=== PATIENT | male | born 1945 | race Caucasian/White ===

== ENCOUNTER → 2024-02-02 12:42 | Outpatient (REF) | payer MEDICARE, OTHER, SELFPAY | LOC: HWRCS 12:42 | PROVIDERS: ATTENDING PHYSICIAN Nurse Practitioner; FAMILY PHYSICIAN Family Medicine | DX: I35.1 Nonrheumatic aortic (valve) insufficiency (principal); I70.0 Atherosclerosis of aorta | CPT/HCPCS: 93306 ==

== ENCOUNTER → 2024-07-16 14:54 | Outpatient (REF) | payer MEDICARE, OTHER, SELFPAY | LOC: RAD 14:54 | PROVIDERS: ATTENDING PHYSICIAN Physician Assistant Medical | DX: R60.0 Localized edema (principal) | CPT/HCPCS: 93971 ==

== ENCOUNTER → 2024-09-28 09:08 | Outpatient (REF) | payer MEDICARE, OTHER, SELFPAY | LOC: RAD 09:08 | PROVIDERS: ATTENDING PHYSICIAN Internal Medicine; FAMILY PHYSICIAN Family Medicine | DX: R13.12 Dysphagia, oropharyngeal phase (principal) | CPT/HCPCS: 74246 ==

== ENCOUNTER → 2024-10-05 09:45 | Outpatient (REF) | payer MEDICARE, OTHER, SELFPAY | LOC: RST 09:45 | PROVIDERS: ATTENDING PHYSICIAN Internal Medicine; FAMILY PHYSICIAN Family Medicine | DX: R13.12 Dysphagia, oropharyngeal phase (principal) | CPT/HCPCS: 74230; 92611 ==

== ENCOUNTER → 2024-10-26 08:45 | Outpatient (REF) | payer MEDICARE, OTHER, SELFPAY | LOC: HWRAD 08:45 | PROVIDERS: ATTENDING PHYSICIAN Student in an Organized Health Care Education/Training Program; FAMILY PHYSICIAN Family Medicine | DX: M25.511 Pain in right shoulder (principal); M25.60 Stiffness of unspecified joint, not elsewhere classified; M79.89 Other specified soft tissue disorders; M10.9 Gout, unspecified; G89.29 Other chronic pain; M25.431 Effusion, right wrist | CPT/HCPCS: 36415; 72072; 72110; 73130 ==

== ENCOUNTER 2024-12-13 06:24 | Day surgery (SDC) | payer MEDICARE, OTHER, SELFPAY | END 2024-12-13 10:10 | disposition home or self-care (01) | LOC: GI 06:24 | PROVIDERS: ATTENDING PHYSICIAN Internal Medicine | DX: R13.10 Dysphagia, unspecified (principal); K44.9 Diaphragmatic hernia without obstruction or gangrene; K22.89 Other specified disease of esophagus; K31.89 Other diseases of stomach and duodenum; K20.90 Esophagitis, unspecified without bleeding | CPT/HCPCS: 43248; 43239; 88305; 88342 ==

== ENCOUNTER 2025-01-09 19:06 | Inpatient (IN) | payer MEDICARE, OTHER, SELFPAY ==
[2025-01-09] VITALS (10 sets, daily range): BP systolic 90–153; BP diastolic 54–68; BMI 24.6; BMI 25.6
--- NOTE | 2025-01-09 16:45 | ED.GENMED ---
History of Present Illness
General
Chief Complaint: Breathing Problem
Time Seen by Provider: 01/09/25 16:38
History of Present Illness
History of Present Illness:
79-year-old male with history of hypertension, hyperlipidemia, kwj-uwfzuiw-bosxavzip diabetes, and former tobacco use presents the emergency department for evaluation of fever as well as shortness of breath and weakness for the past 4 days. History
cannot be obtained from the patient as he is encephalopathic at this time. Per EMS he had room air saturations in the 70s and despite gradual up titration of nasal cannula oxygen, required nonrebreather for adequate oxygenation
Past History
Past History
ED Past Medical History: HTN, Hypercholesterolemia and Other (adrenal insufficiency)
ED Past Surgical History: None
Patient has exhibited threatening behavior?: No
PSI?: No
Social History
Tobacco: Non-smoker
Alcohol: None
Drug: None
Personal:
Living: correction
Employment: Employed
Review of Systems
Review of Systems
Allergies reviewed?: Yes
All Other Systems: ROS reviewed and negative except as documented in HPI and ROS
Phy Exam
Physical Exam
Physical Exam:
GEN: ill-appearing, tachypneic, acute respiratory distress
HEENT: Oral mucosa moist, no scleral icterus
Cardiac: Tachycardic, regular
Lung: Acute respiratory distress with tachypnea, no accessory muscle use, right mid and lower field crackles, diminished bibasilar breath sounds
MSK: No gross deformity or injuries
Skin: Good color, no pallor or jaundice, no rashes
Neuro: Alert, follows commands, profoundly confused
Psych: Calm, cooperative
Scores
Heart Failure Risk
Heart Failure Risk Score: Not Applicable
Sepsis
Sepsis Screening
Sepsis Assessment: Sepsis
Sepsis Screen
Sepsis Screen: Sepsis
Date: 01/09/25
Time: 22:37
Course
Orders/Labs/Results
Orders:
Orders
01/09/25 16:32
Electrocardiogram (*1) Urgent
Reason for Study: Other
Other Reason for Exam: Possible Sepsis
Cardiac Monitoring- Treatment ONCE
EKG- Treatment ONCE
IV Insert/Care/Rem.- Treatment PRN
CR Chest Portable - 1 View Urgent
Comment:
Reason For Exam: sob, fever, hypoxia
Reason Study Needs to be Portable: Patient Unstable
O2 Therapy [RESP] Urgent
Titrate/Wean O2 to maintain O2 sat greater than (%): 93
Special Instructions: TO MAINTAIN CONTINUOUS O2 SATS > OR = 93%
Pulse Ox/cont/shift [RESP] Urgent
Quantity: 1
Special Instructions: CONTINUOUS
01/09/25 16:35
Complete Blood Count/With Diff Urgent
Comprehensive Metabolic Panel Urgent
Lactic Acid Q4H
Comment: ON ICE, CANCEL 2ND ORDER IF FIRST LACTIC ACID LEVEL <2
Blood Culture Q20M
ELISA Source: Blood/Venous
Specimen Description:
Comment: Urgent from separate sites. If patient screens positive for possible sepsis
01/09/25 16:43
Acetaminophen [Tylenol/Feverall] 650 mg .ROUTE .STK-MED ONE
01/09/25 16:44
0.9% Sodium Chloride 1000 ml [Nss] 1,000 ml IV BOLUS
Acetaminophen [Tylenol/Feverall] 650 mg RECTAL NOW STA
01/09/25 16:54
COVID-19 Antigen Urgent
Source: Nasal Swab
Blood Culture Q20M
ELISA Source: Blood/Venous
Specimen Description:
Comment: Urgent from separate sites. If patient screens positive for possible sepsis
Influenza A+B Rapid Molecular Urgent
ELISA Source: Nasal Swab
Specimen Description:
01/09/25 17:04
ABG [Arterial Blood Gas] Urgent
%Oxygen/Room Air: 78
01/09/25 17:20
Azithromycin 500 mg/250 ml [Zithromax Infusion] 500 mg in 250 ml IV NOW
Cefepime HCl [Maxipime] 2,000 mg IV NOW STA
01/09/25 17:51
Sterile Water [Sterile Water For Injection] 10 ml .ROUTE .STK-MED ONE
01/09/25 18:26
Admit/Transfer Patient As Directed
Co-Sign Provider:
Level of Care: Inpatient admission
Assign to:: IMU- Intermediate Care
Physician / Group: mayra
Diagnosis: hypoxemic respiratory failure pneumonia
Reason for Hospitalization: hypoxemic respiratory failure pneumonia
Expected length of stay greater than two midnights?: Yes
ELOS- Estimated Length of Stay in days: 2
I certify the patient meets the requirements for IP care: Yes
PRN Pain Medication Management As Directed
May give lesser potent ordered pain med per pt: Yes
preference::
Protocol:: Medication orders for pain may be administered in a
manner that supports deferring to patient preference
when the pt is:
- Requesting an ordered lesser potent pain medication.
Least to most potent pain medications are defined
as: acetaminophen < NSAID < tramadol < opioids
(morphine, oxycodone, hydromorphone).
- Requesting a lesser dose of the same medication IF
ORDERED.
- Requesting a less intrusive route of administration
if both routes are prescribed by the provider (PO <
IV).
01/09/25 18:27
Code Status As Directed
Resuscitation Status: Full Code
01/09/25 18:29
Legionella Urinary Antigen Urgent
ELISA Source: Urine
Specimen Description:
MRSA Screen Routine
ELISA Source: Nose
Specimen Description:
Respiratory Culture/Gram Stain Urgent
ELISA Source: Sputum
Specimen Description:
Strep pneumoniae Antigen Urgent
ELISA Source: Urine
Specimen Description:
Abnormal Lab Results
01/09/25 01/09/25
16:35 17:04
MCV 79.8 L fL
(80.0-94.0)
MCH 26.0 L pg
(27.0-31.0)
MCHC 32.5 L g/dL
(33.0-37.0)
RDW 21.2 H %
(11.5-14.5)
Plt Count 105 L 10^3/uL
(130-400)
MPV 10.6 H fL
(7.4-10.4)
Abs Immat Gran (auto) 0.1 H 10^3/uL
(0-0.05)
Absolute Neuts (auto) 7.8 H 10^3/uL
(1.4-6.5)
Absolute Monos (auto) 1.0 H 10^3/uL
(0.1-0.6)
Immature Gran % 0.7 H %
(0-0.5)
Neutrophils % 75.4 H %
(42.2-75.2)
Lymphocytes % 11.2 L %
(20.5-51.1)
pCO2 25 L mmHg
(35-48)
pO2 73 L mmHg
(83-108)
HCO3 17.0 L mmol/L
(21-28)
Sodium 132 L mmol/L
(135-145)
Carbon Dioxide 17 L mmol/L
(22-30)
BUN 30 H mg/dl
(9-20)
Creatinine 1.4 H mg/dL
(0.7-1.3)
Glucose 67 L mg/dl
(70-99)
Calcium 8.3 L mg/dl
(8.4-10.2)
Total Bilirubin 1.7 H mg/dl
(0.2-1.3)
Total Protein 5.9 L g/dl
(6.3-8.2)
01/09/25 16:35
01/09/25 16:35
Vital Signs
Initial and Last Documented VS:
Initial Vital Signs
Temp Pulse Resp BP Pulse Ox
103 F H 103 30 153/66 78
01/09/25 16:20 01/09/25 16:20 01/09/25 16:20 01/09/25 16:20 01/09/25 16:20
Last Documented Vital Signs
Temp Pulse Resp BP Pulse Ox
98.4 F 77 27 111/55 98
01/09/25 19:12 01/09/25 22:15 01/09/25 20:00 01/09/25 22:00 01/09/25 22:15
MDM/Problems Addressed
MDM/Problems Addressed:
Significant seen on chest x-ray, patient requiring midflow O2 to maintain saturations, will be admitted for broad-spectrum IV antibiotics
*Critical Care Note
Total Time (30-74mins, 75-104mins- exclusive of procedures): Not Applicable
ED Attending Note
-
Portions of this chart may have been created with voice recognition software.� Occasional wrong word or��sound alike� substitutions may have occurred due to the inherent limitations of voice recognition software.
Discharge Plan
Departure
Patient Disposition: Admit
Date of Disposition: 01/09/25
Time of Disposition: 18:08
Admit to: IMU
Presentation/result/management discussed w/ accepting MD/DO: Hospitalist
Discharge Problem:
Multifocal pneumonia, Acute hypoxic respiratory failure
Interventions
Interventions:
*Risk Screen - Suicide Last Done: 01/09/25 16:20
*General Assessment Last Done: 01/09/25 16:20
*Neglect/Abuse Screening Last Done: 01/09/25 16:20
*ED- Fall Risk Assessment Last Done: 01/09/25 16:20
*ED COVID-19 Vaccine History Last Done: 01/09/25 16:20
ED- Cardiac Assessment Last Done: 01/09/25 16:50
ED- Pulmonary Assessment Last Done: 01/09/25 16:50
[2025-01-09 16:48] LABS: % Basophils 0.5 % (0-2); % Immature Granulocytes 0.7 % (0-0.5); % Lymphocytes 11.2 % (20.5-51.1); % Monocytes 9.2 % (1.7-9.3); % Neutrophils 75.4 % (42.2-75.2); Absolute Basophils 0.1 10^3/uL (0-0.2); Absolute Eosinophils 0.3 10^3/uL (0-0.7); Absolute Immature Granulocytes 0.1 10^3/uL (0-0.05); Absolute Lymphocytes 1.2 10^3/uL (1.2-3.4); Absolute Neutrophils 7.8 10^3/uL (1.4-6.5); Hematocrit 41.8 % (39.0-52.0); Hemoglobin 13.6 g/dL (13.0-18.0); Mean Corp Hgb Conc. 32.5 g/dL (33.0-37.0); Mean Corpuscular Volume 79.8 fL (80.0-94.0); Mean Platelet Volume 10.6 fL (7.4-10.4); Nucleated Red Blood Cells % 0 % (-); Platelet Count 105 10^3/uL (130-400); Red Blood Cell Count 5.24 10^6/uL (4.70-6.10); Red Cell Dist. Width 21.2 % (11.5-14.5); White Blood Cell Count 10.3 10^3/uL (4.8-10.8)
[2025-01-09] MEDS: NSS 1000 IV (16:49)
[2025-01-09] MEDS: TYLENOL/FEVERALL 650 MG RECTAL (16:49)
[2025-01-09 16:58] LABS: Lactic Acid 1.4 mmol/L (0.7-2.0)
[2025-01-09 16:59] LABS: ALT (SGPT) 19 U/L (0-50); AST (SGOT) 43 U/L (17-59); Albumin 3.5 g/dl (3.5-5.0); Alkaline Phosphatase 92 U/L (38-126); Blood Urea Nitrogen 30 mg/dl (9-20); Calcium 8.3 mg/dl (8.4-10.2); Carbon Dioxide 17 mmol/L (22-30); Chloride 102 mmol/L (98-107); Glucose 67 mg/dl (70-99); Potassium 4.3 mmol/L (3.5-5.1); Sodium 132 mmol/L (135-145); Total Bilirubin 1.7 mg/dl (0.2-1.3); Total Protein 5.9 g/dl (6.3-8.2); eGFR 51.45
[2025-01-09 17:15] LABS: B.E. -5.5 mmol/L; O2 Saturation % 96.6 % (94-98); PCO2 25 mmHg (35-48); PO2 73 mmHg (83-108); pH 7.44 (7.35-7.45)
[2025-01-09 17:33] LABS: COVID-19 Antigen Negative (Negative)
[2025-01-09] MEDS: MAXIPIME 2000 MG IV (17:52)
[2025-01-09] MEDS: ZITHROMAX INFUSION 250 IV (17:52)
--- NOTE | 2025-01-09 18:29 | HPS.HSE ---
Addendum entered and electronically signed by Ashely Russell MD 01/09/25 20:28:
Hypotensive so started stress dose steroids.
Addendum entered and electronically signed by Ashely Russell MD 01/09/25 20:24:
Held Antihypertensive medications. Continued IV fluids.
Original Note:
Family Physician
-
Family Physician: Hannah Deras MD
Chief Complaint
-
cough
History of Present Illness
79-year-old male past medical history of gout, chronic anemia, hypertension, adrenal insufficiency, hypothyroidism, melanoma, bipolar depression, diabetes, former tobacco use presenting with fever and shortness of breath and productive cough and
weakness for the past 4 days. He had O2 sat of 70% despite increase in nasal cannula requiring nonrebreather. He denies any sore throat. Denies sick contacts. Denies abdominal pain or nausea vomiting or diarrhea.
Medical History
Past Medical History
Past Medical History: Reports Other (gout, chronic anemia, hypertension, adrenal insufficiency, hypothyroidism, melanoma, bipolar depression, diabetes, former tobacco use )
Past Surgical History: Reports None
Social History
Tobacco: Non-smoker
Alcohol: None
Drug: None
Family History
Family History: Not pertinent
Allergies / Home Medications
Allergies reflects when Allergies were last updated in [employer].
Home Medications with original date entered in [employer]
Allergy/Medication List:
Allergies
Allergy/AdvReac Type Severity Reaction Status Date / Time
pembrolizumab (From Scholrly) Allergy Intermediate Shortness Verified 04/19/23 11:57
of Breath
Home Medications
aspirin 81 mg tablet,delayed release 81 mg PO DAILY Blood Clot Prevention/Tx 01/13/14
atorvastatin 10 mg tablet 10 mg PO QPM High Cholesterol 01/13/14
divalproex 250 mg tablet,delayed release (Depakote) 250 mg PO TID Bipolar Depression 01/13/14
ascorbic acid (vitamin C) 500 mg tablet (Vitamin C) 1 tab PO DAILY Supplement 01/13/18
glucosamine HCl 1,500 mg tablet 1 tab PO DAILY Supplement 01/13/18
melatonin 5 mg tablet 10 mg PO HS PRN SLEEP 01/13/18
carvedilol 12.5 mg tablet 12.5 mg PO Q12H Heart Disease/Condition 01/08/23
cyclosporine 0.05 % eye drops 2 drp ophthalmic (eye) Q12H Eye Condition 01/08/23
levothyroxine 75 mcg tablet 75 mcg PO DAILY AT 0700 Hormonal Agent 01/08/23
multivitamin 1 tab PO DAILY Supplement 01/08/23
tamsulosin 0.4 mg capsule 0.4 mg PO HS Urinary Issue 01/08/23
bupropion HCl 150 mg tablet,12 hr sustained-release 150 mg PO BID Bipolar Depression 03/21/23
hydrocortisone 5 mg tablet 5 mg PO QPM Anti-Inflammatory 03/21/23
Held on 05/06/23. Instructions: Resume on 05/16/23. Resume after completing prednisone taper
hydrocortisone 5 mg tablet 15 mg PO DAILY Anti-Inflammatory 03/21/23
Held on 05/06/23. Instructions: Resume on 05/16/23. Resume after completing prednisone taper
Saccharomyces boulardii 250 mg capsule (Florastor) 250 mg PO BID #14 caps 03/27/23
allopurinol 100 mg tablet 100 mg PO DAILY #30 tabs 04/24/23
ferrous sulfate 325 mg (65 mg iron) tablet (FeroSul) 325 mg PO DAILY #0 tabs 04/24/23
acetaminophen 500 mg tablet (Tylenol Extra Strength) 500 mg PO TID #0 tabs 05/06/23
colchicine (cardiac) 0.5 mg tablet 0.5 mg PO DAILY #30 tabs 05/06/23
prednisone 10 mg tablet See Rx Instructions .Route .COMPLEX #30 tabs 05/06/23
Review of Systems
-
History Source: Patient
A 12 point ROS was completed and negative except as noted: Yes
Constitutional: Reports No Symptoms
EENT: Reports No Symptoms
Respiratory: Reports See HPI
Cardiac: Reports See HPI
Abdomen/GI: Reports No Symptoms
: Reports No Symptoms
Musculoskeletal: Reports No Symptoms
Skin: Reports No Symptoms
Neurological: Reports No Symptoms
Endocrine: Reports No Symptoms
Hematologic/Lymphatic: Reports No Symptoms
Psych: Reports No Symptoms
Physical Exam
Vital Signs
Vital Signs
Temp Pulse Resp BP Pulse Ox
103 F H 97 19 146/68 96
01/09/25 16:20 01/09/25 17:30 01/09/25 17:30 01/09/25 17:00 01/09/25 17:30
Physical Exam
General: Well Developed, Well Nourished and No Apparent Distress
HEENT: NormoCephalic, Moist mucous membranes and Atraumatic
Respiratory: Clear
Cardiac: S1/S2 and Regular Rhythm; No Murmur or Rub
GI: Soft, Non Tender, Non Distended and Normal Bowel Sounds; No Organomegaly
Rectal: Deferred by Provider
Musculoskeletal: No Clubbing, No Cyanosis and No Edema
Skin: No Rash
Neuro: Nonfocal/grossly intact
Laboratory Results
-
01/09/25 16:35
01/09/25 16:35
Laboratory Results
pH 7.44 (7.35-7.45) 01/09/25 17:04
pCO2 25 mmHg (35-48) L 01/09/25 17:04
pO2 73 mmHg (83-108) L 01/09/25 17:04
HCO3 17.0 mmol/L (21-28) L 01/09/25 17:04
Lactic Acid 1.4 mmol/L (0.7-2.0) 01/09/25 16:35
Total Bilirubin 1.7 mg/dl (0.2-1.3) H 01/09/25 16:35
AST 43 U/L (17-59) 01/09/25 16:35
ALT 19 U/L (0-50) 01/09/25 16:35
Alkaline Phosphatase 92 U/L (38-126) 01/09/25 16:35
Data Reviewed
-
Lab Data: Labs Reviewed by me
Old Records: Reviewed
Impression/Plan
-
IMPRESSION:
PLAN:
# Hypoxemic respiratory failure/sepsis (fever, tachycardia) secondary to multifocal pneumonia
# History of MRSA in sputum
-Requiring nonrebreather
-Chest x-ray appears to show severe multifocal pneumonia, report pending
- COVID and influenza negative
- Check sputum culture, blood cultures
- Check strep antigen, Legionella, MRSA
- Vancomycin/Zosyn
# Mild thrombocytopenia secondary to infect
- Continue to monitor
Gout
- Continue allopurinol, colchicine
Chronic anemia
Essential hypertension
- Continue Coreg
History of adrenal insufficiency
- Increase dose of hydrocortisone when medication list available, not hypotensive may not need stress dose steroids
Hypothyroidism
- Continue levothyroxine
Melanoma
Bipolar disorder
- Continue bupropion, Depakote
Type 2 diabetes
Chronic kidney disease
- Renal function at baseline
Former tobacco use
BPH
- Continue tamsulosin
Full code
DVT prophylaxis�heparin
Regular diet
--- NOTE | 2025-01-09 23:35 | PTCARENOTE ---
Patient arrived into room 3342 with ER nurse. Pt is SOB. reports labored breathing. Sp02 88-90% on 15L MF. RT Don at bedside, added humidification and placed NRB. Sp02 increased to 98%. TRAV Santillan made aware. NSR on tele.
[2025-01-10] VITALS (71 sets, daily range): BP systolic 75–139; BP diastolic 41–78; PULSE 2–97
[2025-01-10] MEDS: FLOMAX 0.4 MG PO ×2 (00:04→20:38)
[2025-01-10] MEDS: DEPAKOTE (12 HR RELEASE) PO ×2 (00:04→00:35)
[2025-01-10] MEDS: ZOSYN 50 IV ×5 (00:12→23:14)
[2025-01-10] MEDS: SOLU-CORTEF 50 MG IV ×5 (00:14→23:14)
[2025-01-10] MEDS: HEPARIN 5000 UNITS SC ×3 (00:20→20:37)
[2025-01-10] MEDS: VANCOCIN 540 MG IV (01:03)
[2025-01-10 01:10] LABS: NT-proBNP 9710 pg/ml
--- NOTE | 2025-01-10 01:47 | W.PN.UPDATE ---
Addendum entered and electronically signed by TRAV Duffy 01/10/25 06:12:
bnp 9710 -no baseline for comparison
Pt was comfortable on bipap
Will check ECHO
Consider cardiology consult
Original Note:
Update Note
Progress Note Update
2345 RN reports pt arrived to unit with hypoxia and labored breathing. Placed on 15L o2 (88%) and added NRB which increased ox level to 98%.
PT admitted earlier for dx of multifocal PNA (fevers and sob x 4 days [employer]). Received ivf in ED. Pt with hx of HF. Last Ef 45% january 2024. CXR read as moderate pulmonary edema.
PLan:
-add on BNP to labs drawn earlier (no baseline)
-trial bipap
-hold any further ivf for now.
-may need dose of lasix iv - but will hold off right now as pt was hypotensive in ED and cr 1.5 (even though this may be his baseline)
--- NOTE | 2025-01-10 02:15 | PTCARENOTE ---
Pt tolerated bipap for a little less than two hours. placed back on 15L MF Sp02 95%. ProBNP resulted; reviewed with TRAV Santillan. Pt appears comfortable at this time. call roldan within reach.
[2025-01-10] MEDS: SYNTHROID 75 MCG PO (05:48)
[2025-01-10 06:00] LABS: % Basophils 0.3 % (0-2); % Eosinophils 0.9 % (0-6); % Immature Granulocytes 0.8 % (0-0.5); % Lymphocytes 4.2 % (20.5-51.1); % Monocytes 9.8 % (1.7-9.3); Absolute Eosinophils 0.1 10^3/uL (0-0.7); Absolute Immature Granulocytes 0.1 10^3/uL (0-0.05); Absolute Lymphocytes 0.3 10^3/uL (1.2-3.4); Absolute Monocytes 0.8 10^3/uL (0.1-0.6); Absolute Neutrophils 6.7 10^3/uL (1.4-6.5); Hematocrit 37.4 % (39.0-52.0); Hemoglobin 11.9 g/dL (13.0-18.0); Mean Corp Hgb Conc. 31.8 g/dL (33.0-37.0); Mean Corpuscular Hgb 25.5 pg (27.0-31.0); Mean Corpuscular Volume 80.3 fL (80.0-94.0); Mean Platelet Volume 10.6 fL (7.4-10.4); Nucleated Red Blood Cells % 0 % (-); Platelet Count 101 10^3/uL (130-400); Red Blood Cell Count 4.66 10^6/uL (4.70-6.10); Red Cell Dist. Width 21.1 % (11.5-14.5)
[2025-01-10 06:19] LABS: ALT (SGPT) 18 U/L (0-50); AST (SGOT) 44 U/L (17-59); Albumin 2.9 g/dl (3.5-5.0); Alkaline Phosphatase 74 U/L (38-126); Blood Urea Nitrogen 39 mg/dl (9-20); Calcium 7.9 mg/dl (8.4-10.2); Carbon Dioxide 13 mmol/L (22-30); Chloride 108 mmol/L (98-107); Estimated Creatinine Clearance 38 ml/min; Glucose 77 mg/dl (70-99); Potassium 4.5 mmol/L (3.5-5.1); Sodium 136 mmol/L (135-145); Total Bilirubin 1.1 mg/dl (0.2-1.3); Total Protein 5.1 g/dl (6.3-8.2); eGFR 40.75
--- NOTE | 2025-01-10 06:34 | PTCARENOTE ---
Critical C02 13 reported to Jacque RAVI.
[2025-01-10] MEDS: SODIUM BICARBONATE 50 MEQ IV (08:07)
[2025-01-10] MEDS: VITAMIN B-12 1000 MCG PO (08:11)
[2025-01-10] MEDS: FEOSOL 325 MG PO (08:11)
[2025-01-10] MEDS: COLCHICINE 0.3 MG PO (08:11)
[2025-01-10] MEDS: DEPAKOTE (12 HR RELEASE) 250 MG PO ×3 (08:11→20:38)
[2025-01-10] MEDS: ASPIR LOW (ENTERIC COATED) 81 MG PO (08:11)
[2025-01-10] MEDS: THERAGRAN 1 TABLET PO (08:11)
[2025-01-10] MEDS: ZYLOPRIM 100 MG PO (08:11)
[2025-01-10] MEDS: WELLBUTRIN SR (12 hour sustained release) 150 MG PO ×2 (08:11→20:38)
[2025-01-10] MEDS: RESTASIS 0.05% OPHTHALMIC EMULSION 1 DROPS BOTH EYES ×2 (08:12→20:37)
--- NOTE | 2025-01-10 09:29 | PHA.VAN.IN ---
Assessment
- Assessment
Renal Function: Appears elevated from baseline
Concomitant Antimicrobials: Zosyn 3.375 gram IV q6h
Historical Micro: History of MRSA infection ((+) MRSA Nasal Swab - 05/06/2023)
Plan
- Plan
Initial / Loading Dose: Vancomycin 2000 mg IV x 1 dose
Maintenance Regimen: Dose by level - Hold further dosing for today
Monitoring: Vancomycin random level 6/3 AM labs
MRSA Screen: Ordered per protocol
Pharmacokinetics Vancomycin I
- -
Patient Age: 79
Patient Sex: Male
Vancomycin Day #: 1
Indication: Pulmonary/Respiratory
Requesting Provider: Dr. Russell
Pertinent Antimicrobial Allergies:
NKDA
Height / Weight:
Height 5 ft 11 in
Actual Weight 83.3 kg
Pertinent Past Medical History: T2DM, CKD
- Vital Signs / Lab Results
Temp Pulse Resp BP Pulse Ox
97.6 F 71 23 117/57 96
01/10/25 07:00 01/10/25 08:00 01/10/25 08:00 01/10/25 08:00 01/10/25 08:00
Lab Results - Hematology
01/09/25 01/10/25
16:35 05:36
WBC 10.3 8.0
Lab Results - Chemistry
01/09/25 01/10/25
16:35 05:36
BUN 30 H 39 H
Creatinine 1.4 H 1.7 H
Estimated Creat Clear 38
Albumin 3.5 2.9 L
01/09/25 01/09/25
16:35 20:45
Lactic Acid 1.4 Cancelled
Microbiology Results
01/09/25 23:57 Legionella Urinary Antigen - Final
Urine Negative for Legionella pneumophila Serogroup 1 antigen.
A negative result does not rule out the possiblity of
Legionella infection due to other serogroups or species of
Legionella. Clinical correlation is recommended.
Streptococcus pneumoniae Antigen (M - Final
Negative for Streptococcus pneumoniae antigen.
A negative result does not exclude infection with
Streptococcus pneumoniae. Clinical correlation is
recommended.
01/09/25 16:54 Influenza Types A & B (ANGELITA) - Final
Nasal Swab Negative for Influenza A & B, NAAT
Negative results must be combined with clinical observations
and patient history.
Nucleic Acid Amplification test (NAAT)performed on the
[employer] platform.
[2025-01-10 09:56] LABS: Glucose - Point of Care 130 mg/dl (70-99)
[2025-01-10] MEDS: DILAUDID 0.25 MG IV (10:01)
[2025-01-10 10:05] LABS: % Basophils 0.4 % (0-2); % Eosinophils 0.4 % (0-6); % Immature Granulocytes 0.7 % (0-0.5); % Lymphocytes 4.5 % (20.5-51.1); % Monocytes 8.2 % (1.7-9.3); % Neutrophils 85.8 % (42.2-75.2); Absolute Immature Granulocytes 0.1 10^3/uL (0-0.05); Absolute Lymphocytes 0.3 10^3/uL (1.2-3.4); Absolute Monocytes 0.6 10^3/uL (0.1-0.6); Absolute Neutrophils 6.5 10^3/uL (1.4-6.5); Hematocrit 37.1 % (39.0-52.0); Hemoglobin 12.2 g/dL (13.0-18.0); Mean Corp Hgb Conc. 32.9 g/dL (33.0-37.0); Mean Corpuscular Hgb 26.2 pg (27.0-31.0); Mean Corpuscular Volume 79.8 fL (80.0-94.0); Mean Platelet Volume 10.7 fL (7.4-10.4); Nucleated Red Blood Cells % 0 % (-); Platelet Count 99 10^3/uL (130-400); Red Blood Cell Count 4.65 10^6/uL (4.70-6.10); White Blood Cell Count 7.6 10^3/uL (4.8-10.8)
[2025-01-10 10:12] LABS: INR 1.36
[2025-01-10 10:13] LABS: APTT 44.7 Sec (23.4-35.0)
[2025-01-10 10:15] LABS: Lactic Acid 0.8 mmol/L (0.7-2.0)
[2025-01-10] MEDS: MORPHINE SULFATE 2 MG IV (10:19)
[2025-01-10 10:20] LABS: B.E. -9.7 mmol/L; O2 Saturation % 98.9 % (94-98); PCO2 23 mmHg (35-48); PO2 97 mmHg (83-108); pH 7.38 (7.35-7.45)
[2025-01-10] MEDS: LOW STRENGTH ASPIRIN 324 MG PO (10:20)
[2025-01-10 10:25] LABS: HCO3 13.6 mmol/L (21-28)
[2025-01-10 10:30] LABS: Troponin I 0.043 ng/ml
[2025-01-10 10:36] LABS: ALT (SGPT) 21 U/L (0-50); AST (SGOT) 44 U/L (17-59); Alkaline Phosphatase 81 U/L (38-126); Blood Urea Nitrogen 41 mg/dl (9-20); Calcium 7.8 mg/dl (8.4-10.2); Carbon Dioxide 13 mmol/L (22-30); Chloride 106 mmol/L (98-107); Estimated Creatinine Clearance 36 ml/min; Glucose 143 mg/dl (70-99); Potassium 4.3 mmol/L (3.5-5.1); Sodium 135 mmol/L (135-145); Total Bilirubin 1.1 mg/dl (0.2-1.3); Total Protein 5.3 g/dl (6.3-8.2); eGFR 38.05
--- NOTE | 2025-01-10 10:40 | RR ---
A Rapid Response was called on this patient, please see Rapid Response form.
0940 Called into room by staff, pt c/o 05/20 chest pain / pressure heaviness- EKG obtained BP 123/65 tele NSR 70 95% on 15L midflow- Rapid response called- Dr. Rosario notified- see Rapid response form
summary 3SL NTG / IV Dilaudid/ then required IV Levofed for maps 50s- started at 10am titrated up to 6mcg per parameters within 15 min. IV MSO4 given as pain still 03/20. BY 1030 pain 6. PCXR/ ECHO done at bedside. Currently US Legs at bedside.
Pain is currently at 5. BLadder scanned 325ml as prior to pain he only voided few drops in urinal. at bedside.
--- NOTE | 2025-01-10 12:22 | PTCARENOTE ---
Currently chest pain free, color improved not pale or diaphoretic. BP 120s/80s on 6mcg Levophed IV. Remains on 15L MF O2 -sao2 93%.
--- NOTE | 2025-01-10 14:05 | W.PN.HOSP.TC ---
Today's Communication/Plan
-
Stress dose steroids as has adrenal insufficiency
wean pressors, MAP goal >65
broad spectrum abx
Tx to ICU for closer monitoring
Wean o2
Pulmonary Toilet
Assessment / Plan
Assessment / Plan
# Hypoxemic respiratory failure/sepsis (fever, tachycardia) secondary to multifocal pneumonia
-possible viral pneumonia
# History of MRSA in sputum
-CT imaging - diffuse ground glass opacities
-Requiring nonrebreather
-Chest x-ray appears to show severe multifocal pneumonia, report pending
- COVID and influenza negative
- Check sputum culture, blood cultures
- Negative strep antigen, Legionella, MRSA
- Vancomycin/Zosyn
- Start doxycycline
- NO DVT on US
-IVF PRN
-Incentive rizwana, acapella
-At this point, will continue hydrocortisone - for indirect pulmonary support
#Septic Shock
-IVF PRn
-cont abx
-MAP goal >65
- Lactate neg
- Wean pressors as needed
-Continue Hydrocortisone for stress dose steroids
#Chest pain
-i suspect pleuritic with pneumonia
-was given 325 asa and nitro with no relief
-Trend Trops until peak
-ECHO with no WMA
#metabolic Acidosis
#ROHITH
-LR bolus now
-monitor HCO3
# Mild thrombocytopenia secondary to sepsis
- Continue to monitor
Gout
- Continue allopurinol, colchicine
Chronic anemia
Essential hypertension
- Hold Coreg
History of adrenal insufficiency
- Stress dose steroids
Hypothyroidism
- Continue levothyroxine
-F/u TSH
Melanoma
Bipolar disorder
- Continue bupropion, Depakote
Type 2 diabetes
ROHITH on Chronic kidney disease
- monitor with resuscitation
Former tobacco use
BPH
- Continue tamsulosin
Full code
DVT prophylaxis�heparin
Regular diet
Total time spent on today's encounter was 50 minutes which included time spent in counseling the patient/family regarding diagnosis and treatment plan as listed above, goals of care, and symptom management. Case was discussed with nursing staff,
specialists, and care coordinators/case management. All labs and imaging personally reviewed by me. Remainder the time spent in detailed review of previous records, lab data, imaging, and other medical provider documentation.
Anticipated Discharge: > 48 hours
Subjective/Interval History
-
Date of Service: January 10, 2025
Had chest pain this morning, large improvement with nitroglycerin. Morphine assisted in improvement of pain
Objective Data
-
Labs:
Laboratory Results
01/10/25 01/10/25 01/10/25
05:36 09:50 10:02
WBC 8.0 7.6
Hgb 11.9 L 12.2 L
Hct 37.4 L 37.1 L
Plt Count 101 L 99 L
PT 17.0 H
INR 1.36
APTT 44.7 H
HCO3 13.6 L*
Sodium 136 135
Potassium 4.5 4.3
Chloride 108 H 106
Carbon Dioxide 13 L* 13 L*
BUN 39 H 41 H
Creatinine 1.7 H 1.8 H
Glucose 77 143 H
Calcium 7.9 L 7.8 L
Total Bilirubin 1.1 1.1
AST 44 44
ALT 18 21
Alkaline Phosphatase 74 81
Vital Signs:
Vital Signs
Temp Pulse Resp BP Pulse Ox
97.9 F 69 22 126/63 93
01/10/25 11:00 01/10/25 12:00 01/10/25 12:00 01/10/25 12:00 01/10/25 12:00
I&O
01/09/25 01/10/25 01/11/25
06:59 06:59 06:59
Intake Total 600 / 600
Output Total 200 / 200
Balance 400 / 400
Review of Systems
-
History Source: Patient
All other systems: Not reviewed unless documented
Physical Exam
-
General: Well Developed, Well Nourished and No Apparent Distress
HEENT: Normocephalic and Atraumatic
Respiratory: Rhonchi (Bilaterally); Negative Wheezes
Cardiac: Regular Rhythm and S1/S2; Negative Murmur
GI: Soft, Nontender, Nondistended and Normal Bowel Sounds
Musculoskeletal: No Clubbing, No Cyanosis, No Edema and Other (joints improved)
Neuro: Awake
Data Reviewed
-
Diagnostic Radiology: Report Reviewed by me
CT Scan: Report Reviewed by me
Labs: Labs Reviewed by me
[2025-01-10] MEDS: LR 1000 IV (14:40)
--- NOTE | 2025-01-10 14:51 | CON.INTV ---
Consultation
Consultation Request
Date/Time Consultation Requested: 01/10/2025
Date/Time Consultation Performed: 01/10/2025
Requesting Provider: Jimbo Rosario
Performing Provider: Jackie Rodriguez
Reason for Consultation: Shock
Medical History
-
Chief Complaint: Shortness of breath
History of Present Illness:
Patient is a very pleasant 79-year-old gentleman with history of gout, adrenal insufficiency on chronic hydrocortisone who presented to the hospital with shortness of breath which started around Friday. Patient does not report much cough, sore
throat, runny nose or any expectoration. But he reports that his shortness of breath rather came quickly and has been progressive. He was noted to be hypoxic with O2 saturation in 70s and was on nasal cannula and then later on nonrebreather.
Patient's imaging was suggestive of bilateral infiltrates concerning for cardiogenic versus noncardiogenic edema. He was admitted to the hospital with suspected multifocal pneumonia and was started on broad-spectrum antibiotics. This morning an
AIRPLANE PILOT CROP DUSTING was called for hypotension and patient has since been on low-dose Levophed infusion. He had a follow-up CT earlier this morning which is suggestive of bilateral interstitial infiltrates concerning for pulmonary edema versus atypical pneumonia
versus ARDS. In view of increased oxygen requirement, hypotension and pressor requirement, patient is being transferred to ICU and wire coiler machine operator consult is requested for further input.
Patient denies any expectoration, hemoptysis or pleuritic discomfort. No reported sick contacts. No similar episodes in the past. Patient has chronically been on hydrocortisone due to adrenal insufficiency due to Keytruda use about 2 years ago
from melanoma. He has been off this medication since. Recently he was treated with higher dose of prednisone for suspected gout flare and right arm inflammation. He reports in the past also he has required intermittent prednisone bursts for
suspected gout flare versus other rheumatological diagnosis. He follows up with the rheumatology clinic as outpatient. He finished prednisone taper on 01/04 and has currently been on his baseline hydrocortisone.
Past Medical History: Reports Other (gout, chronic anemia, hypertension, adrenal insufficiency, hypothyroidism, melanoma, bipolar depression, diabetes, former tobacco use )
Past Surgical History: Reports None
Social History
Tobacco: Non-smoker
Alcohol: None
Drug: None
Family History
Family History: Not pertinent
Allergies / Home Medications
Allergies / Home Medications
Allergies
Allergy/AdvReac Type Severity Reaction Status Date / Time
pembrolizumab (From [employer]) Allergy Intermediate Shortness Verified 04/19/23 11:57
of Breath
Home Medications
�Medication �Instructions �Recorded �Confirmed �Last Taken �Type
aspirin 81 mg tablet,delayed 81 mg PO DAILY Blood Clot 01/13/14 01/09/25 01/07/23 20:00 History
release Prevention/Tx
atorvastatin 10 mg tablet 10 mg PO QPM High Cholesterol 01/13/14 01/09/25 01/07/23 18:00 History
divalproex 250 mg tablet,delayed 250 mg PO TID Bipolar Depression 01/13/14 01/09/25 01/08/23 07:00 History
release (Depakote)
carvedilol 12.5 mg tablet 12.5 mg PO Q12H Heart 01/08/23 01/09/25 01/08/23 07:00 History
Disease/Condition
cyclosporine 0.05 % eye drops 1 drp BOTH EYES Q12H Eye Condition 01/08/23 01/09/25 01/08/23 07:00 History
multivitamin 1 tab PO DAILY Supplement 01/08/23 01/09/25 01/07/23 18:00 History
tamsulosin 0.4 mg capsule 0.4 mg PO HS Urinary Issue 01/08/23 01/09/25 01/07/23 20:00 History
bupropion HCl 150 mg tablet,12 hr 150 mg PO BID Bipolar Depression 03/21/23 01/09/25 Unknown History
sustained-release
allopurinol 100 mg tablet 100 mg PO DAILY #30 tabs 04/24/23 01/09/25 Unknown Rx
ferrous sulfate 325 mg (65 mg 325 mg PO DAILY #0 tabs 04/24/23 01/09/25 Unknown Rx
iron) tablet (FeroSul)
acetaminophen 500 mg tablet 500 mg PO DAILYPRN PRN mild pain 01/09/25 01/09/25 Unknown History
(Tylenol Extra Strength)
amlodipine 5 mg tablet 5 mg PO DAILY Blood Pressure 01/09/25 01/09/25 Unknown History
carboxymethylcellulose 0.5 1 drp ophthalmic (eye) DAILYPRN 01/09/25 01/09/25 Unknown History
%-glycerin 0.9 % eye drops PRN dry eyes
(Refresh Optive)
colchicine 0.6 mg tablet 0.3 mg PO DAILY Gout 01/09/25 01/09/25 Unknown History
cyanocobalamin (vitamin B-12) 1,000 mcg PO DAILY Supplement 01/09/25 01/09/25 Unknown History
1,000 mcg tablet
famotidine 20 mg tablet 20 mg PO HSPRN PRN gerd 01/09/25 01/09/25 Unknown History
furosemide 20 mg tablet 20 mg PO DAILY Fluid 01/09/25 01/09/25 Unknown History
Retention/Swelling
hydrocortisone 5 mg tablet 5 mg PO QPM ADRENAL INSUFFICIENCY 01/09/25 01/09/25 Unknown History
hydrocortisone 5 mg tablet 15 mg PO DAILY@0800 ADRENAL 01/09/25 01/09/25 Unknown History
INSUFFICIENCY
levothyroxine 75 mcg tablet 75 mcg PO DAILY@0700 Thyroid 01/09/25 01/09/25 Unknown History
sacubitril 49 mg-valsartan 51 mg 0.5 tab PO BID Heart 01/09/25 01/09/25 Unknown History
tablet (Entresto) Disease/Condition
testosterone 1 pump topical DAILY Hormonal Agent 01/09/25 01/09/25 Unknown History
Review of Systems
-
Hematologic/Lymphatic: Other (All 14 systems reviewed and negative except as stated above in the history of present illness.)
Vitals / Labs / Diagnostic Testing
Vital Signs
Temp Pulse Resp BP Pulse Ox
97.9 F 66 20 120/59 89
01/10/25 11:00 01/10/25 14:30 01/10/25 14:30 01/10/25 14:30 01/10/25 14:30
Lab Data
01/10/25 09:50
01/10/25 09:50
Laboratory Results
01/09/25 01/10/25 01/10/25
17:04 09:50 10:02
PT 17.0 H
INR 1.36
APTT 44.7 H
pH 7.44 7.38
pCO2 25 L 23 L
pO2 73 L 97
HCO3 17.0 L 13.6 L*
O2 Delivery Level
Microbiology
01/09/25 00:01 Nose Nasal Screen MRSA (PCR) - Final
MRSA not detected - performed by PCR methodology.
01/09/25 23:57 Urine Legionella Urinary Antigen - Final
Negative for Legionella pneumophila Serogroup 1 antigen.
A negative result does not rule out the possiblity of
Legionella infection due to other serogroups or species of
Legionella. Clinical correlation is recommended.
01/09/25 23:57 Urine Streptococcus pneumoniae Antigen (M - Final
Negative for Streptococcus pneumoniae antigen.
A negative result does not exclude infection with
Streptococcus pneumoniae. Clinical correlation is
recommended.
01/09/25 16:54 Nasal Swab Influenza Types A & B (ANGELITA) - Final
Negative for Influenza A & B, NAAT
Negative results must be combined with clinical observations
and patient history.
Nucleic Acid Amplification test (NAAT)performed on the
SGB platform.
Diagnostic Testing:
Physical Exam
-
HEENT: Normocephalic
Cardiovascular: S1/S2 and Peripheral Edema (Trace pedal edema )
Respiratory: Other (Borderline tachypnea, patient developing mild shortness of breath while talking.) and Other (Inspiratory rales, bilaterally lower lobes )
GI: Soft and Non Distended
Neurology: Awake, Alert and Oriented
Skin: Warm and Dry
Assessment
-
#1. Acute hypoxic respiratory failure
- Bilateral infiltrates noted on imaging with broad differential diagnosis of cardiogenic versus noncardiogenic edema, both infectious and inflammatory diseases are in differential diagnosis
- Currently on 10 to 12 L supplemental oxygen, PO2 of 97 consistent with wide A-a gap
- Transferred to ICU, low threshold to proceed with high flow nasal cannula if needed
- Patient full code, discussed with him regarding intubation and mechanical ventilation in the event that his respiratory status deteriorates
#2. ?Bilateral interstitial infiltrates
- ?Atypical pneumonia vs Pulmonary edema vs ILD
- Patient on exam has only trace pedal edema however BNP is elevated. With his chronic hydrocortisone use and recent prednisone use, atypical infection including PJP are in differential diagnosis
- Continue broad-spectrum antibiotic Vanco, Zosyn, doxycycline. Patient unable to produce any sputum for culture
- Legionella and streptococcal pneumonia antigen negative, influenza A, B screen negative. Blood cultures negative so far. COVID-19 screen negative. Nasal MRSA screen on 01/09 negative
- Check extended respiratory viral panel, will also send for Fungitell. A-a gradient is increased.
- Check connective tissue panel including rheumatoid factor, REGINA, ANCA, and CRP
- f/u ABG and CXR in AM
- Might need right heart cath for further characterization
- Respiratory status tenuous, patient will not tolerate conscious sedation for bronchoscopy at present.
- Hemoglobin has been stable, diffuse alveolar hemorrhage less likely
#3. Hypotension with shock
- Currently on Levophed at 2, continue to titrate down as tolerated
- Lactate is reassuring at 0.8 this morning
- Multifocal pneumonia with septic shock versus cardiogenic shock both in differential diagnosis
- Await cardiology input also considering BNP is 9710.
- Continue stress dose steroids and broad-spectrum antibiotics
#4. History of adrenal insufficiency
- Chronically has been on hydrocortisone, continue stress dose for now
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
#5. History of gout,? Rheumatism
- Patient has chronically been on colchicine
- For right arm swelling, has been treated with prednisone taper twice in the last 6 months, he recently finished prednisone on January 04
- Check connective tissue disease panel
- Patient follows up with template reproduction technician as outpatient
#6. Minimal troponin leak
- Cardiology consult, await further recommendations
- Suspect it is type II related to hypoxic respiratory failure and hypotension
- Chest pain-free during my evaluation. Cardiac catheterization in 12/2022 showed only minor luminal irregularities in LAD
- Also history of aortic regurgitation and diastolic dysfunction in the past.
- In view of hypotension and need for Levophed, hold additional diuresis
#7. Chronic kidney disease, stage III/IV
- Chronic metabolic acidosis noted
- Creatinine 1.8 this morning
- Check UA for any hematuria or proteinuria
Other chronic medical diagnoses:
-HTN
-DM
-h/o Bipolar disease
-Hypothyroidism
-h/o melanoma
-BPH
-Anemia, chronic
DVT prophylaxis, subcu heparin
Critical Care time 68 mins -- The patient is admitted for acute critical illness for the treatment of vital organ failure and/or prevention of further life-threatening conditions. Total care includes time spent in review of history, physical exam,
medications, hemodynamic/ventilator parameters, laboratory data, imaging and discussion with house staff, pharmacy, respiratory therapy, wholesaler, and nursing.
Data:
CXR 01/2025: New findings suggesting moderate pulmonary edema. Pneumonia not completely excluded. Clinical and laboratory correlation recommended
CT Chest 01/2025: 1. Diffusely bilateral groundglass opacities with scattered areas of interlobular septal thickening and more confluent airspace disease in the posterior aspects of both upper and lower lobes. Trace bilateral pleural effusions and
moderate cardiomegaly. Findings suggestive of pulmonary edema. Additional considerations include ARDS and diffuse alveolar hemorrhage.
ECHO 01/2025: -Left ventricular ejection fraction is 60-65%. Normal regional wall motion.
-Enlarged right ventricular size. Normal right ventricular systolic function.
-Aortic sclerosis without stenosis. Mild to moderate, eccentric aortic
regurgitation.
-Mild tricuspid regurgitation. Estimated pulmonary artery pressure of 40-45
mmHg.
-Mildly dilated aortic root (4.2 cm)
- PASP 40-45 mm with mild TR
ECHO 01/2024: Normal left ventricular chamber size with moderate concentric left ventricular
hypertrophy.
Left ventricular ejection fraction is 40-45% by Leo's method of disc.
Mild, eccentric aortic regurgitation.
Moderate pulmonary hypertension.
Dilated Sinus of Valsalva and ascending aorta.
Compared to the prior on 01/04/2022, there is now stage 2 diastolic dysfunction
and moderate pulmonary hypertension.
[facility] 12/2022: 1. Right dominant circulation with cloacal left main and minor luminal irregularities in the LAD.
2. Top normal to mildly elevated filling pressures (LVEDP = 15 mmHg at 81.5 kg).
3. Mild to moderate aortic valve insufficiency.
4. Top normal to mildly dilated aortic root.
--- NOTE | 2025-01-10 15:10 | CON.CAR ---
Addendum entered and electronically signed by Natanael Lopez MD 01/10/25 17:14:
I saw and examined the patient.
The METAL SHEET ROLLER OPERATOR's note was reviewed and I agree with the note.
Comment: 79-year-old male (known to Dr. Lopez, his primary optical element coater), with NICM, HFmrEF, mild to moderate aortic insufficiency, hypertension, adrenal insufficiency on steroids, and former smoker who presented to the emergency room with
complaints of cough. He endorsed associated shortness of breath and weakness for 4 days prior to arrival. He presented hypoxic with an SpO2 in the 70s. Cardiology was consulted for the possibility of acute on chronic heart failure.
His exam is not very impressive for CHF. He has no significant edema and no bloating. His main complaint is SOB and he has been febrile. Troponins are flat/improved and his echo shows improved overall LVEF.
- Cont supportive care
Echo January 10 2025: CONCLUSIONS
-Left ventricular ejection fraction is 60-65%. Normal regional wall motion.
-Enlarged right ventricular size. Normal right ventricular systolic function.
-Aortic sclerosis without stenosis. Mild to moderate, eccentric aortic
regurgitation.
-Mild tricuspid regurgitation. Estimated pulmonary artery pressure of 40-45
mmHg.
-Mildly dilated aortic root (4.2 cm).
Compared to previous echo on 01/29/2024, LVEF has normalized (previously 40-
45%).
Original Note:
Consultation
Consultation Request
Date/Time Consultation Requested: 01/10/2025 15:00
Date/Time Consultation Performed: 01/10/2025 15:10
Requesting Provider: Dr. Rosario
Performing Provider: TRAV Thompson for Dr. Lopez
Reason for Consultation: Abnormal proBNP
Medical History
-
Chief Complaint: Cough
History of Present Illness:
Ananda Gutierrez is a 79-year-old male (known to Dr. Lopez, his primary optical element coater), with NICM, HFmrEF, mild to moderate aortic insufficiency, hypertension, adrenal insufficiency on steroids, and former smoker who presented to the emergency room
with complaints of cough. He endorsed associated shortness of breath and weakness for 4 days prior to arrival. He presented hypoxic with an SpO2 in the 70s. Cardiology was consulted for the possibility of acute on chronic heart failure. He also
had chest pain today. It was greater than 3 hours in length. He describes it as severe and 8/10 severity. He had associated shortness of breath and diaphoresis. Troponin at the time of the event 0.043, now 0.033. He is currently chest
pain-free. He had 3 sublingual nitroglycerin and 0.25 mg of intravenous Dilaudid that did not help his chest pain. He then had 2 mg of morphine and achieved relief.
Past Medical History
Past Medical History: Cancer (skin), CHF (HFmrEF, NICM), HTN, Hypercholesterolemia, Valvular Disease (AI) and Other (Adrenal insufficiency)
Past Surgical History: Orthopedic
Social History
Tobacco: Former Smoker
Personal:
Living: With Family
Employment: Retired
Family History
Family History: Reviewed & Not Pertinent
Allergies / Home Medications
Allergy/AdvReac Type Severity Reaction Status Date / Time
pembrolizumab (From [employer]) Allergy Intermediate Shortness Verified 04/19/23 11:57
of Breath
�Medication �Instructions �Recorded �Confirmed �Type
aspirin 81 mg tablet,delayed 81 mg PO DAILY Blood Clot 01/13/14 01/09/25 History
release Prevention/Tx
atorvastatin 10 mg tablet 10 mg PO QPM High Cholesterol 01/13/14 01/09/25 History
divalproex 250 mg tablet,delayed 250 mg PO TID Bipolar Depression 01/13/14 01/09/25 History
release (Depakote)
carvedilol 12.5 mg tablet 12.5 mg PO Q12H Heart 01/08/23 01/09/25 History
Disease/Condition
cyclosporine 0.05 % eye drops 1 drp BOTH EYES Q12H Eye Condition 01/08/23 01/09/25 History
multivitamin 1 tab PO DAILY Supplement 01/08/23 01/09/25 History
tamsulosin 0.4 mg capsule 0.4 mg PO HS Urinary Issue 01/08/23 01/09/25 History
bupropion HCl 150 mg tablet,12 hr 150 mg PO BID Bipolar Depression 03/21/23 01/09/25 History
sustained-release
allopurinol 100 mg tablet 100 mg PO DAILY #30 tabs 04/24/23 01/09/25 Rx
ferrous sulfate 325 mg (65 mg 325 mg PO DAILY #0 tabs 04/24/23 01/09/25 Rx
iron) tablet (FeroSul)
acetaminophen 500 mg tablet 500 mg PO DAILYPRN PRN mild pain 01/09/25 01/09/25 History
(Tylenol Extra Strength)
amlodipine 5 mg tablet 5 mg PO DAILY Blood Pressure 01/09/25 01/09/25 History
carboxymethylcellulose 0.5 1 drp ophthalmic (eye) DAILYPRN 01/09/25 01/09/25 History
%-glycerin 0.9 % eye drops PRN dry eyes
(Refresh Optive)
colchicine 0.6 mg tablet 0.3 mg PO DAILY Gout 01/09/25 01/09/25 History
cyanocobalamin (vitamin B-12) 1,000 mcg PO DAILY Supplement 01/09/25 01/09/25 History
1,000 mcg tablet
famotidine 20 mg tablet 20 mg PO HSPRN PRN gerd 01/09/25 01/09/25 History
furosemide 20 mg tablet 20 mg PO DAILY Fluid 01/09/25 01/09/25 History
Retention/Swelling
hydrocortisone 5 mg tablet 5 mg PO QPM ADRENAL INSUFFICIENCY 01/09/25 01/09/25 History
hydrocortisone 5 mg tablet 15 mg PO DAILY@0800 ADRENAL 01/09/25 01/09/25 History
INSUFFICIENCY
levothyroxine 75 mcg tablet 75 mcg PO DAILY@0700 Thyroid 01/09/25 01/09/25 History
sacubitril 49 mg-valsartan 51 mg 0.5 tab PO BID Heart 01/09/25 01/09/25 History
tablet (Entresto) Disease/Condition
testosterone 1 pump topical DAILY Hormonal Agent 01/09/25 01/09/25 History
Physical Exam
Vital Signs
Temp Pulse Resp BP Pulse Ox
97.9 F 66 20 120/59 89
01/10/25 11:00 01/10/25 14:30 01/10/25 14:30 01/10/25 14:30 01/10/25 14:30
Lab Results
01/10/25 09:50
01/10/25 09:50
Troponin I 0.043 ng/ml H* 01/10/25 09:50
Fzl-U-Xrztsesfxyp Pept 9710 pg/ml 01/09/25 16:35
Impression / Plan
-
I/P: 79M with NICM, HFmrEF, mild to moderate aortic insufficiency, hypertension, adrenal insufficiency on steroids, and former smoker who presented to the emergency room with complaints of cough
Primary Secretary Book Keeper: Dr. Lopez
Septic shock - a threat to life
- Tachycardia, hypotension, and fever
- Negative influenza A/B, Legionella, and SARS-CoV-2
- Stress dose steroids started
- Requiring vasopressor support with Levophed at 2 mcg/min
- Lactate < 2
Acute hypoxic respiratory failure
- Requiring nonrebreather
- Chest CT with GGO and trace bilateral pleural effusions
- Cath 12/2022: Top normal to mildly elevated filling pressures (LVEDP = 15 mmHg at 81.5 kg)
HFmrEF, recovered
- LVEF now 60 to 65%, previous 40-45%.
- GDMT on hold in the setting of hypotension
- proBNP 9000, no comparison, currently with ROHITH
Chest pain
- Does not sound consistent with ACS, troponin trending down despite hours of severe chest pain
- Hours of CP with associated SOB and diaphoresis
Abnormal troponin, type unknown
- Could be type II IL versus nonischemic myocardial injury, trend
- EKG with LVH
ROHITH on CKD with acidosis
- Creatinine 1.06 on outpatient labs (02/2024)
- Follow renal function
Adrenal insufficiency, acute on chronic
- Started on stress dose steroids today, 01/10/2025
Aortic insufficiency, mild to moderate, unchanged
Mildly dilated aortic root (4.2 cm)
Hypertension, medical therapy on hold in the setting of hypotension
Melanoma status post resection and treatment with Keytruda
Prediabetes
Bipolar disorder, on bupropion and Depakote
Former tobacco use, continue cessation recommended
Data Reviewed
-
EKG: Report Reviewed by me (Sinus rhythm, LVH, rate 99)
Medical Tests (Nuc Med, Echo etc): Report Reviewed by me (Echocardiogram as above)
Labs: Labs Reviewed by me
Old Records: Reviewed
--- NOTE | 2025-01-10 15:21 | PTCARENOTE ---
CT Chest completed. IVF bolus infusing. MAPs now 80s weaned Levophed to 2mcg/. Just voided 150ml elkin urine.
[2025-01-10 15:40] LABS: TSH Reflex To Free T4 1.56 uIU/ml (0.47-4.68)
--- NOTE | 2025-01-10 16:12 | PTCARENOTE ---
Pt. transferred from IMU. Increased work of breathing and increasing vasopressor demands.
Remains on 12L midflo dyspnea upon speaking, labored breathing at baseline. Sp02 94%.
-Per underground utility locator if sp02 drops below 90 increase modality to HHF.
Norepi titrated off via NIBP, remains normotensive at this time.
All labs sent, awaiting urine specimen.
--- NOTE | 2025-01-10 16:15 | PTCARENOTE ---
Report given to Edgard transferred to 3370 ICU by RN.
--- NOTE | 2025-01-10 16:30 | CM ---
Patient with Dx Hypoxemic respiratory failure/sepsis secondary to pneumonia. O2 15L. Receiving Levophed gtt, IV Lasix, Solucortef, IV Abx. Patient transferred from IMU to ICU today.
Spoke with patient's Yola;
the patient resides with his in a 2 story house with 1 outside step and chair lift to 2nd floor bedroom.
The patient was independent in ADLs and ambulation using his RW.
DME - RW
Prior VN
Prior [facility]
PCP - Hannah Deras
Pharmacy - [facility]
made aware patient was transferred to ICU a short time ago - gave the phone to nurse Ennis who provided with an update on his status.
Plan follow patient's respiratory status and mobility.
Plan TBD.
[2025-01-10 16:32] LABS: Troponin I 0.033 ng/ml
[2025-01-10 16:42] LABS: C-Reactive Protein > 270.00 mg/L (0.0-10.00)
[2025-01-10] MEDS: VIBRAMYCIN 100 MG PO (16:53)
[2025-01-10] MEDS: LASIX 20 MG IV (16:54)
[2025-01-10 17:22] LABS: Rheumatoid Agglutinin Less Than 10 IU (<10 IU)
--- NOTE | 2025-01-10 17:37 | PTCARENOTE ---
02 increased to 15L midflo.
[2025-01-10] MEDS: LIPITOR 10 MG PO (18:03)
--- NOTE | 2025-01-10 20:30 | PTCARENOTE ---
manager project management, pt aaox3, denies pain or SOB. SR HR 60s. Sat 96% on 15L MFNC. LA IV x 2, WNL. POC discussed, call roldan with pt.
[2025-01-10 22:10] LABS: Urine Squamous Cell 0-2 /LPF (Few)
[2025-01-10 22:12] LABS: Urine Bacteria Many (Negative)
[2025-01-11] VITALS (22 sets, daily range): BP systolic 113–142; BP diastolic 61–74; PULSE 2–88; BMI 25.7
--- NOTE | 2025-01-11 | PTCARENOTE ---
no changes in assessment, CHG cloths, era care. pt restful on Bipap. call roldan in reach.
--- NOTE | 2025-01-11 00:25 | PTCARENOTE ---
pt on Bipap with 15L- Sat 88-91%, pt appears comfortable, RR 16. BDoughertyNP aware - no changes at this time, will monitor.
--- NOTE | 2025-01-11 04:00 | PTCARENOTE ---
no changes in assessment.
[2025-01-11 04:38] LABS: Hematocrit 34.3 % (39.0-52.0); Hemoglobin 11.4 g/dL (13.0-18.0); Mean Corp Hgb Conc. 33.2 g/dL (33.0-37.0); Mean Corpuscular Hgb 25.9 pg (27.0-31.0); Mean Corpuscular Volume 77.8 fL (80.0-94.0); Mean Platelet Volume 10.1 fL (7.4-10.4); Platelet Count 129 10^3/uL (130-400); Red Blood Cell Count 4.41 10^6/uL (4.70-6.10); Red Cell Dist. Width 20.4 % (11.5-14.5); White Blood Cell Count 10.1 10^3/uL (4.8-10.8)
[2025-01-11 04:47] LABS: Vancomycin Random 11.4 ug/ml
[2025-01-11 04:54] LABS: Troponin I 0.024 ng/ml
[2025-01-11] MEDS: LASIX 20 MG IV (05:19)
[2025-01-11] MEDS: SOLU-CORTEF 50 MG IV ×4 (05:20→23:21)
[2025-01-11] MEDS: ZOSYN 50 IV ×4 (05:21→23:21)
[2025-01-11] MEDS: SYNTHROID 75 MCG PO (05:21)
[2025-01-11 05:23] LABS: ALT (SGPT) 22 U/L (0-50); AST (SGOT) 43 U/L (17-59); Albumin 2.9 g/dl (3.5-5.0); Alkaline Phosphatase 86 U/L (38-126); Blood Urea Nitrogen 62 mg/dl (9-20); Calcium 7.7 mg/dl (8.4-10.2); Carbon Dioxide 20 mmol/L (22-30); Chloride 108 mmol/L (98-107); Estimated Creatinine Clearance 34 ml/min; Glucose 283 mg/dl (70-99); Potassium 3.7 mmol/L (3.5-5.1); Sodium 137 mmol/L (135-145); Total Bilirubin 0.7 mg/dl (0.2-1.3); Total Protein 5.4 g/dl (6.3-8.2); eGFR 35.66
[2025-01-11 07:31] LABS: Glucose - Point of Care 278 mg/dl (70-99)
[2025-01-11] MEDS: THERAGRAN 1 TABLET PO (08:14)
[2025-01-11] MEDS: FEOSOL 325 MG PO (08:15)
[2025-01-11] MEDS: ASPIR LOW (ENTERIC COATED) 81 MG PO (08:15)
[2025-01-11] MEDS: WELLBUTRIN SR (12 hour sustained release) 150 MG PO ×2 (08:15→19:36)
[2025-01-11] MEDS: COLCHICINE 0.3 MG PO (08:15)
[2025-01-11] MEDS: VIBRAMYCIN 100 MG PO ×2 (08:15→19:36)
[2025-01-11] MEDS: RESTASIS 0.05% OPHTHALMIC EMULSION 1 DROPS BOTH EYES ×2 (08:15→19:36)
[2025-01-11] MEDS: DEPAKOTE (12 HR RELEASE) 250 MG PO ×3 (08:15→21:38)
[2025-01-11] MEDS: ZYLOPRIM 100 MG PO (08:15)
[2025-01-11] MEDS: KCL 20 MEQ PO (08:16)
[2025-01-11] MEDS: HEPARIN 5000 UNITS SC ×2 (08:16→19:36)
--- NOTE | 2025-01-11 08:58 | PTCARENOTE ---
Addendum entered by Cecelia Jasso RN 01/11/25 10:39:
placed on high flow per tool engine lathe set up operator order
Original Note:
report received, assessments per work list. patient states he awoke with chest pain this am but did not report this to staff. patient mildly anxious. denies pain at this time, c/o dyspnea. no cough. monitor nsr. midflow@15 liters. lungs with
diminished coarse breath sounds. dyspnea with minimal exertion. blood sugar elevated this am, finding reported to tool engine lathe set up operator by tiger text. message read. orders pending. ate 100% regular diet. hyperactive bowel sounds. manager transportation planning in. patient
assisted oob to chair, abg drawn by RT, call roldan in reach
--- NOTE | 2025-01-11 09:05 | W.PN.CD ---
Today's Communication / Plan
-
Hold lasix
Cr 1.9 today
Impression / Plan
-
I/P: 79M with NICM, HFmrEF, mild to moderate aortic insufficiency, hypertension, adrenal insufficiency on steroids, and former smoker who presented to the emergency room with complaints of cough
Primary Automobile Carpets Molder: Dr. Lopez
Septic shock - a threat to life
- improved/resolved
Acute hypoxic respiratory failure
- 15L --> Degree of hypoxia seems to be out of proportion to exam he has no LE edema, abdominal bloating and lungs sound mostly clear
- likely other pulmonary process other than CHF
- Chest CT with GGO and trace bilateral pleural effusions
- Cath 12/2022: Top normal to mildly elevated filling pressures (LVEDP = 15 mmHg at 81.5 kg)
HFmrEF, recovered
- LVEF now 60 to 65%, previous 40-45%.
- GDMT on hold in the setting of hypotension
- proBNP 9000, no comparison, currently with ROHITH
- received lasix Cr now 1.9 worsened would recommend holding for now
Chest pain
- trop downtrending despite ongoing CP
- EF now normal
- likely noncardiac CP
Abnormal troponin, type unknown
- nonischemic myocardial injury 2/2 ongoing hypoxic RF and ROHITH
ROHITH on CKD with acidosis
- Creatinine 1.06 on outpatient labs (02/2024); January 11 1.9
- Follow renal function
Adrenal insufficiency, acute on chronic
- Started on stress dose steroids today, 01/10/2025
Aortic insufficiency, mild to moderate, unchanged
Mildly dilated aortic root (4.2 cm)
Hypertension, medical therapy on hold in the setting of hypotension
Melanoma status post resection and treatment with Keytruda
Prediabetes
Bipolar disorder, on bupropion and Depakote
Former tobacco use, continue cessation recommended
Physical Exam
Vital Signs/Labs
Vital Signs
Temp Pulse Resp BP Pulse Ox
97.6 F 70 21 128/62 96
01/11/25 08:00 01/11/25 09:00 01/11/25 09:00 01/11/25 09:00 01/11/25 09:00
01/10/25 01/11/25 01/12/25
06:59 06:59 06:59
Actual Weight 183 lb 10.321 oz 184 lb 8.43 oz
01/11/25 04:20
01/11/25 04:20
PT 17.0 Sec (11.4-14.6) H 01/10/25 09:50
INR 1.36 01/10/25 09:50
APTT 44.7 Sec (23.4-35.0) H 01/10/25 09:50
01/09/25
16:35
Erd-I-Iucasxipvar Pept 9710
LAB Results
01/10/25 01/10/25 01/10/25
09:50 10:00 15:53
Troponin I 0.043 H* Cancelled 0.033
01/10/25 01/11/25
22:00 04:20
Troponin I Cancelled 0.024
Physical Exam
Constitutional: Other (SOB and tachypneic )
EENT: Anicteric
Cardiovascular: Rhythm & rate is regular and Pedal edema is absent
Respiratory: Respiratory effort normal and Lungs clear to auscul.
GI: Soft
Neuro/Psych: AO x 3
Data Reviewed
-
Date of Service: January 11, 2025
Medical Decision Making: Reviewed Test Results
EKG: Tracing Personally Visualized and interpreted (sr)
Echo: Tracing Personally Visualized and interpreted and Report Reviewed by me
Labs: Labs Reviewed by me
[2025-01-11 09:08] LABS: B.E. -3.3 mmol/L; HCO3 19.9 mmol/L (21-28); O2 Saturation % 98.1 % (94-98); PCO2 30 mmHg (35-48); PO2 89 mmHg (83-108); pH 7.43 (7.35-7.45)
[2025-01-11] MEDS: VITAMIN B-12 1000 MCG PO (09:45)
[2025-01-11 11:35] LABS: Glucose - Point of Care 417 mg/dl (70-99)
--- NOTE | 2025-01-11 11:39 | PTCARENOTE ---
patient reassessed. accucheck ''Hi'. stat glucose sent. results pending. buyer broker, pharmacy, and hospitalist pending. patient states he feels less dyspneic with high flow, respiratory rate 18-20. remains oob to chair. spouse updated by this
rfp writer,buyer broker and hospitalist. spouse upset the 'his hearing aides were lost'. found hearing aides in belongings bag and placed in sheep clipper
--- NOTE | 2025-01-11 12:09 | W.PN.INTV ---
Today's Communication / Plan
Recommendations
- Discontinue vancomycin
- Follow-up chest x-ray in a.m.
- Start Lantus 12 units nightly, aspart 4 units with each meal, sliding scale insulin in addition, HbA1c in a.m.
- Switch to high flow nasal cannula, titrate FiO2 to keep saturations above 92%
Assessment
-
Patient is a very pleasant 79-year-old gentleman with history of gout, adrenal insufficiency on chronic hydrocortisone who presented to the hospital with shortness of breath which started around Friday. Patient does not report much cough, sore
throat, runny nose or any expectoration. But he reports that his shortness of breath rather came quickly and has been progressive. He was noted to be hypoxic with O2 saturation in 70s and was on nasal cannula and then later on nonrebreather.
Patient's imaging was suggestive of bilateral infiltrates concerning for cardiogenic versus noncardiogenic edema. He was admitted to the hospital with suspected multifocal pneumonia and was started on broad-spectrum antibiotics. This morning an
MEAL ROOM HAND was called for hypotension and patient has since been on low-dose Levophed infusion. He had a follow-up CT earlier this morning which is suggestive of bilateral interstitial infiltrates concerning for pulmonary edema versus atypical pneumonia
versus ARDS. In view of increased oxygen requirement, hypotension and pressor requirement, patient is being transferred to ICU and sizing machine and drier operator consult is requested for further input.
Patient denies any expectoration, hemoptysis or pleuritic discomfort. No reported sick contacts. No similar episodes in the past. Patient has chronically been on hydrocortisone due to adrenal insufficiency due to Keytruda use about 2 years ago
from melanoma. He has been off this medication since. Recently he was treated with higher dose of prednisone for suspected gout flare and right arm inflammation. He reports in the past also he has required intermittent prednisone bursts for
suspected gout flare versus other rheumatological diagnosis. He follows up with the rheumatology clinic as outpatient. He finished prednisone taper on 01/04 and has currently been on his baseline hydrocortisone.
#1. Acute hypoxic respiratory failure
- Bilateral infiltrates noted on imaging with broad differential diagnosis of cardiogenic versus noncardiogenic edema, both infectious and inflammatory diseases are in differential diagnosis
- Currently on 15 L supplemental oxygen, PO2 of 89 consistent with wide A-a gap
- Switch to high flow nasal cannula
- Patient full code, discussed with him regarding intubation and mechanical ventilation in the event that his respiratory status deteriorates
#2. ?Bilateral interstitial infiltrates
- ?Atypical pneumonia vs Pulmonary edema vs ILD
- Based on exam, pulmonary edema appears to be less likely, hold Lasix
-MRSA screen negative, discontinue vancomycin. Continue Zosyn and doxycycline for now
- Legionella and streptococcal pneumonia antigen negative, influenza A, B screen negative. Blood cultures negative so far. COVID-19 screen negative. Nasal MRSA screen on 01/09 negative
- Negative extended respiratory viral panel, await Fungitell. A-a gradient is increased.
- Await connective tissue panel including rheumatoid factor, REGINA, ANCA, and CRP
- f/u ABG and CXR in AM
- Respiratory status tenuous, patient will not tolerate conscious sedation for bronchoscopy at present.
- Hemoglobin has been stable, diffuse alveolar hemorrhage less likely
- Follow-up chest x-ray appears marginally better
#3. Hypotension with shock
- Currently off Levophed, MAP greater than 65.
- Lactate is reassuring at 0.8
- Continue stress dose steroids and broad-spectrum antibiotics
#4. History of adrenal insufficiency
- Chronically has been on hydrocortisone, continue stress dose for now
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
#5. History of gout,? Rheumatism
- Patient has chronically been on colchicine
- For right arm swelling, has been treated with prednisone taper twice in the last 6 months, he recently finished prednisone on January 04
- Check connective tissue disease panel
- Patient follows up with pressurised container filler as outpatient
#6. Minimal troponin leak
- Suspect it is type II related to hypoxic respiratory failure and hypotension
- Chest pain-free during my evaluation. Cardiac catheterization in 12/2022 showed only minor luminal irregularities in LAD
- Also history of aortic regurgitation and diastolic dysfunction in the past.
- DC Lasix
#7. Chronic kidney disease, stage III/IV
- Chronic metabolic acidosis noted
- Creatinine 1.9 this morning
- Check UA for any hematuria or proteinuria
#8. Hyperglycemia. ?steroid related
- Start Lantus 12 units nightly, aspart 4 units with each meal, continue sliding scale insulin, NPH 12 units x 1 dose now
- Check A1c
Other chronic medical diagnoses:
-HTN
-DM
-h/o Bipolar disease
-Hypothyroidism
-h/o melanoma
-BPH
-Anemia, chronic
DVT prophylaxis, subcu heparin
Critical Care time 48 mins -- The patient is admitted for acute critical illness for the treatment of vital organ failure and/or prevention of further life-threatening conditions. Total care includes time spent in review of history, physical exam,
medications, hemodynamic/ventilator parameters, laboratory data, imaging and discussion with house staff, pharmacy, respiratory therapy, certified caregiver, and nursing.
Data:
CXR 01/2025: New findings suggesting moderate pulmonary edema. Pneumonia not completely excluded. Clinical and laboratory correlation recommended
CT Chest 01/2025: 1. Diffusely bilateral groundglass opacities with scattered areas of interlobular septal thickening and more confluent airspace disease in the posterior aspects of both upper and lower lobes. Trace bilateral pleural effusions and
moderate cardiomegaly. Findings suggestive of pulmonary edema. Additional considerations include ARDS and diffuse alveolar hemorrhage.
ECHO 01/2025: -Left ventricular ejection fraction is 60-65%. Normal regional wall motion.
-Enlarged right ventricular size. Normal right ventricular systolic function.
-Aortic sclerosis without stenosis. Mild to moderate, eccentric aortic
regurgitation.
-Mild tricuspid regurgitation. Estimated pulmonary artery pressure of 40-45
mmHg.
-Mildly dilated aortic root (4.2 cm)
- PASP 40-45 mm with mild TR
ECHO 01/2024: Normal left ventricular chamber size with moderate concentric left ventricular
hypertrophy.
Left ventricular ejection fraction is 40-45% by Leo's method of disc.
Mild, eccentric aortic regurgitation.
Moderate pulmonary hypertension.
Dilated Sinus of Valsalva and ascending aorta.
Compared to the prior on 01/04/2022, there is now stage 2 diastolic dysfunction
and moderate pulmonary hypertension.
[facility] 12/2022: 1. Right dominant circulation with cloacal left main and minor luminal irregularities in the LAD.
2. Top normal to mildly elevated filling pressures (LVEDP = 15 mmHg at 81.5 kg).
3. Mild to moderate aortic valve insufficiency.
4. Top normal to mildly dilated aortic root.
Subjective Dataa
Subjective Data
Date of Service:
Date of Service: January 11, 2025
Subjective:
Patient sitting in bed, on mid flow at 12 to 15 L/min, feels about the same as yesterday
Review of Systems
Genitourinary: Other (No new symptoms reported.)
Objective Data
Data Reviewed
Vital Signs / I&O / Oxygen:
Vital Signs
Temp Pulse Resp BP Pulse Ox
97.6 F 69 18 134/71 98
01/11/25 08:00 01/11/25 11:00 01/11/25 11:00 01/11/25 11:00 01/11/25 11:39
Intake and Output
01/10/25 01/11/25 01/12/25
06:59 06:59 06:59
Intake Total 600 / 600 840 / 840 770 / 770
Output Total 200 / 200 1050 / 1050 250 / 250
Balance 400 / 400 -210 / -210 520 / 520
SaO2 98
Nasal Cannula flow liters per 55
minute
Physical Exam
General: Comfortable
HEENT: Normocephalic
Cardiovascular: S1-S2
Respiratory: Crackles (Bilateral inspiratory rales, from predominantly on lower lobes)
GI: Soft
Neurology: Awake and Alert
Skin: Warm
Labs/Micro/Reports
Lab Data
01/11/25 04:20
Laboratory Results
01/11/25
09:01
pH 7.43
pCO2 30 L
pO2 89
HCO3 19.9 L
O2 Delivery Level
Microbiology
01/10/25 17:35 Nasalpharynx Influenza Type A (PCR) - Final
Not Detected
01/10/25 17:35 Nasalpharynx Influenza Type A (H1) (PCR) - Final
Not Detected
01/10/25 17:35 Nasalpharynx Influenza Type A (H3) (PCR) - Final
Not Detected
01/10/25 17:35 Nasalpharynx Influenza Type B (PCR) - Final
Not Detected
01/10/25 17:35 Nasalpharynx Resp Syncytial Virus Type A (PCR) - Final
Not Detected
01/10/25 17:35 Nasalpharynx Resp Syncytial Virus Type B (PCR) - Final
Not Detected
01/10/25 17:35 Nasalpharynx Adenovirus DNA (PCR) - Final
Not Detected
01/10/25 17:35 Nasalpharynx Human Metapneumovirus (PCR) - Final
Not Detected
01/10/25 17:35 Nasalpharynx Parainfluenza Virus Type 1 (PCR) - Final
Not Detected
01/10/25 17:35 Nasalpharynx Parainfluenza Virus Type 2 (PCR) - Final
Not Detected
01/10/25 17:35 Nasalpharynx Parainfluenza Virus Type 3 (PCR) - Final
Not Detected
01/10/25 17:35 Nasalpharynx Parainfluenza Virus Type 4 - Final
Not Detected
01/10/25 17:35 Nasalpharynx Rhinovirus (PCR) - Final
Not Detected
01/09/25 16:54 Blood/Venous Blood Culture - Preliminary
No Growth in 24 hours- Final report to follow
01/09/25 16:35 Blood/Venous Blood Culture - Preliminary
No Growth in 24 hours- Final report to follow
01/09/25 00:01 Nose Nasal Screen MRSA (PCR) - Final
MRSA not detected - performed by PCR methodology.
01/09/25 23:57 Urine Legionella Urinary Antigen - Final
Negative for Legionella pneumophila Serogroup 1 antigen.
A negative result does not rule out the possiblity of
Legionella infection due to other serogroups or species of
Legionella. Clinical correlation is recommended.
01/09/25 23:57 Urine Streptococcus pneumoniae Antigen (M - Final
Negative for Streptococcus pneumoniae antigen.
A negative result does not exclude infection with
Streptococcus pneumoniae. Clinical correlation is
recommended.
01/09/25 16:54 Nasal Swab Influenza Types A & B (ANGELITA) - Final
Negative for Influenza A & B, NAAT
Negative results must be combined with clinical observations
and patient history.
Nucleic Acid Amplification test (NAAT)performed on the
[employer] platform.
[2025-01-11 12:11] LABS: Glucose 357 mg/dl (70-99)
[2025-01-11] MEDS: TYLENOL 500 MG PO (12:14)
[2025-01-11] MEDS: NOVOLOG FLEXPEN-MODERATE RESISTANCE 9 UNITS SC (12:15)
[2025-01-11] MEDS: NOVOLIN N vial 0.12 UNITS SC (12:58)
--- NOTE | 2025-01-11 14:34 | W.PN.HOSP.TC ---
Today's Communication/Plan
-
dc vanc, cont zosyn and doxy
cont steroids
monitor bmp, may need additional fluid depending on voluem status
cont HFNC for today
CT head unremarkable for CVA , low suspicion
Assessment / Plan
Assessment / Plan
# Hypoxemic respiratory failure/sepsis (fever, tachycardia) secondary to multifocal pneumonia
-possible viral pneumonia
# History of MRSA in sputum
-CT imaging - diffuse ground glass opacities
-Requiring nonrebreather
-Chest x-ray appears to show severe multifocal pneumonia, report pending
- COVID and influenza negative
- Check sputum culture, blood cultures
- Negative strep antigen, Legionella, MRSA
- MRSA neg, DC Vanc
- Zosyn
- doxycycline
- NO DVT on US
-IVF PRN
-Incentive rizwana, acapella
-At this point, will continue hydrocortisone - for indirect pulmonary support
#Septic Shock
-IVF PRn
-cont abx
-MAP goal >65
- Lactate neg
- Wean pressors as needed
-Continue Hydrocortisone for stress dose steroids
#Chest pain
-i suspect pleuritic with pneumonia
-was given 325 asa and nitro with no relief
-Trend Trops until peak
-ECHO with no WMA
#metabolic Acidosis
#ROHITH
-LR bolus 6/2 - improving
-monitor HCO3
# Mild thrombocytopenia secondary to sepsis
- Continue to monitor
Gout
- Continue allopurinol, colchicine
Chronic anemia
Essential hypertension
- Hold Coreg
History of adrenal insufficiency
- Stress dose steroids
Hypothyroidism
- Continue levothyroxine
Melanoma
Bipolar disorder
- Continue bupropion, Depakote
Type 2 diabetes
-start lantus
ROHITH on Chronic kidney disease
-likely pre-renal with shock
- monitor with resuscitation
-IVF PRN
-avoid diuretics at this time, does not appear volume overloaded
Former tobacco use
BPH
- Continue tamsulosin
Full code
DVT prophylaxis�heparin
Regular diet
Total time spent on today's encounter was 51 minutes which included time spent in counseling the patient/family regarding diagnosis and treatment plan as listed above, goals of care, and symptom management. Case was discussed with nursing staff,
specialists, and care coordinators/case management. All labs and imaging personally reviewed by me. Remainder the time spent in detailed review of previous records, lab data, imaging, and other medical provider documentation.
Anticipated Discharge: > 48 hours
Subjective/Interval History
-
Date of Service: January 11, 2025
on HFNC
Objective Data
-
Labs:
Laboratory Results
01/11/25 01/11/25 01/11/25
04:20 09:01 11:33
WBC 10.1
Hgb 11.4 L
Hct 34.3 L
Plt Count 129 L D
HCO3 19.9 L
Sodium 137
Potassium 3.7
Chloride 108 H
Carbon Dioxide 20 L
BUN 62 H
Creatinine 1.9 H
Glucose 283 H 357 H
Calcium 7.7 L
Total Bilirubin 0.7
AST 43
ALT 22
Alkaline Phosphatase 86
Vital Signs:
Vital Signs
Temp Pulse Resp BP Pulse Ox
97.7 F 69 18 134/71 98
01/11/25 12:00 01/11/25 11:00 01/11/25 11:00 01/11/25 11:00 01/11/25 11:39
I&O
01/10/25 01/11/25 01/12/25
06:59 06:59 06:59
Intake Total 600 / 600 840 / 840 770 / 770
Output Total 200 / 200 1050 / 1050 250 / 250
Balance 400 / 400 -210 / -210 520 / 520
Review of Systems
-
History Source: Patient
All other systems: Not reviewed unless documented
Physical Exam
-
General: Well Developed, Well Nourished and No Apparent Distress
HEENT: Normocephalic and Atraumatic
Respiratory: Rhonchi (Bilaterally); Negative Wheezes
Cardiac: Regular Rhythm and S1/S2; Negative Murmur
GI: Soft, Nontender, Nondistended and Normal Bowel Sounds
Musculoskeletal: No Clubbing, No Cyanosis, No Edema and Other (joints improved)
Neuro: Awake
Data Reviewed
-
Diagnostic Radiology: Report Reviewed by me
CT Scan: Report Reviewed by me
Labs: Labs Reviewed by me
[2025-01-11] MEDS: ROXICODONE 5 MG PO (15:17)
--- NOTE | 2025-01-11 15:20 | PTCARENOTE ---
patient taken and returned from CT scan. c/o right sided chest discomfort unrelieved with Tylenol. reassessed. information management manager updated. orders received. medicated with oxycodone. call roldan in reach
--- NOTE | 2025-01-11 15:49 | CM ---
IV/Levophed, IV/AB, IV/Steroids. Discharge POC: TBD with medical progression.
[2025-01-11 17:14] LABS: Glucose - Point of Care 267 mg/dl (70-99)
[2025-01-11] MEDS: LIPITOR 10 MG PO (17:28)
[2025-01-11] MEDS: NOVOLOG FLEXPEN 4 UNITS SC (17:33)
[2025-01-11] MEDS: NOVOLOG FLEXPEN-MODERATE RESISTANCE 5 UNITS SC (17:33)
--- NOTE | 2025-01-11 20:00 | PTCARENOTE ---
Received patient AAOx3, in chair, following commands, denying pain. [place] b/l, hearing aids in. Hand tremor present, OOB to chair, resting comfortably. NS 60s, BP stable 120s/60s, normothermic. Palpable radial and pedal pulses b/l, trace LE edema. 99%
on HFNC 45 L, 70%. Lung sounds diminished and coarse in the bases. Abdomen soft, round, hyperactive BS, last BM today. Urinal to void, elkin urine. Protective foam on sacrum and duoderm on forehead. PIVs patent, WNL. Call roldan within reach.
[2025-01-11 21:29] LABS: Glucose - Point of Care 320 mg/dl (70-99)
[2025-01-11] MEDS: FLOMAX 0.4 MG PO (21:38)
[2025-01-11] MEDS: LANTUS 0.12 UNITS SC (21:38)
[2025-01-11] MEDS: NOVOLOG FLEXPEN 7 UNITS SC (21:38)
[2025-01-12] VITALS (18 sets, daily range): BP systolic 139–173; BP diastolic 67–86; PULSE 2–52; BMI 25.9
--- NOTE | 2025-01-12 | PTCARENOTE ---
Patient brushed teeth, assisted back to bed. On bipap, blankets given. Otherwise patient assessment unchanged from previous, call roldan within reach.
--- NOTE | 2025-01-12 04:00 | PTCARENOTE ---
Patient assessment unchanged from previous, call roldan within reach.
[2025-01-12] MEDS: SYNTHROID 75 MCG PO (05:51)
[2025-01-12] MEDS: ZOSYN 50 IV (05:51)
[2025-01-12] MEDS: SOLU-CORTEF 50 MG IV ×3 (05:51→17:46)
[2025-01-12 06:16] LABS: Hematocrit 35.7 % (39.0-52.0); Hemoglobin 11.8 g/dL (13.0-18.0); Mean Corp Hgb Conc. 33.1 g/dL (33.0-37.0); Mean Corpuscular Hgb 25.8 pg (27.0-31.0); Mean Corpuscular Volume 78.1 fL (80.0-94.0); Mean Platelet Volume 10.2 fL (7.4-10.4); Platelet Count 155 10^3/uL (130-400); Red Blood Cell Count 4.57 10^6/uL (4.70-6.10); Red Cell Dist. Width 20.7 % (11.5-14.5); White Blood Cell Count 13.3 10^3/uL (4.8-10.8)
[2025-01-12 06:47] LABS: ALT (SGPT) 21 U/L (0-50); AST (SGOT) 29 U/L (17-59); Albumin 3.1 g/dl (3.5-5.0); Alkaline Phosphatase 90 U/L (38-126); Blood Urea Nitrogen 75 mg/dl (9-20); Calcium 8.4 mg/dl (8.4-10.2); Carbon Dioxide 19 mmol/L (22-30); Chloride 109 mmol/L (98-107); Estimated Creatinine Clearance 34 ml/min; Glucose 194 mg/dl (70-99); Potassium 3.8 mmol/L (3.5-5.1); Sodium 138 mmol/L (135-145); Total Bilirubin 0.5 mg/dl (0.2-1.3); Total Protein 5.5 g/dl (6.3-8.2); eGFR 35.66
[2025-01-12 07:24] LABS: Glucose - Point of Care 175 mg/dl (70-99)
[2025-01-12] MEDS: NOVOLOG FLEXPEN-MODERATE RESISTANCE 1 UNITS SC (08:00)
[2025-01-12] MEDS: NOVOLOG FLEXPEN 4 UNITS SC (08:03)
[2025-01-12] MEDS: RESTASIS 0.05% OPHTHALMIC EMULSION 1 DROPS BOTH EYES ×2 (08:03→20:02)
[2025-01-12] MEDS: VITAMIN B-12 1000 MCG PO (08:03)
[2025-01-12] MEDS: ASPIR LOW (ENTERIC COATED) 81 MG PO (08:04)
[2025-01-12] MEDS: DEPAKOTE (12 HR RELEASE) 250 MG PO ×3 (08:04→21:57)
[2025-01-12] MEDS: VIBRAMYCIN 100 MG PO ×2 (08:04→20:02)
[2025-01-12] MEDS: COLCHICINE 0.3 MG PO (08:04)
[2025-01-12] MEDS: THERAGRAN 1 TABLET PO (08:04)
[2025-01-12] MEDS: FEOSOL 325 MG PO (08:05)
[2025-01-12] MEDS: WELLBUTRIN SR (12 hour sustained release) 150 MG PO ×2 (08:05→20:02)
[2025-01-12] MEDS: ZYLOPRIM 100 MG PO (08:05)
[2025-01-12] MEDS: HEPARIN 5000 UNITS SC ×2 (08:05→20:01)
--- NOTE | 2025-01-12 08:36 | W.PN.CD ---
Today's Communication / Plan
-
Resume 1/2 dose home Carvedilol
Continue to hold Lasix
Wean FiO2 as tolerated
Impression / Plan
-
I/P: 79M with NICM, HFmrEF, mild to moderate aortic insufficiency, hypertension, adrenal insufficiency on steroids, and former smoker who presented to the emergency room with complaints of cough, found to have hypoxic respiratory failure and septic
shock.
Primary Glue Line Operator: Dr. Lopez
Acute hypoxic respiratory failure
- Diagnosis is a threat to life. He continues to require HFNC.
- CT chest with bilateral infiltrates. Concern for atypical pneumonia vs ILD vs less likely pulmonary edema
- Cath 12/2022: Top normal to mildly elevated filling pressures (LVEDP = 15 mmHg at 81.5 kg)
- Pulmonary following. Continue abx and wean FiO2 as tolerated
- Hold Lasix. Pulm edema is likely not a large contributing factor. He developed ROHITH and increased BUN with diuresis.
HFmrEF, recovered
- LVEF now 60 to 65%, previous 40-45%.
- Resume home Carvedilol at 1/2 dose now that BPs have recovered
- Resume additional GDMT over next few days
- received lasix Cr now 1.9 worsened would recommend holding for now
NSVT
- 8 beat run NSVT 6/3 PM
- Resume Carvedilol as above
- Monitor electrolytes
ROHITH on CKD
- Creatinine 1.06 on outpatient labs (02/2024)
- Follow renal function with holding diuretics
Septic shock - a threat to life
- improved/resolved
Chest pain
- trop downtrending despite ongoing CP
- EF now normal
- likely noncardiac CP
Abnormal troponin
- nonischemic myocardial injury 2/2 ongoing hypoxic RF and ROHITH
Adrenal insufficiency, acute on chronic
- Started on stress dose steroids today, 01/10/2025
Aortic insufficiency, mild to moderate, unchanged
Mildly dilated aortic root (4.2 cm)
Hypertension, medical therapy on hold in the setting of hypotension
Melanoma status post resection and treatment with Keytruda
Prediabetes
Bipolar disorder, on bupropion and Depakote
Former tobacco use, continue cessation recommended
Subjective: Breathing feels improved. He is able to sit up in chair.
Telemetry: NSR, 8 beats NSVT
Physical Exam
Vital Signs/Labs
Vital Signs
Temp Pulse Resp BP Pulse Ox
97.4 F 80 16 155/81 99
01/12/25 08:00 01/12/25 08:00 01/12/25 08:00 01/12/25 08:00 01/12/25 08:21
01/11/25 01/12/25 01/13/25
06:59 06:59 06:59
Actual Weight 184 lb 8.43 oz 185 lb 10.067 oz
01/12/25 06:00
01/12/25 06:00
PT 17.0 Sec (11.4-14.6) H 01/10/25 09:50
INR 1.36 01/10/25 09:50
APTT 44.7 Sec (23.4-35.0) H 01/10/25 09:50
01/09/25
16:35
[id number] Pept 9710
LAB Results
01/10/25 01/10/25 01/10/25
09:50 10:00 15:53
Troponin I 0.043 H* Cancelled 0.033
01/10/25 01/11/25
22:00 04:20
Troponin I Cancelled 0.024
Physical Exam
Constitutional: No acute distress and Comfortable
Cardiovascular: Rhythm & rate is regular, Pedal edema is absent, S1S2 is normal and Murmur/rub/gallop absent
Respiratory: Respiratory effort normal and Crackles Present (R base)
Neuro/Psych: AO x 3
Data Reviewed
-
Date of Service: January 12, 2025
Medical Decision Making: Reviewed Test Results, Independent Historian Assessment, Test Interpretation and Review of Case with other Provider
EKG: Tracing Personally Visualized and interpreted
Echo: Report Reviewed by me
X-Ray/CT/US/MRI/NUC/PET: Image Personally Visualized and interpreted
Labs: Labs Reviewed by me
[2025-01-12 08:45] LABS: Glycohemoglobin (HgbA1c) 6.4 % (4.0-5.6)
--- NOTE | 2025-01-12 09:00 | PTCARENOTE ---
Rec'd pt at 0730 awake alert and oriented resting in bed- overall states he feels better. Denies pain or discomfort. Speech is clear. Denies dizziness or headache. Does have hand/arm tremors at rest and with activity. ARMANDO. Skin is pale pink wm and
dry. Does have a duoderm on his forehead and sacral foam. Respirs are shallow does get PIMENTEL but at rest in non-labored. BS are sl decreased throughout with few R base crackles. Rec'd pt on High FLow 45L/70% with sats of 100%. Changed over at 0820 to
40L/50% High flow with sats of 96%. Tolerated getting oob without feeling overly short of breath and sats after sitting down for a minute were 97%. Coughs an occasional non-prod cough.Monitor SR with sl long QT 051. + pulses. No edema. VS as
documented. Denies chest pain. ABd is soft with + BS. Denies nausea. Excellent appetite for breakfast. Assisted on to the BSC for small amt of formed brown stool. Voiding elkin/yellow urine in the urinal. Capped ints intact L FA and LAC sites wnl.
Pt able to held with repositioning. Assisted oob to the Chair with the use of a rolling walker. Gait is weak but able to bear wt. Complete CHG bath given. Pt did own oral care. Currently resting in the chair. Call roldan in reach. Plan of care
reviewed.
--- NOTE | 2025-01-12 11:20 | PTCARENOTE ---
Remains sitting oob in the chair. No complaints offered. Placed at 1110 on 15 L midflow with sats of 96%. Denies shortness of breath. No other changes.
[2025-01-12 11:51] LABS: Glucose - Point of Care 246 mg/dl (70-99)
[2025-01-12] MEDS: ROXICODONE 5 MG PO ×2 (11:52→20:10)
[2025-01-12] MEDS: COREG 6.25 MG PO ×2 (11:53→20:02)
[2025-01-12] MEDS: FLUSH (NSS) 1 FLUSH IV ×3 (11:54→17:48)
[2025-01-12] MEDS: NOVOLOG FLEXPEN-MODERATE RESISTANCE 3 UNITS SC (12:12)
[2025-01-12] MEDS: NOVOLOG FLEXPEN 5 UNITS SC ×2 (12:13→17:49)
--- NOTE | 2025-01-12 12:15 | PTCARENOTE ---
Remains sitting oob in the chair. States he feels better sitting up. C/O 7-8 R lower chest discomfort that he describes as intermittent and much like yesterdays discomfort. Medicated with Roxicodone 5 mg po at 1155. No other changes. Voiding yellow
urine in the urinal. Tolerating midlfow
--- NOTE | 2025-01-12 13:00 | PTCARENOTE ---
Currently on 12L midlflow with sats of 96%. Good appetite for lunch.
--- NOTE | 2025-01-12 13:18 | W.PN.INTV ---
Today's Communication / Plan
Recommendations
- Discontinue Zosyn, start Rocephin
- Continue doxycycline, follow-up on cultures and lab work including Fungitell
- Increase Lantus to 15 units nightly, increase aspart to 5 units 3 times daily AC
- Patient transition to mid flow O2 cannula
- Transfer to IMU
- Pulmonary service will continue to follow the patient
- BNP in a.m., anticipate gentle diuresis to be initiated on 01/13 if renal function stable
Assessment
-
Patient is a very pleasant 79-year-old gentleman with history of gout, adrenal insufficiency on chronic hydrocortisone who presented to the hospital with shortness of breath which started around Friday. Patient does not report much cough, sore
throat, runny nose or any expectoration. But he reports that his shortness of breath rather came quickly and has been progressive. He was noted to be hypoxic with O2 saturation in 70s and was on nasal cannula and then later on nonrebreather.
Patient's imaging was suggestive of bilateral infiltrates concerning for cardiogenic versus noncardiogenic edema. He was admitted to the hospital with suspected multifocal pneumonia and was started on broad-spectrum antibiotics. This morning an
UNDERPRESSER HAND was called for hypotension and patient has since been on low-dose Levophed infusion. He had a follow-up CT earlier this morning which is suggestive of bilateral interstitial infiltrates concerning for pulmonary edema versus atypical pneumonia
versus ARDS. In view of increased oxygen requirement, hypotension and pressor requirement, patient is being transferred to ICU and product strategy director consult is requested for further input.
Patient denies any expectoration, hemoptysis or pleuritic discomfort. No reported sick contacts. No similar episodes in the past. Patient has chronically been on hydrocortisone due to adrenal insufficiency due to Keytruda use about 2 years ago
from melanoma. He has been off this medication since. Recently he was treated with higher dose of prednisone for suspected gout flare and right arm inflammation. He reports in the past also he has required intermittent prednisone bursts for
suspected gout flare versus other rheumatological diagnosis. He follows up with the rheumatology clinic as outpatient. He finished prednisone taper on 01/04 and has currently been on his baseline hydrocortisone.
01/12: Patient continues to be afebrile, no cough, dyspnea improving. Not on any drips. Currently down to mid flow, saturating 95%. No expectoration or fever.
#1. Acute hypoxic respiratory failure
- Bilateral infiltrates noted on imaging with broad differential diagnosis of cardiogenic versus noncardiogenic edema, both infectious and inflammatory diseases are in differential diagnosis
- Clinically improving, discontinue high flow nasal cannula, transition to mid flow
- In view of continued clinical improvement, transfer to IMU
#2. ?Bilateral interstitial infiltrates
- ?Atypical pneumonia vs Pulmonary edema vs ILD
- MRSA screen negative, discontinued vancomycin. Since cultures have been staying negative, discontinue Zosyn and start Rocephin. Continue doxycycline for now
- Legionella and streptococcal pneumonia antigen negative, influenza A, B screen negative. Blood cultures negative so far. COVID-19 screen negative. Nasal MRSA screen on 01/09 negative
- Negative extended respiratory viral panel, await Fungitell.
- Await connective tissue panel including rheumatoid factor, REGINA, ANCA, and CRP. So far workup negative
- Chest x-ray overall shows mild improvement compared to 48 hours ago
- Hemoglobin has been stable, diffuse alveolar hemorrhage less likely
#3. Hypotension with shock
- Resolved, currently off Levophed, MAP greater than 65.
- Lactate is reassuring at 0.8
- Continue stress dose steroids and antibiotics
#4. History of adrenal insufficiency
- Chronically has been on hydrocortisone, continue stress dose for now
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
#5. History of gout,? Rheumatism
- Patient has chronically been on colchicine
- For right arm swelling, has been treated with prednisone taper twice in the last 6 months, he recently finished prednisone on January 04
- Checking connective tissue disease panel
- Patient follows up with deputy program manager as outpatient
#6. Minimal troponin leak
- Suspect it is type II related to hypoxic respiratory failure and hypotension
- Chest pain-free during my evaluation. Cardiac catheterization in 12/2022 showed only minor luminal irregularities in LAD
- Also history of aortic regurgitation and diastolic dysfunction in the past
- Lasix continues to be on hold
#7. Chronic kidney disease, stage III/IV
- Chronic metabolic acidosis noted
- Creatinine 1.9 this morning
- Check UA for any hematuria or proteinuria
#8. Hyperglycemia. ?steroid related
- Increase Lantus 15 units nightly, aspart 5 units with each meal, continue sliding scale insulin, NPH 12 units x 1 dose now
- Check A1c
Other chronic medical diagnoses:
-HTN
-DM
-h/o Bipolar disease
-Hypothyroidism
-h/o melanoma
-BPH
-Anemia, chronic
DVT prophylaxis, subcu heparin
Critical Care time 45 mins -- The patient is admitted for acute critical illness for the treatment of vital organ failure and/or prevention of further life-threatening conditions. Total care includes time spent in review of history, physical exam,
medications, hemodynamic/ventilator parameters, laboratory data, imaging and discussion with house staff, pharmacy, respiratory therapy, actuarial technician, and nursing.
Data:
CXR 01/2025: New findings suggesting moderate pulmonary edema. Pneumonia not completely excluded. Clinical and laboratory correlation recommended
CT Chest 01/2025: 1. Diffusely bilateral groundglass opacities with scattered areas of interlobular septal thickening and more confluent airspace disease in the posterior aspects of both upper and lower lobes. Trace bilateral pleural effusions and
moderate cardiomegaly. Findings suggestive of pulmonary edema. Additional considerations include ARDS and diffuse alveolar hemorrhage.
ECHO 01/2025: -Left ventricular ejection fraction is 60-65%. Normal regional wall motion.
-Enlarged right ventricular size. Normal right ventricular systolic function.
-Aortic sclerosis without stenosis. Mild to moderate, eccentric aortic
regurgitation.
-Mild tricuspid regurgitation. Estimated pulmonary artery pressure of 40-45
mmHg.
-Mildly dilated aortic root (4.2 cm)
- PASP 40-45 mm with mild TR
ECHO 01/2024: Normal left ventricular chamber size with moderate concentric left ventricular
hypertrophy.
Left ventricular ejection fraction is 40-45% by Leo's method of disc.
Mild, eccentric aortic regurgitation.
Moderate pulmonary hypertension.
Dilated Sinus of Valsalva and ascending aorta.
Compared to the prior on 01/04/2022, there is now stage 2 diastolic dysfunction
and moderate pulmonary hypertension.
[facility] 12/2022: 1. Right dominant circulation with cloacal left main and minor luminal irregularities in the LAD.
2. Top normal to mildly elevated filling pressures (LVEDP = 15 mmHg at 81.5 kg).
3. Mild to moderate aortic valve insufficiency.
4. Top normal to mildly dilated aortic root.
Subjective Dataa
Subjective Data
Date of Service:
Date of Service: January 12, 2025
Subjective:
Patient comfortably sitting in bed, no acute distress, now transition to mid flow
Review of Systems
Genitourinary: Other (All 14 systems reviewed and negative except as stated above in the history of present illness.)
Objective Data
Data Reviewed
Vital Signs / I&O / Oxygen:
Vital Signs
Temp Pulse Resp BP Pulse Ox
97.4 F 58 22 155/75 99
01/12/25 12:25 01/12/25 11:53 01/12/25 08:00 01/12/25 11:53 01/12/25 08:21
Intake and Output
01/11/25 01/12/25 01/13/25
06:59 06:59 06:59
Intake Total 840 / 840 1160 / 1160 500 / 500
Output Total 1050 / 1050 1175 / 1175 100 / 100
Balance -210 / -210 -15 / -15 400 / 400
SaO2 99
Nasal Cannula flow liters per 40
minute
Physical Exam
General: Comfortable
HEENT: Normocephalic
Cardiovascular: S1-S2
Respiratory: Crackles (Bilateral inspiratory rales, from predominantly on lower lobes)
GI: Soft
Neurology: Awake and Alert
Skin: Warm
Labs/Micro/Reports
Lab Data
01/12/25 06:00
01/12/25 06:00
Microbiology
01/09/25 16:54 Blood/Venous Blood Culture - Preliminary
No Growth in 48 hours- Final report to follow
01/09/25 16:35 Blood/Venous Blood Culture - Preliminary
No Growth in 48 hours- Final report to follow
01/10/25 17:35 Nasalpharynx Influenza Type A (PCR) - Final
Not Detected
01/10/25 17:35 Nasalpharynx Influenza Type A (H1) (PCR) - Final
Not Detected
01/10/25 17:35 Nasalpharynx Influenza Type A (H3) (PCR) - Final
Not Detected
01/10/25 17:35 Nasalpharynx Influenza Type B (PCR) - Final
Not Detected
01/10/25 17:35 Nasalpharynx Resp Syncytial Virus Type A (PCR) - Final
Not Detected
01/10/25 17:35 Nasalpharynx Resp Syncytial Virus Type B (PCR) - Final
Not Detected
01/10/25 17:35 Nasalpharynx Adenovirus DNA (PCR) - Final
Not Detected
01/10/25 17:35 Nasalpharynx Human Metapneumovirus (PCR) - Final
Not Detected
01/10/25 17:35 Nasalpharynx Parainfluenza Virus Type 1 (PCR) - Final
Not Detected
01/10/25 17:35 Nasalpharynx Parainfluenza Virus Type 2 (PCR) - Final
Not Detected
01/10/25 17:35 Nasalpharynx Parainfluenza Virus Type 3 (PCR) - Final
Not Detected
01/10/25 17:35 Nasalpharynx Parainfluenza Virus Type 4 - Final
Not Detected
01/10/25 17:35 Nasalpharynx Rhinovirus (PCR) - Final
Not Detected
01/09/25 00:01 Nose Nasal Screen MRSA (PCR) - Final
MRSA not detected - performed by PCR methodology.
01/09/25 23:57 Urine Legionella Urinary Antigen - Final
Negative for Legionella pneumophila Serogroup 1 antigen.
A negative result does not rule out the possiblity of
Legionella infection due to other serogroups or species of
Legionella. Clinical correlation is recommended.
01/09/25 23:57 Urine Streptococcus pneumoniae Antigen (M - Final
Negative for Streptococcus pneumoniae antigen.
A negative result does not exclude infection with
Streptococcus pneumoniae. Clinical correlation is
recommended.
01/09/25 16:54 Nasal Swab Influenza Types A & B (ANGELITA) - Final
Negative for Influenza A & B, NAAT
Negative results must be combined with clinical observations
and patient history.
Nucleic Acid Amplification test (NAAT)performed on the
[employer] platform.
[2025-01-12] MEDS: ROCEPHIN 1000 MG IV (13:33)
[2025-01-12] MEDS: STERILE WATER FOR INJECTION 10 ML IV (13:33)
--- NOTE | 2025-01-12 14:30 | PTCARENOTE ---
Decreased to 10L midlfow with sats of 96%. Does still admit to some intermittent R lower chest discomfort but does say it is not constant and that the earlier Roxicodone helped a little. Assisted on to the BSC for yellow urine and small amt of
formed brown stool. Currently resting back in the recliner chair. Call roldan in reach.
--- NOTE | 2025-01-12 14:30 | W.PN.HOSP.TC ---
Today's Communication/Plan
-
Wean off High Flow as tolerated
Switch to ceftriaxone
doxycycline
Incentive irzwana, acapella
At this point, will continue hydrocortisone
anticipate diuretics in the next 24- 48 hours
Resume low dose BB
Assessment / Plan
Assessment / Plan
# Hypoxemic respiratory failure/sepsis (fever, tachycardia) secondary to atypical multifocal pneumonia
-possible viral pneumonia
# History of MRSA in sputum
-CT imaging - diffuse ground glass opacities
-Requiring nonrebreather
-Chest x-ray appears to show severe multifocal pneumonia, report pending
- COVID and influenza negative
- Check sputum culture, blood cultures
- Negative strep antigen, Legionella, MRSA
-Attempt to wean HFNC today; Goal o2>92%
- MRSA neg, DC Vanc
- Switch to ceftriaxone
- doxycycline
- NO DVT on US
-IVF PRN
-Incentive rizwana, acapella
-At this point, will continue hydrocortisone
-anticipate diuretics in the next 24- 48 hours
#Septic Shock, resolved
-IVF PRn
-cont abx
-MAP goal >65
- Lactate neg
- Weaned pressors
-Continue Hydrocortisone for stress dose steroids,
#Chest pain
-i suspect pleuritic with pneumonia
-was given 325 asa and nitro with no relief
-Trend Trops until peak
-ECHO with no WMA
#metabolic Acidosis
#ROHITH
-monitor with resuscitation
-monitor HCO3
-Cont to hold diuretics
# Mild thrombocytopenia secondary to sepsis
- Continue to monitor
Gout
- Continue allopurinol, colchicine
Chronic anemia
Essential hypertension
NSVT
- resume low dose Coreg
History of adrenal insufficiency
- Stress dose steroids
Hypothyroidism
- Continue levothyroxine
Melanoma
Bipolar disorder
- Continue bupropion, Depakote
Type 2 diabetes
-start lantus
-a1c 6.4
ROHITH on Chronic kidney disease
-likely pre-renal with shock
- monitor with resuscitation
-IVF PRN
-avoid diuretics at this time, does not appear volume overloaded
Former tobacco use
BPH
- Continue tamsulosin
Full code
DVT prophylaxis�heparin
Regular diet
Total time spent on today's encounter was 53 minutes which included time spent in counseling the patient/family regarding diagnosis and treatment plan as listed above, goals of care, and symptom management. Case was discussed with nursing staff,
specialists, and care coordinators/case management. All labs and imaging personally reviewed by me. Remainder the time spent in detailed review of previous records, lab data, imaging, and other medical provider documentation.
Anticipated Discharge: > 48 hours
Subjective/Interval History
-
Date of Service: January 12, 2025
appears to have clinically improved
Objective Data
-
Labs:
Laboratory Results
01/12/25
06:00
WBC 13.3 H
Hgb 11.8 L
Hct 35.7 L
Plt Count 155 D
Sodium 138
Potassium 3.8
Chloride 109 H
Carbon Dioxide 19 L
BUN 75 H
Creatinine 1.9 H
Glucose 194 H
Calcium 8.4
Total Bilirubin 0.5
AST 29
ALT 21
Alkaline Phosphatase 90
Vital Signs:
Vital Signs
Temp Pulse Resp BP Pulse Ox
97.4 F 58 22 155/75 99
01/12/25 12:25 01/12/25 11:53 01/12/25 08:00 01/12/25 11:53 01/12/25 08:21
I&O
01/11/25 01/12/2501/13/25
06:59 06:59 06:59
Intake Total 840 / 840 1160 / 1160 500 / 500
Output Total 1050 / 1050 1175 / 1175 100 / 100
Balance -210 / -210 -15 / -15 400 / 400
Review of Systems
-
History Source: Patient
All other systems: Not reviewed unless documented
Data Reviewed
-
Diagnostic Radiology: Report Reviewed by me
CT Scan: Report Reviewed by me
Labs: Labs Reviewed by me
--- NOTE | 2025-01-12 16:04 | CM ---
IV/AB, IV/Steroids, Wean Hi Flow. Discharge POC: TBD with medical progression. Await PT evaluation when able.
[2025-01-12] MEDS: TYLENOL 500 MG PO (16:52)
[2025-01-12 16:57] LABS: Glucose - Point of Care 256 mg/dl (70-99)
--- NOTE | 2025-01-12 17:00 | PTCARENOTE ---
Remains sitting oob in the chair. Wants to eat dinner oob. Does still c/o the intermittent R chest discomfort- describes it as a 8/10 when it is present. Not due for Roxicodone yet- Medicated with Tylenol 500 mg PO[address] No other changes. Dr. Cummings
updated earlier on pts BP as it has been running in the 150-170's syst. O2 sats on 10L midlfow were 97%- decreased currently to 8L midflow with sats of 94%
--- NOTE | 2025-01-12 17:00 | PTCARENOTE ---
Remains sitting oob in the chair. Wants to eat dinner oob.Pt reassessed. Does still c/o the intermittent R chest discomfort- describes it as a 8/10 when it is present and at time describes it as somewhat positional. Not due for Roxicodone yet-
Medicated with Tylenol 500 mg PO. No other changes. Dr. Cummings updated earlier on pts BP as it has been running in the 150-170's syst. O2 sats on 10L midlfow were 97%- decreased currently to 8L midflow with sats of 94%. Call roldan in reach.
[2025-01-12] MEDS: NOVOLOG FLEXPEN-MODERATE RESISTANCE 5 UNITS SC (17:49)
[2025-01-12] MEDS: LIPITOR 10 MG PO (17:50)
--- NOTE | 2025-01-12 18:14 | PTCARENOTE ---
Good appetite for dinner. States currently post Tylenol R chest soreness is gone. Pt for transfer to [facility]- Report called and will transfer pt once he is finished eating.
--- NOTE | 2025-01-12 18:43 | PTCARENOTE ---
Good appetite for dinner. Pt assisted back to bed then transferred to U 3341. No changes in assessment. Sats on 8L midflow are 94-96%. Winded with extertion but settles once resting.
--- NOTE | 2025-01-12 18:55 | PTCARENOTE ---
Patient arrived to IMU from ICU. Verbal report received from Vinita LANDMEN. AOx3. [place] with a hearing aid in the R ear. 8L midflow with SpO2 94-95%. VSS. Call roldan within reach, bed in lowest position, and bed of wheels locked.
--- NOTE | 2025-01-12 20:43 | PTCARENOTE ---
Caring for pt overnight. Aaox3, pleasant. Still c/o R sided CP, prn pain meds given. NSR/SB on monitor. Remains on 8LMF. No assessment changes. No other complaints. Will monitor.
[2025-01-12 21:38] LABS: Glucose - Point of Care 304 mg/dl (70-99)
[2025-01-12] MEDS: LANTUS 0.15 UNITS SC (21:57)
[2025-01-12] MEDS: FLOMAX 0.4 MG PO (21:57)
[2025-01-13] VITALS (11 sets, daily range): BP systolic 148–168; BP diastolic 70–83
[2025-01-13] MEDS: SOLU-CORTEF 50 MG IV ×4 (00:59→17:04)
[2025-01-13] MEDS: ROXICODONE 5 MG PO (02:52)
[2025-01-13] MEDS: SYNTHROID 75 MCG PO (05:43)
[2025-01-13 06:26] LABS: Hematocrit 37.8 % (39.0-52.0); Hemoglobin 12.1 g/dL (13.0-18.0); Mean Corpuscular Hgb 25.7 pg (27.0-31.0); Mean Corpuscular Volume 80.4 fL (80.0-94.0); Mean Platelet Volume 9.9 fL (7.4-10.4); Platelet Count 195 10^3/uL (130-400); Red Cell Dist. Width 21.2 % (11.5-14.5); White Blood Cell Count 11.6 10^3/uL (4.8-10.8)
[2025-01-13] MEDS: TYLENOL 650 MG PO ×2 (06:26→18:06)
[2025-01-13] MEDS: LIDOCAINE 4% PATCH 1 PATCH TOPICAL ×2 (06:26→07:57)
[2025-01-13 06:40] LABS: ALT (SGPT) 21 U/L (0-50); AST (SGOT) 26 U/L (17-59); Albumin 3.2 g/dl (3.5-5.0); Alkaline Phosphatase 89 U/L (38-126); Blood Urea Nitrogen 67 mg/dl (9-20); Calcium 8.9 mg/dl (8.4-10.2); Carbon Dioxide 26 mmol/L (22-30); Chloride 109 mmol/L (98-107); Estimated Creatinine Clearance 43 ml/min; Glucose 201 mg/dl (70-99); Sodium 141 mmol/L (135-145); Total Bilirubin 0.4 mg/dl (0.2-1.3); Total Protein 5.7 g/dl (6.3-8.2); eGFR 47.36
[2025-01-13 06:48] LABS: NT-proBNP 8320 pg/ml
[2025-01-13 07:33] LABS: Glucose - Point of Care 187 mg/dl (70-99)
[2025-01-13 07:37] LABS: CCP Antibody IgG/IgA 2 Units (0-19)
[2025-01-13] MEDS: NOVOLOG FLEXPEN-MODERATE RESISTANCE 1 UNITS SC (07:54)
[2025-01-13] MEDS: ASPIR LOW (ENTERIC COATED) 81 MG PO (07:55)
[2025-01-13] MEDS: COLCHICINE 0.3 MG PO (07:55)
[2025-01-13] MEDS: FEOSOL 325 MG PO (07:55)
[2025-01-13] MEDS: VIBRAMYCIN 100 MG PO ×2 (07:55→20:28)
[2025-01-13] MEDS: DEPAKOTE (12 HR RELEASE) 250 MG PO ×3 (07:55→22:25)
[2025-01-13] MEDS: COREG 6.25 MG PO ×2 (07:55→20:25)
[2025-01-13] MEDS: NOVOLOG FLEXPEN 5 UNITS SC ×3 (07:55→17:05)
[2025-01-13] MEDS: VITAMIN B-12 1000 MCG PO (07:56)
[2025-01-13] MEDS: HEPARIN 5000 UNITS SC ×2 (07:56→20:29)
[2025-01-13] MEDS: WELLBUTRIN SR (12 hour sustained release) 150 MG PO ×2 (07:56→20:25)
[2025-01-13] MEDS: THERAGRAN 1 TABLET PO (07:56)
[2025-01-13] MEDS: RESTASIS 0.05% OPHTHALMIC EMULSION 1 DROPS BOTH EYES ×2 (07:56→20:28)
[2025-01-13] MEDS: ZYLOPRIM 100 MG PO (07:56)
--- NOTE | 2025-01-13 08:06 | W.PN.CD ---
Today's Communication / Plan
-
Overall condition is improving.
-Wean O2 as tolerated
ROHITH improving with creatinine 1.9 down to 1.5. Continue to monitor renal function and daily assessment for timing of restarting outpatient dosing of diuretic (appears he is on Lasix 20 mg daily)
Carvedilol has been restarted at half the outpatient dose. Currently tolerating continue to monitor. If blood pressures remain stable we will then titrate back to previous dose of 12.5 twice daily
Impression / Plan
-
I/P: 79M with NICM, HFmrEF, mild to moderate aortic insufficiency, hypertension, adrenal insufficiency on steroids, and former smoker who presented to the emergency room with complaints of cough, found to have hypoxic respiratory failure and septic
shock.
Primary Psych Specialist: Dr. Lopez
Acute hypoxic respiratory failure
- Diagnosis is a threat to life. He continues to require HFNC.
- CT chest with bilateral infiltrates. Concern for atypical pneumonia vs ILD vs less likely pulmonary edema
- Cath 12/2022: Top normal to mildly elevated filling pressures (LVEDP = 15 mmHg at 81.5 kg)
- Pulmonary following. Continue abx and wean FiO2 as tolerated
- Hold Lasix. Pulm edema is likely not a large contributing factor. He developed ROHITH and increased BUN with diuresis.
-CXR 01/12/25 - Increased reticular and groundglass opacities throughout both lungs, which appears similar to radiograph of January 11, 2025. Bilateral pneumonia is a possibility, with main differential consideration of bilateral pulmonary edema.
- Weight 84.2 which is similar to admit
HFmrEF, recovered
- LVEF now 60 to 65%, previous 40-45%.
- Resume home Carvedilol at 1/2 dose now that BPs have recovered
- Resume additional GDMT over next few days
- received lasix Cr increased to 1.9 as a diuretic held. Creatinine now improving to 1.5.
NSVT
- 8 beat run NSVT 6/3 PM
- Resume Carvedilol as above
- Monitor electrolytes
ROHITH on CKD
- Creatinine 1.06 on outpatient labs (02/2024). Increased to 1.9 and now trending down to 1.5
- Follow renal function with holding diuretics
Septic shock - a threat to life
- improved/resolved
Chest pain
- trop downtrending despite symptoms.
- EF 60 to 65%. Aortic sclerosis without stenosis mild to moderate aortic regurgitation mildly dilated aortic root 4.2 cm
- Suspected noncardiac CP still with some intermittent right lower chest discomfort near right costal margin seem to be worse when he tried to get out of bed may be more positional
Continue supportive treatment
Abnormal troponin
- nonischemic myocardial injury / ongoing hypoxic RF and ROHITH
Adrenal insufficiency, acute on chronic
- Started on stress dose steroids , 01/10/2025
Aortic insufficiency, mild to moderate, unchanged
Mildly dilated aortic root (4.2 cm)
Hypertension, medical therapy on hold in the setting of hypotension
Melanoma status post resection and treatment with Keytruda
Prediabetes
Bipolar disorder, on bupropion and Depakote
Former tobacco use, continue cessation recommended
Physical Exam
Vital Signs/Labs
Vital Signs
Temp Pulse Resp BP Pulse Ox
97.4 F 65 21 155/70 90
01/13/25 03:30 01/13/25 07:55 01/13/25 06:00 01/13/25 07:55 01/13/25 06:00
01/12/25 01/13/25 01/14/25
06:59 06:59 06:59
Actual Weight 84.2 kg
01/13/25 05:53
01/13/25 05:53
PT 17.0 Sec (11.4-14.6) H 01/10/25 09:50
INR 1.36 01/10/25 09:50
APTT 44.7 Sec (23.4-35.0) H 01/10/25 09:50
01/09/25 01/13/25
16:35 05:53
[id number] Pept 9710 8320
LAB Results
01/10/25 01/10/25 01/10/25
09:50 10:00 15:53
Troponin I 0.043 H* Cancelled 0.033
01/10/25 01/11/25
22:00 04:20
Troponin I Cancelled 0.024
Physical Exam
Constitutional: No acute distress
Cardiovascular: Rhythm & rate is regular
Respiratory: Wheeze Absent and Rhonchi Absent
GI: Soft and Non tender
Neuro/Psych: Alert
Data Reviewed
-
Date of Service: January 13, 2025
Medical Decision Making: Reviewed Test Results
Echo: Report Reviewed by me
X-Ray/CT/US/MRI/NUC/PET: Report Reviewed by me
Medical Tests (PFT, Pathology etc): Report Reviewed by me
Labs: Labs Reviewed by me
--- NOTE | 2025-01-13 11:57 | W.PN.PUL3 ---
Today's Communication / Plan
-
Continue oxygen supplementation decreased to 5 L nasal cannula
Continue antibiotics
Follow cultures
Hydrocortisone IV for stress doses-May be helping also possible inflammatory pneumonitis
Follow rheumatologic workup
Follow renal function
Eventually restart diuretics
Will follow
Assessment
-
Patient is a very pleasant 79-year-old gentleman with history of gout, adrenal insufficiency on chronic hydrocortisone who presented to the hospital with shortness of breath which started around Friday. Patient does not report much cough, sore
throat, runny nose or any expectoration. But he reports that his shortness of breath rather came quickly and has been progressive. He was noted to be hypoxic with O2 saturation in 70s and was on nasal cannula and then later on nonrebreather.
Patient's imaging was suggestive of bilateral infiltrates concerning for cardiogenic versus noncardiogenic edema. He was admitted to the hospital with suspected multifocal pneumonia and was started on broad-spectrum antibiotics. This morning an
FIBERGLASS LAMINATOR was called for hypotension and patient has since been on low-dose Levophed infusion. He had a follow-up CT earlier this morning which is suggestive of bilateral interstitial infiltrates concerning for pulmonary edema versus atypical pneumonia
versus ARDS. In view of increased oxygen requirement, hypotension and pressor requirement, patient is being transferred to ICU and javascript programmer consult is requested for further input.
Patient denies any expectoration, hemoptysis or pleuritic discomfort. No reported sick contacts. No similar episodes in the past. Patient has chronically been on hydrocortisone due to adrenal insufficiency due to Keytruda use about 2 years ago
from melanoma. He has been off this medication since. Recently he was treated with higher dose of prednisone for suspected gout flare and right arm inflammation. He reports in the past also he has required intermittent prednisone bursts for
suspected gout flare versus other rheumatological diagnosis. He follows up with the rheumatology clinic as outpatient. He finished prednisone taper on 01/04 and has currently been on his baseline hydrocortisone.
Other chronic medical diagnoses:
-HTN
-DM
-h/o Bipolar disease
-Hypothyroidism
-h/o melanoma
-BPH
-Anemia, chronic
01/12: Patient continues to be afebrile, no cough, dyspnea improving. Not on any drips. Currently down to mid flow, saturating 95%. No expectoration or fever.
Transfer out of the critical care unit.
Pulmonary following 01/13/2025.
#1. Acute hypoxic respiratory failure-improved currently 5 L nasal cannula pulse ox 97% 01/13/2025.
- Bilateral infiltrates noted on imaging with broad differential diagnosis of cardiogenic versus noncardiogenic edema, both infectious and inflammatory diseases are in differential diagnosis
- Initially on high flow-now on 5 L nasal cannula.
#2. ?Bilateral interstitial infiltrates-Per history acute development as the patient stated that he underwent a PET/CT last week and it was clear. In 2022 CAT scan there was no evidence for interstitial lung disease.
- ?Atypical pneumonia vs Pulmonary edema vs ILD
- MRSA screen negative, discontinued vancomycin. Since c all cultures negative.,
discontinued Zosyn
Continue Rocephin. Continue doxycycline for now-complete 7 days of antibiotics.
- Legionella and streptococcal pneumonia antigen negative, influenza A, B screen negative. Blood cultures negative so far. COVID-19 screen negative. Nasal MRSA screen on 01/09 negative
- Negative extended respiratory viral panel, await Fungitell.
- Await connective tissue panel including rheumatoid factor, REGINA, ANCA, and CRP. So far workup negative-currently on high-dose hydrocortisone for stress doses as the patient has history of adrenal insufficiency.
- Chest x-ray overall shows mild improvement compared to 48 hours ago
- Hemoglobin has been stable, diffuse alveolar hemorrhage less likely
#3. Hypotension with shock-resolved.
- Resolved, currently off Levophed, MAP greater than 65.
- Lactate is reassuring at 0.8
- Continue stress dose steroids and antibiotics
#4. History of adrenal insufficiency
- Chronically has been on hydrocortisone, continue stress dose for now
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
#5. History of gout,? Rheumatoid arthritis
- Patient has chronically been on colchicine
- For right arm swelling, has been treated with prednisone taper twice in the last 6 months, he recently finished prednisone on January 04
- Checking connective tissue disease panel
- Patient follows up with tools and parts attendant as outpatient
#6. Minimal troponin leak-chest pain-free.
History of heart failure with reduced ejection fraction. Pulmonary edema in the differential diagnosis. Does not appear volume overloaded on exam.
- Suspect it is type II related to hypoxic respiratory failure and hypotension
Cardiac catheterization in 12/2022 showed only minor luminal irregularities in LAD
- Also history of aortic regurgitation and diastolic dysfunction in the past
- Lasix continues to be on hold until creatinine improved
-Cardiology following
#7. Chronic kidney disease, stage III/IV-monitor renal function, eventually restart diuresis.
- Chronic metabolic acidosis noted
- Creatinine 1.9 -improving down to 1.5.
- Urinalysis: 7-10 RBCs/11-15 white blood cells/many bacteria/granular casts 3-5. Moderate active sediment. Follow renal function closely. May need to consider nephrology evaluation if there is no improvement on renal insufficiency.
DVT prophylaxis, subcu heparin.
High risk situation.
Dr. Chavez updated patient and in detail 01/13/2025 at the bedside.

Data:
CXR 01/2025: New findings suggesting moderate pulmonary edema. Pneumonia not completely excluded. Clinical and laboratory correlation recommended
CT Chest 01/2025: 1. Diffusely bilateral groundglass opacities with scattered areas of interlobular septal thickening and more confluent airspace disease in the posterior aspects of both upper and lower lobes. Trace bilateral pleural effusions and
moderate cardiomegaly. Findings suggestive of pulmonary edema. Additional considerations include ARDS and diffuse alveolar hemorrhage.
ECHO 01/2025: -Left ventricular ejection fraction is 60-65%. Normal regional wall motion.
-Enlarged right ventricular size. Normal right ventricular systolic function.
-Aortic sclerosis without stenosis. Mild to moderate, eccentric aortic
regurgitation.
-Mild tricuspid regurgitation. Estimated pulmonary artery pressure of 40-45
mmHg.
-Mildly dilated aortic root (4.2 cm)
- PASP 40-45 mm with mild TR
ECHO 01/2024: Normal left ventricular chamber size with moderate concentric left ventricular
hypertrophy.
Left ventricular ejection fraction is 40-45% by Leo's method of disc.
Mild, eccentric aortic regurgitation.
Moderate pulmonary hypertension.
Dilated Sinus of Valsalva and ascending aorta.
Compared to the prior on 01/04/2022, there is now stage 2 diastolic dysfunction
and moderate pulmonary hypertension.
[facility] 12/2022: 1. Right dominant circulation with cloacal left main and minor luminal irregularities in the LAD.
2. Top normal to mildly elevated filling pressures (LVEDP = 15 mmHg at 81.5 kg).
3. Mild to moderate aortic valve insufficiency.
4. Top normal to mildly dilated aortic root.
Subjective Data
-
Date of Service:
Date of Service: January 13, 2025
Chief Complaint: Pulmonary Follow Up (Acute hypoxemic respiratory failure)
Subjective:
Patient feels better
Currently on 5 L nasal cannula pulse ox 97% at rest
Denies cough, phlegm production or wheezing.
Sitting out of bed comfortably
Review of Systems
Cardiopulmonary: Dyspnea (Improved) and Cough (Improved)
GI: Abdominal Pain (n) and Nausea (n)
Neuro: Headache (n)
Objective Data
Data Reviewed
Vital Signs / I&O / Oxygen:
Vital Signs
Temp Pulse Resp BP Pulse Ox
96.3 F L 57 19 160/76 97
01/13/25 07:45 01/13/25 10:00 01/13/25 10:00 01/13/25 10:00 01/13/25 10:00
Intake and Output
01/12/25 01/13/25 01/14/25
06:59 06:59 06:59
Intake Total 1160 / 1160 1350 / 1350 360 / 360
Output Total 1175 / 1175 650 / 650 100 / 100
Balance -15 / -15 700 / 700 260 / 260
SaO2 97
Nasal Cannula flow liters per 40
minute
Physical Exam
General: Comfortable
HEENT: Normocephalic
Cardiovascular: S1-S2
Respiratory: Crackles
GI: Soft and Non Distended
Neurology: Awake, Alert, AO x 3 and No Motor Deficits
Skin: Warm
Labs/Micro/Reports
Lab Data
01/13/25 05:53
01/13/25 05:53
Microbiology
01/09/25 16:54 Blood/Venous Blood Culture - Preliminary
No Growth in 72 hours- Final report to follow
01/09/25 16:35 Blood/Venous Blood Culture - Preliminary
No Growth in 72 hours- Final report to follow
01/10/25 17:35 Nasalpharynx Influenza Type A (PCR) - Final
Not Detected
01/10/25 17:35 Nasalpharynx Influenza Type A (H1) (PCR) - Final
Not Detected
01/10/25 17:35 Nasalpharynx Influenza Type A (H3) (PCR) - Final
Not Detected
01/10/25 17:35 Nasalpharynx Influenza Type B (PCR) - Final
Not Detected
01/10/25 17:35 Nasalpharynx Resp Syncytial Virus Type A (PCR) - Final
Not Detected
01/10/25 17:35 Nasalpharynx Resp Syncytial Virus Type B (PCR) - Final
Not Detected
01/10/25 17:35 Nasalpharynx Adenovirus DNA (PCR) - Final
Not Detected
01/10/25 17:35 Nasalpharynx Human Metapneumovirus (PCR) - Final
Not Detected
01/10/25 17:35 Nasalpharynx Parainfluenza Virus Type 1 (PCR) - Final
Not Detected
01/10/25 17:35 Nasalpharynx Parainfluenza Virus Type 2 (PCR) - Final
Not Detected
01/10/25 17:35 Nasalpharynx Parainfluenza Virus Type 3 (PCR) - Final
Not Detected
01/10/25 17:35 Nasalpharynx Parainfluenza Virus Type 4 - Final
Not Detected
01/10/25 17:35 Nasalpharynx Rhinovirus (PCR) - Final
Not Detected
01/09/25 00:01 Nose Nasal Screen MRSA (PCR) - Final
MRSA not detected - performed by PCR methodology.
[2025-01-13 12:21] LABS: Glucose - Point of Care 279 mg/dl (70-99)
[2025-01-13 12:28] LABS: Myeloperoxidase Antibody 0 AU/mL (0-19); Serine Protease-3, IgG 1 AU/mL (0-19)
[2025-01-13] MEDS: NOVOLOG FLEXPEN-MODERATE RESISTANCE 5 UNITS SC (12:38)
[2025-01-13] MEDS: ROCEPHIN 1000 MG IV (13:07)
[2025-01-13] MEDS: STERILE WATER FOR INJECTION 10 ML IV (13:07)
--- NOTE | 2025-01-13 13:16 | W.PN.HOSP.TC ---
Today's Communication/Plan
-
wean o2
Pulmonary toilet
abx
start weaning steroids
anticipate diuretic initiation within 24-48 hours
Assessment / Plan
Assessment / Plan
# Hypoxemic respiratory failure/sepsis (fever, tachycardia) secondary to atypical multifocal pneumonia
-possible viral pneumonia
# History of MRSA in sputum
-CT imaging - diffuse ground glass opacities
-Requiring nonrebreather
-Chest x-ray appears to show severe multifocal pneumonia, report pending
- COVID and influenza negative
- Check sputum culture, blood cultures
- Negative strep antigen, Legionella, MRSA
-Weaned off HFNC; now on Midflow; Goal o2>92%
- MRSA neg, DC Vanc
- ceftriaxone, doxycycline - should be at least 10-14 day course of abx
- NO DVT on US
-IVF PRN
-Incentive rizwana, acapella
-At this point, will continue hydrocortisone, anticipate weaning tomorrow
-anticipate diuretics in the next 24- 48 hours
#Septic Shock, resolved
-IVF PRn
-cont abx
-MAP goal >65
- Lactate neg
- Weaned off pressors
-Continue Hydrocortisone for stress dose steroids, anticipating weaning tomorrow
#Chest pain
-i suspect pleuritic with pneumonia
-was given 325 asa and nitro with no relief
-Trend Trops until peak
-ECHO with no WMA
#metabolic Acidosis
#ROHITH on CKD
-resolving
-monitor with resuscitation
-monitor HCO3
-Cont to hold diuretics; anticipate starting in 24-48 hours
# Mild thrombocytopenia secondary to sepsis
- Continue to monitor
Gout
- Continue allopurinol, colchicine
Chronic anemia
Essential hypertension
NSVT
- resume low dose Coreg
History of adrenal insufficiency
- Stress dose steroids
Hypothyroidism
- Continue levothyroxine
Melanoma
Bipolar disorder
- Continue bupropion, Depakote
Type 2 diabetes
His most exacerbated by steroids
-start lantus, wean with weaning of steroids
-a1c 6.4
Former tobacco use
BPH
- Continue tamsulosin
Full code
DVT prophylaxis�heparin
Regular diet
Total time spent on today's encounter was 50 minutes which included time spent in counseling the patient/family regarding diagnosis and treatment plan as listed above, goals of care, and symptom management. Case was discussed with nursing staff,
specialists, and care coordinators/case management. All labs and imaging personally reviewed by me. Remainder the time spent in detailed review of previous records, lab data, imaging, and other medical provider documentation.
Anticipated Discharge: > 48 hours
Subjective/Interval History
-
Date of Service: January 13, 2025
weaning down to midflow
Objective Data
-
Labs:
Laboratory Results
01/13/25
05:53
WBC 11.6 H
Hgb 12.1 L
Hct 37.8 L
Plt Count 195 D
Sodium 141
Potassium 4.0
Chloride 109 H
Carbon Dioxide 26
BUN 67 H
Creatinine 1.5 H
Glucose 201 H
Calcium 8.9
Total Bilirubin 0.4
AST 26
ALT 21
Alkaline Phosphatase 89
Vital Signs:
Vital Signs
Temp Pulse Resp BP Pulse Ox
96.3 F L 57 19 160/76 97
01/13/25 07:45 01/13/25 10:00 01/13/25 10:00 01/13/25 10:00 01/13/25 10:00
I&O
01/12/25 01/13/25 01/14/25
06:59 06:59 06:59
Intake Total 1160 / 1160 1350 / 1350 360 / 360
Output Total 1175 / 1175 650 / 650 100 / 100
Balance -15 / -15 700 / 700 260 / 260
Review of Systems
-
History Source: Patient
All other systems: Not reviewed unless documented
Data Reviewed
-
Diagnostic Radiology: Report Reviewed by me
CT Scan: Report Reviewed by me
Labs: Labs Reviewed by me
[2025-01-13 14:58] LABS: ANA, IgG Reflex to HEp-2 None Detected (None Detected)
[2025-01-13] MEDS: LIPITOR 10 MG PO (17:04)
[2025-01-13] MEDS: NOVOLOG FLEXPEN-MODERATE RESISTANCE 241 UNITS SC (17:05)
[2025-01-13 17:14] LABS: Glucose - Point of Care 241 mg/dl (70-99)
--- NOTE | 2025-01-13 20:17 | PTCARENOTE ---
Pt received from augustinealvictor manuel RN. Pt AAOx3, NSR on monitor, Pt on 8L midflow sat 96%. Rates pain 0/10 at this times. using BSCx1 CRW. assessment as documented. call light in reach. safe environment maintained.
[2025-01-13] MEDS: LANTUS 0.15 UNITS SC (22:25)
[2025-01-13] MEDS: FLOMAX 0.4 MG PO (22:26)
[2025-01-13 22:31] LABS: Glucose - Point of Care 241 mg/dl (70-99)
[2025-01-14] VITALS (15 sets, daily range): BP systolic 125–183; BP diastolic 61–138; PULSE 66–68; O2SAT 95
[2025-01-14] MEDS: SOLU-CORTEF 50 MG IV ×4 (00:25→22:10)
[2025-01-14] MEDS: TYLENOL 650 MG PO ×2 (06:41→19:59)
[2025-01-14] MEDS: SYNTHROID 75 MCG PO (06:43)
[2025-01-14 06:51] LABS: Hematocrit 35.5 % (39.0-52.0); Hemoglobin 11.4 g/dL (13.0-18.0); Mean Corp Hgb Conc. 32.1 g/dL (33.0-37.0); Mean Corpuscular Hgb 25.7 pg (27.0-31.0); Mean Platelet Volume 9.7 fL (7.4-10.4); Platelet Count 204 10^3/uL (130-400); Red Blood Cell Count 4.44 10^6/uL (4.70-6.10)
[2025-01-14 07:17] LABS: ALT (SGPT) 21 U/L (0-50); AST (SGOT) 24 U/L (17-59); Albumin 3.1 g/dl (3.5-5.0); Alkaline Phosphatase 83 U/L (38-126); Blood Urea Nitrogen 60 mg/dl (9-20); Carbon Dioxide 24 mmol/L (22-30); Chloride 112 mmol/L (98-107); Estimated Creatinine Clearance 50 ml/min; Glucose 153 mg/dl (70-99); Potassium 4.2 mmol/L (3.5-5.1); Sodium 142 mmol/L (135-145); Total Bilirubin 0.5 mg/dl (0.2-1.3); Total Protein 5.4 g/dl (6.3-8.2); eGFR 56.23
[2025-01-14 07:42] LABS: Glucose - Point of Care 167 mg/dl (70-99)
--- NOTE | 2025-01-14 07:44 | W.PN.CD ---
Addendum entered and electronically signed by Natanael Lopez MD 01/17/25 07:42:
CDI Inquiry --> Chronich HFrecovered EF
Original Note:
Today's Communication / Plan
-
Added nifedipine for HTN can be d/c on this
Cont wean oxygen
Add lasix back on d/c
We will sign off please call with questions/concerns.
Impression / Plan
-
I/P: 79M with NICM, HFmrEF, mild to moderate aortic insufficiency, hypertension, adrenal insufficiency on steroids, and former smoker who presented to the emergency room with complaints of cough, found to have hypoxic respiratory failure and septic
shock.
Primary Benzene Operator: Dr. Lopez
Acute hypoxic respiratory failure
- Diagnosis is a threat to life. He continues to require HFNC.
- CT chest with bilateral infiltrates. Concern for atypical pneumonia vs ILD vs less likely pulmonary edema
- Cath 12/2022: Top normal to mildly elevated filling pressures (LVEDP = 15 mmHg at 81.5 kg)
- Pulmonary following. Continue abx and wean FiO2 as tolerated
- Hold Lasix. Pulm edema is likely not a large contributing factor. He developed ROHITH and increased BUN with diuresis.
-CXR 01/12/25 - Increased reticular and groundglass opacities throughout both lungs, which appears similar to radiograph of January 11, 2025. Bilateral pneumonia is a possibility, with main differential consideration of bilateral pulmonary edema.
- Weight 84.2 which is similar to admit
HFmrEF, recovered
- LVEF now 60 to 65%, previous 40-45%.
- Resume home Carvedilol at 1/2 dose now that BPs have recovered
- Resume additional GDMT over next few days
- received lasix Cr increased to 1.9 as a diuretic held. Creatinine now improving to 1.5.
- would resume lasix on d/c
NSVT
- 8 beat run NSVT 6/3 PM
- Resume Carvedilol as above
- Monitor electrolytes
ROHITH on CKD
- Creatinine 1.06 on outpatient labs (02/2024). Increased to 1.9 and now trending down to 1.5
- Follow renal function with holding diuretics
Septic shock - a threat to life
- improved/resolved
Chest pain
- trop downtrending despite symptoms.
- EF 60 to 65%. Aortic sclerosis without stenosis mild to moderate aortic regurgitation mildly dilated aortic root 4.2 cm
- Suspected noncardiac CP still with some intermittent right lower chest discomfort near right costal margin seem to be worse when he tried to get out of bed may be more positional
Continue supportive treatment
Abnormal troponin
- nonischemic myocardial injury 2/ ongoing hypoxic RF and ROHITH
Adrenal insufficiency, acute on chronic
- Started on stress dose steroids , 01/10/2025
Aortic insufficiency, mild to moderate, unchanged
Mildly dilated aortic root (4.2 cm)
Hypertension, medical therapy on hold in the setting of hypotension
Melanoma status post resection and treatment with Keytruda
Prediabetes
Bipolar disorder, on bupropion and Depakote
Former tobacco use, continue cessation recommended
Physical Exam
Vital Signs/Labs
Vital Signs
Temp Pulse Resp BP Pulse Ox
97.5 F 53 14 164/63 98
01/14/25 03:10 01/14/25 06:00 01/14/25 06:00 01/14/25 06:00 01/14/25 06:00
01/14/25 06:26
01/14/25 06:26
PT 17.0 Sec (11.4-14.6) H 01/10/25 09:50
INR 1.36 01/10/25 09:50
APTT 44.7 Sec (23.4-35.0) H 01/10/25 09:50
01/09/25 01/13/25
16:35 05:53
[id number] Pept [id number]
Physical Exam
Constitutional: No acute distress and Comfortable
EENT: Anicteric
Cardiovascular: Rhythm & rate is regular and Pedal edema is absent
Respiratory: Respiratory effort normal and Lungs clear to auscul.
GI: Soft
Neuro/Psych: AO x 3
Data Reviewed
-
Date of Service: January 14, 2025
EKG: Tracing Personally Visualized and interpreted (sr)
Echo: Report Reviewed by me
Labs: Labs Reviewed by me
[2025-01-14] MEDS: LIDOCAINE 4% PATCH 1 PATCH TOPICAL (07:52)
[2025-01-14] MEDS: NOVOLOG FLEXPEN-MODERATE RESISTANCE 1 UNITS SC ×2 (09:05→12:58)
[2025-01-14] MEDS: NOVOLOG FLEXPEN 5 UNITS SC ×2 (09:05→12:59)
[2025-01-14] MEDS: COREG 6.25 MG PO ×2 (09:06→20:00)
[2025-01-14] MEDS: VIBRAMYCIN 100 MG PO ×2 (09:06→19:59)
[2025-01-14] MEDS: COLCHICINE 0.3 MG PO (09:06)
[2025-01-14] MEDS: THERAGRAN 1 TABLET PO (09:06)
[2025-01-14] MEDS: RESTASIS 0.05% OPHTHALMIC EMULSION 1 DROPS BOTH EYES ×2 (09:06→20:03)
[2025-01-14] MEDS: VITAMIN B-12 1000 MCG PO (09:07)
[2025-01-14] MEDS: ZYLOPRIM 100 MG PO (09:07)
[2025-01-14] MEDS: ASPIR LOW (ENTERIC COATED) 81 MG PO (09:07)
[2025-01-14] MEDS: HEPARIN 5000 UNITS SC ×2 (09:07→20:03)
[2025-01-14] MEDS: WELLBUTRIN SR (12 hour sustained release) 150 MG PO ×2 (09:07→19:59)
[2025-01-14] MEDS: FEOSOL 325 MG PO (09:07)
[2025-01-14] MEDS: DEPAKOTE (12 HR RELEASE) 250 MG PO ×3 (09:07→22:10)
[2025-01-14] MEDS: PROCARDIA XL (EXTENDED RELEASE) 30 MG PO (09:36)
--- NOTE | 2025-01-14 09:45 | W.PN.PUL3 ---
Today's Communication / Plan
-
Continue current antibiotics for today-consider transition to orals tomorrow.
Continue hydrocortisone-would recommend tapering slowly either hydrocortisone or prednisone over the next 2 to 3 weeks with close pulmonary evaluation for possible inflammatory pneumonitis
Wean down oxygen currently 4 L-Home oxygen assessment tomorrow
Physical therapy
Occupational Therapy
Will obtain a CRP in the morning
Diuretics to be started upon discharge
Will follow
Assessment
-
Patient is a very pleasant 79-year-old gentleman with history of gout, adrenal insufficiency on chronic hydrocortisone who presented to the hospital with shortness of breath which started around Friday. Patient does not report much cough, sore
throat, runny nose or any expectoration. But he reports that his shortness of breath rather came quickly and has been progressive. He was noted to be hypoxic with O2 saturation in 70s and was on nasal cannula and then later on nonrebreather.
Patient's imaging was suggestive of bilateral infiltrates concerning for cardiogenic versus noncardiogenic edema. He was admitted to the hospital with suspected multifocal pneumonia and was started on broad-spectrum antibiotics. This morning an
COURTESY DRIVER was called for hypotension and patient has since been on low-dose Levophed infusion. He had a follow-up CT earlier this morning which is suggestive of bilateral interstitial infiltrates concerning for pulmonary edema versus atypical pneumonia
versus ARDS. In view of increased oxygen requirement, hypotension and pressor requirement, patient is being transferred to ICU and bending roll hand consult is requested for further input.
Patient denies any expectoration, hemoptysis or pleuritic discomfort. No reported sick contacts. No similar episodes in the past. Patient has chronically been on hydrocortisone due to adrenal insufficiency due to Keytruda use about 2 years ago
from melanoma. He has been off this medication since. Recently he was treated with higher dose of prednisone for suspected gout flare and right arm inflammation. He reports in the past also he has required intermittent prednisone bursts for
suspected gout flare versus other rheumatological diagnosis. He follows up with the rheumatology clinic as outpatient. He finished prednisone taper on 01/04 and has currently been on his baseline hydrocortisone.
Other chronic medical diagnoses:
-HTN
-DM
-h/o Bipolar disease
-Hypothyroidism
-h/o melanoma
-BPH
-Anemia, chronic
01/12: Patient continues to be afebrile, no cough, dyspnea improving. Not on any drips. Currently down to mid flow, saturating 95%. No expectoration or fever.
Transfer out of the critical care unit.
Pulmonary following 01/13/2025.
#1. Acute hypoxic respiratory failure-improved currently 4 L nasal cannula pulse continue to wean down as able.-97% O2sat
- Bilateral infiltrates noted on imaging with broad differential diagnosis of cardiogenic versus noncardiogenic edema, both infectious and inflammatory diseases are in differential diagnosis
- Initially on high flow.
#2. ?Bilateral interstitial infiltrates-Per history acute development as the patient stated that he underwent a PET/CT last week and it was clear. In 2022 CAT scan there was no evidence for interstitial lung disease.
- ?Atypical pneumonia vs Pulmonary edema vs ILD(idiopathic acute interstitial pneumonia)
- MRSA screen negative, discontinued vancomycin. Since c all cultures negative.,
discontinued Zosyn
Continue Rocephin. Continue doxycycline for now-complete 7 days of antibiotics. Hopefully can transition to orals in the next 24 to 48 hours if he continues to improve.
- Legionella and streptococcal pneumonia antigen negative, influenza A, B screen negative. Blood cultures negative so far. COVID-19 screen negative. Nasal MRSA screen on 01/09 negative
- Negative extended respiratory viral panel, await Fungitell.
-Rheumatologic serology negative-currently on high-dose hydrocortisone for stress doses as the patient has history of adrenal insufficiency.
-Agree with tapering down hydrocortisone-upon discharge-will recommend a slow taper of steroids may use prednisone over the next several weeks with close pulmonary follow-up.
- Repeat chest x-ray in the next 48 hours.
check CRP
- Hemoglobin has been stable, diffuse alveolar hemorrhage less likely
#3. Hypotension with shock-resolved.
- Resolved, currently off Levophed, MAP greater than 65.
- Lactate is reassuring at 0.8
- Continue stress dose steroids and antibiotics
#4. History of adrenal insufficiency
- Chronically has been on hydrocortisone, continue stress dose for now-tapering down.
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
#5. History of gout,? Rheumatoid arthritis
- Patient has chronically been on colchicine
- For right arm swelling, has been treated with prednisone taper twice in the last 6 months, he recently finished prednisone on January 04
- Checking connective tissue disease panel
- Patient follows up with registered nurse hh case manager as outpatient
#6. Minimal troponin leak-chest pain-free.
History of heart failure with reduced ejection fraction. Pulmonary edema in the differential diagnosis. Does not appear volume overloaded on exam.
- Suspect it is type II related to hypoxic respiratory failure and hypotension
Cardiac catheterization in 12/2022 showed only minor luminal irregularities in LAD
- Also history of aortic regurgitation and diastolic dysfunction in the past
- Lasix continues to be on hold until creatinine improved
-Cardiology has signed off-recommended restarting Lasix upon discharge.
#7. Chronic kidney disease, stage III/IV-monitor renal function, eventually restart diuresis.
- Chronic metabolic acidosis noted
- Creatinine 1.9 -improving down to 1.5.
- Urinalysis: 7-10 RBCs/11-15 white blood cells/many bacteria/granular casts 3-5. Moderate active sediment. Follow renal function closely. May need to consider nephrology evaluation if there is no improvement on renal insufficiency.
- Creatinine is improving.
Physical therapy/Occupational-increase activity as tolerated.
DVT prophylaxis, subcu heparin.
High risk situation.
Dr. Chavez updated patient and in detail 01/13/2025, 01/14/2025 at the bedside.
Patient will require outpatient pulmonary follow-up.

Data:
CXR 01/2025: New findings suggesting moderate pulmonary edema. Pneumonia not completely excluded. Clinical and laboratory correlation recommended
CT Chest 01/2025: 1. Diffusely bilateral groundglass opacities with scattered areas of interlobular septal thickening and more confluent airspace disease in the posterior aspects of both upper and lower lobes. Trace bilateral pleural effusions and
moderate cardiomegaly. Findings suggestive of pulmonary edema. Additional considerations include ARDS and diffuse alveolar hemorrhage.
ECHO 01/2025: -Left ventricular ejection fraction is 60-65%. Normal regional wall motion.
-Enlarged right ventricular size. Normal right ventricular systolic function.
-Aortic sclerosis without stenosis. Mild to moderate, eccentric aortic
regurgitation.
-Mild tricuspid regurgitation. Estimated pulmonary artery pressure of 40-45
mmHg.
-Mildly dilated aortic root (4.2 cm)
- PASP 40-45 mm with mild TR
ECHO 01/2024: Normal left ventricular chamber size with moderate concentric left ventricular
hypertrophy.
Left ventricular ejection fraction is 40-45% by Leo's method of disc.
Mild, eccentric aortic regurgitation.
Moderate pulmonary hypertension.
Dilated Sinus of Valsalva and ascending aorta.
Compared to the prior on 01/04/2022, there is now stage 2 diastolic dysfunction
and moderate pulmonary hypertension.
[facility] 12/2022: 1. Right dominant circulation with cloacal left main and minor luminal irregularities in the LAD.
2. Top normal to mildly elevated filling pressures (LVEDP = 15 mmHg at 81.5 kg).
3. Mild to moderate aortic valve insufficiency.
4. Top normal to mildly dilated aortic root.
Subjective Data
-
Date of Service:
Date of Service: January 14, 2025
Chief Complaint: Pulmonary Follow Up (Acute hypoxemic respiratory failure)
Subjective:
Feels better
Remains on nasal cannula supplemental oxygen
Denies hemoptysis or phlegm production
Review of Systems
Cardiopulmonary: Dyspnea (Improved), Cough (Improved), Sputum Production (None) and Hemoptysis ( denies)
Objective Data
Data Reviewed
Vital Signs / I&O / Oxygen:
Vital Signs
Temp Pulse Resp BP Pulse Ox
96.6 F L 74 13 183/71 98
01/14/25 07:05 01/14/25 09:06 01/14/25 08:01 01/14/25 09:06 01/14/25 08:01
Intake and Output
01/13/25 01/14/25 01/15/25
06:59 06:59 06:59
Intake Total 1350 / 1350 360 / 360
Output Total 650 / 650 700 / 700
Balance 700 / 700 -340 / -340
SaO2 98
Nasal Cannula flow liters per 40
minute
Physical Exam
General: Comfortable
HEENT: Normocephalic
Cardiovascular: S1-S2
Respiratory: Crackles
GI: Soft and Non Distended
Neurology: Awake, Alert, AO x 3 and No Motor Deficits
Skin: Warm
Labs/Micro/Reports
Lab Data
01/14/25 06:26
01/14/25 06:26
Microbiology
01/09/25 16:54 Blood/Venous Blood Culture - Preliminary
No Growth in 4 days- Final report to follow
01/09/25 16:35 Blood/Venous Blood Culture - Preliminary
No Growth in 4 days- Final report to follow
--- NOTE | 2025-01-14 10:04 | PTCARENOTE ---
Assumed care of patient at beginning of this shift from previous RN. Able to wean to 3L midflow this morning with current POx 98%. Patient OOB to commode and chair with 1 person assist using RW. Patient c/o R rib pain continued after tylenol given
on previous shift; lidoderm patch placed with relief.
[2025-01-14] MEDS: STERILE WATER FOR INJECTION 10 ML IV (11:31)
[2025-01-14] MEDS: ROCEPHIN 1000 MG IV (11:32)
[2025-01-14 12:01] LABS: Glucose - Point of Care 182 mg/dl (70-99)
--- NOTE | 2025-01-14 14:44 | W.PN.HOSP.TC ---
Addendum entered and electronically signed by Jimbo Rosario MD 01/14/25 15:20:
Non ischemic myocardial injury
Original Note:
Today's Communication/Plan
-
cont to wean steroids
switch to po abx tomorrow
added nifedipine
Assessment / Plan
Assessment / Plan
# Hypoxemic respiratory failure/sepsis (fever, tachycardia) secondary to atypical multifocal pneumonia
-possible viral pneumonia
# History of MRSA in sputum
-CT imaging - diffuse ground glass opacities
-Requiring nonrebreather
-Chest x-ray appears to show severe multifocal pneumonia, report pending
- COVID and influenza negative
- Check sputum culture, blood cultures
- Negative strep antigen, Legionella, MRSA
-Weaned off HFNC; now on Midflow; Goal o2>92%
- MRSA neg, DC Vanc
- ceftriaxone, doxycycline - should be at least 10-14 day course of abx; anticipate switching over to PO tomorrow
- NO DVT on US
-IVF PRN
-Incentive rizwana, acapella
-At this point, will continue hydrocortisone, continue weaning; will need a slow taper of the next 2-3 weeks
-anticipate diuretics upon DC or if worsening LE edema
#Septic Shock, resolved
-IVF PRn
-cont abx
-MAP goal >65
- Lactate neg
- Weaned off pressors
-Continue Hydrocortisone for stress dose steroids, weaning to 50mg q8h today
#Chest pain
-i suspect pleuritic with pneumonia
-was given 325 asa and nitro with no relief
-Trend Trops until peak
-ECHO with no WMA
#metabolic Acidosis
#ROHITH on CKD
-resolving
-monitor with resuscitation
-monitor HCO3
-Cont to hold diuretics; anticipate starting if worsening LE edema or upon dc.
# Mild thrombocytopenia secondary to sepsis
- Continue to monitor
Gout
- Continue allopurinol, colchicine
Chronic anemia
Essential hypertension
NSVT
- resume low dose Coreg
- Added nifedipine
History of adrenal insufficiency
- Stress dose steroids
Hypothyroidism
- Continue levothyroxine
Melanoma
Bipolar disorder
- Continue bupropion, Depakote
Type 2 diabetes
His most exacerbated by steroids
-start lantus, wean with weaning of steroids
-a1c 6.4
Former tobacco use
BPH
- Continue tamsulosin
Full code
DVT prophylaxis�heparin
Regular diet
Total time spent on today's encounter was 52 minutes which included time spent in counseling the patient/family regarding diagnosis and treatment plan as listed above, goals of care, and symptom management. Case was discussed with nursing staff,
specialists, and care coordinators/case management. All labs and imaging personally reviewed by me. Remainder the time spent in detailed review of previous records, lab data, imaging, and other medical provider documentation.
Anticipated Discharge: > 48 hours
Subjective/Interval History
-
Date of Service: January 14, 2025
no acute events; now on 3L
Objective Data
-
Labs:
Laboratory Results
01/14/25
06:26
WBC 10.0
Hgb 11.4 L
Hct 35.5 L
Plt Count 204
Sodium 142
Potassium 4.2
Chloride 112 H
Carbon Dioxide 24
BUN 60 H
Creatinine 1.3
Glucose 153 H
Calcium 9.0
Total Bilirubin 0.5
AST 24
ALT 21
Alkaline Phosphatase 83
Vital Signs:
Vital Signs
Temp Pulse Resp BP Pulse Ox
96.6 F L 64 15 161/77 96
01/14/25 07:05 01/14/25 10:38 01/14/25 10:38 01/14/25 10:38 01/14/25 10:38
I&O
01/13/25 01/14/25 01/15/25
06:59 06:59 06:59
Intake Total 1350 / 1350 360 / 360
Output Total 650 / 650 700 / 700
Balance 700 / 700 -340 / -340
Review of Systems
-
History Source: Patient
All other systems: Not reviewed unless documented
Physical Exam
-
General: Well Developed, Well Nourished and No Apparent Distress
HEENT: Normocephalic and Atraumatic
Respiratory: Rhonchi (Bilaterally); Negative Wheezes
Cardiac: Regular Rhythm and S1/S2; Negative Murmur
GI: Soft, Nontender, Nondistended and Normal Bowel Sounds
Musculoskeletal: No Clubbing, No Cyanosis, No Edema and Other (joints improved)
Neuro: Awake
Data Reviewed
-
Diagnostic Radiology: Report Reviewed by me
CT Scan: Report Reviewed by me
Labs: Labs Reviewed by me
--- NOTE | 2025-01-14 14:52 | PN.CDI ---
CDI
- -
CDI:
Physician Documentation Request
Admit Date: 01/09/25 19:06
Dear Doctor Marlene,
Clinical Indicators:
Patient admitted with Sepsis with acute hypoxic respiratory failure due to pneumonia.
01/13 Pulmonary PN, 'Minimal troponin leak-chest pain-free...- Suspect it is type II related to hypoxic respiratory failure and hypotension'
01/13 Cardiology PN,'Abnormal troponin- nonischemic myocardial injury 2/2 ongoing hypoxic RF and ROHITH
Troponin trend:
01/10/25 01/10/25 01/11/25
09:50 15:53 04:20
Troponin I 0.043 H* 0.033 0.024
Due to potentially conflicting documentation, please clarify in the etiology of the troponin elevation:
Non ischemic myocardial injury
Type II MN
Other, please specify
Use of terms such as suspected, likely, concern for, or probable (associated with a specific diagnosis that is being evaluated, monitored, or treated as if it exists) are acceptable and can be coded in the inpatient setting, when documented at the
time of discharge.
Thank you,
SHEA Juarez RN
CDI Specialist
available via tiger text
Please use your independent medical judgment in providing your response.
--- NOTE | 2025-01-14 15:02 | PN.CDI ---
CDI
- -
CDI:
Physician Documentation Request
Admit Date: 01/09/25 19:06
Dear Doctor Jessica,
Clinical Indicators:
Patient admitted with sepsis and acute hypoxic respiratory failure
01/10 CXR, 'Mild diffuse prominence of the interstitial markings suggesting pulmonary edema.'
01/10 Cardiology Consult, 'His exam is not very impressive for CHF. He has no significant edema and no bloating...HFmrEF, recovered'
01/10 Lasix 20 mg IV x 1 given.
BNP
01/09/25 01/13/25
[id number] Pept [id number]
Please provide further specificity regarding the most likely acuity of HFmrEF you are evaluating, treating or monitoring.
Chronic HFmrEF
Acute on chronic HFmrEF
Other, please specify
Use of terms such as suspected, likely, concern for, or probable (associated with a specific diagnosis that is being evaluated, monitored, or treated as if it exists) are acceptable and can be coded in the inpatient setting, when documented at the
time of discharge.
Thank you,
SHEA Juarez RN
CDI Specialist
available via tiger text
Please use your independent medical judgment in providing your response.
--- NOTE | 2025-01-14 16:53 | CM ---
Patient with Dx Hypoxemic respiratory failure/sepsis secondary to pneumonia. O2 3L. Receiving IV Steroids, IV Abx. PT/OT recommends outpatient therapy.
Spoke with patient; offered VN for nurse check and he declined saying he did not think it was needed. Patient says he has been doing outpatient PT for > 1 year for his balance and he plans on resuming outpatient PT/OT.
Plan follow patient's O2 needs.
Plan home.
[2025-01-14 17:00] LABS: Glucose - Point of Care 221 mg/dl (70-99)
[2025-01-14] MEDS: LIPITOR 10 MG PO (17:09)
[2025-01-14] MEDS: NOVOLOG FLEXPEN 4 UNITS SC (17:31)
[2025-01-14] MEDS: NOVOLOG FLEXPEN-MODERATE RESISTANCE 3 UNITS SC (17:31)
--- NOTE | 2025-01-14 20:00 | PTCARENOTE ---
Pt AAox3. awake and resting in chair watching TV at this time. Pt is NSR on monitor HR 64, Pt currently on RA satting 95% denies SOB. using urinal to urinate. Pt assisted to use BSC by this RN, pt had small formed soft BM. Pt assisted with HS oral
care by this RN. took HS pills whole withe water. assessment as documented. call light in reach.
[2025-01-14 21:34] LABS: Glucose - Point of Care 198 mg/dl (70-99)
[2025-01-14] MEDS: FLOMAX 0.4 MG PO (22:10)
[2025-01-14] MEDS: LANTUS 0.1 UNITS SC (22:11)
[2025-01-15] VITALS (18 sets, daily range): BP systolic 123–189; BP diastolic 61–113; O2SAT 90–94
[2025-01-15] MEDS: APRESOLINE 5 MG IV (03:47)
[2025-01-15] MEDS: SYNTHROID 75 MCG PO (05:15)
[2025-01-15 05:28] LABS: Hematocrit 33.7 % (39.0-52.0); Hemoglobin 10.8 g/dL (13.0-18.0); Mean Corpuscular Hgb 25.7 pg (27.0-31.0); Mean Platelet Volume 9.4 fL (7.4-10.4); Platelet Count 220 10^3/uL (130-400); Red Blood Cell Count 4.21 10^6/uL (4.70-6.10); Red Cell Dist. Width 20.9 % (11.5-14.5); White Blood Cell Count 10.2 10^3/uL (4.8-10.8)
[2025-01-15 05:50] LABS: ALT (SGPT) 19 U/L (0-50); AST (SGOT) 21 U/L (17-59); Albumin 2.9 g/dl (3.5-5.0); Alkaline Phosphatase 73 U/L (38-126); Blood Urea Nitrogen 60 mg/dl (9-20); Calcium 8.9 mg/dl (8.4-10.2); Carbon Dioxide 24 mmol/L (22-30); Chloride 111 mmol/L (98-107); Estimated Creatinine Clearance 59 ml/min; Glucose 145 mg/dl (70-99); Potassium 4.2 mmol/L (3.5-5.1); Sodium 143 mmol/L (135-145); Total Bilirubin 0.6 mg/dl (0.2-1.3); Total Protein 5.2 g/dl (6.3-8.2); eGFR > 60.00
[2025-01-15] MEDS: TYLENOL 650 MG PO (06:59)
[2025-01-15 07:06] LABS: Glucose - Point of Care 128 mg/dl (70-99)
[2025-01-15] MEDS: SOLU-CORTEF 50 MG IV ×2 (08:38→20:20)
[2025-01-15] MEDS: NOVOLOG FLEXPEN-MODERATE RESISTANCE SC (08:38)
[2025-01-15] MEDS: HEPARIN 5000 UNITS SC ×2 (08:40→20:19)
[2025-01-15] MEDS: PROCARDIA XL (EXTENDED RELEASE) 60 MG PO (08:41)
[2025-01-15] MEDS: FEOSOL 325 MG PO (08:41)
[2025-01-15] MEDS: COLCHICINE 0.3 MG PO (08:42)
[2025-01-15] MEDS: ASPIR LOW (ENTERIC COATED) 81 MG PO (08:42)
[2025-01-15] MEDS: WELLBUTRIN SR (12 hour sustained release) 150 MG PO ×2 (08:42→20:20)
[2025-01-15] MEDS: VIBRAMYCIN 100 MG PO ×2 (08:42→20:20)
[2025-01-15] MEDS: DEPAKOTE (12 HR RELEASE) 250 MG PO ×3 (08:42→21:54)
[2025-01-15] MEDS: ZYLOPRIM 100 MG PO (08:42)
[2025-01-15] MEDS: RESTASIS 0.05% OPHTHALMIC EMULSION 1 DROPS BOTH EYES ×2 (08:42→20:21)
[2025-01-15] MEDS: THERAGRAN 1 TABLET PO (08:42)
[2025-01-15] MEDS: VITAMIN B-12 1000 MCG PO (08:42)
[2025-01-15] MEDS: COREG 6.25 MG PO ×2 (08:42→20:20)
[2025-01-15] MEDS: LIDOCAINE 4% PATCH 1 PATCH TOPICAL (08:43)
[2025-01-15] MEDS: NOVOLOG FLEXPEN SC (08:49)
[2025-01-15] MEDS: SOLU-CORTEF IV (08:50)
[2025-01-15 11:05] LABS: Glucose - Point of Care 244 mg/dl (70-99)
[2025-01-15] MEDS: ROCEPHIN 1000 MG IV (11:42)
[2025-01-15] MEDS: STERILE WATER FOR INJECTION 10 ML IV (11:42)
--- NOTE | 2025-01-15 12:10 | W.PN.HOSP.TC ---
Today's Communication/Plan
-
Wean hydrocortisone to 50 mg every 12 hours, anticipate switching over to p.o. within 24 to 48 hours
Continue antibiotics
Stop Lantus, continue sliding scale�monitor glucose
Nifedipine, titrate hypertensive regimen as needed
Assessment / Plan
Assessment / Plan
# Hypoxemic respiratory failure/sepsis (fever, tachycardia) secondary to atypical multifocal pneumonia
-possible viral pneumonia
# History of MRSA in sputum
-CT imaging - diffuse ground glass opacities
-Requiring nonrebreather
-Chest x-ray appears to show severe multifocal pneumonia, report pending
- COVID and influenza negative
- Check sputum culture, blood cultures
- Negative strep antigen, Legionella, MRSA
-Weaned off HFNC; now on Midflow; Goal o2>92%; now on 1 to 2 L
- MRSA neg, DC Vanc
- ceftriaxone, doxycycline - should be at least 10-14 day course of abx; anticipate switching over to PO today
- NO DVT on US
-IVF PRN
-Incentive rizwana, acapella
- hydrocortisone, continue weaning to 50 mg every 12 hours today; will need a slow taper of the next 2-3 weeks; anticipate switching over to p.o. within 24 to 48 hours or upon DC
-anticipate diuretics upon DC or if worsening LE edema
#Septic Shock, resolved
-IVF PRn
-cont abx
-MAP goal >65
- Lactate neg
- Weaned off pressors
-Continue Hydrocortisone for stress dose steroids, weaning to 50mg q12h today
#Chest pain
-i suspect pleuritic with pneumonia
-was given 325 asa and nitro with no relief
-Trend Trops until peak
-ECHO with no WMA
#metabolic Acidosis
#ROHITH on CKD
-resolving
-monitor with resuscitation
-monitor HCO3
-Cont to hold diuretics; anticipate starting if worsening LE edema or upon dc.
# Mild thrombocytopenia secondary to sepsis
- Continue to monitor
Gout
- Continue allopurinol, colchicine
Chronic anemia
Essential hypertension
NSVT
- resume low dose Coreg
- Added nifedipine
History of adrenal insufficiency
- Stress dose steroids
Hypothyroidism
- Continue levothyroxine
Melanoma
Bipolar disorder
- Continue bupropion, Depakote
Type 2 diabetes
His most exacerbated by steroids
-start lantus, wean with weaning of steroids
-a1c 6.4
Former tobacco use
BPH
- Continue tamsulosin
Full code
DVT prophylaxis�heparin
Regular diet
Anticipated Discharge: 24 - 48 hours
Subjective/Interval History
-
Date of Service: January 15, 2025
No acute events, now 1 L
Objective Data
-
Labs:
Laboratory Results
01/15/25 01/15/25
05:13 05:14
WBC 10.2
Hgb 10.8 L
Hct 33.7 L
Plt Count 220
Sodium 143
Potassium 4.2
Chloride 111 H
Carbon Dioxide 24
BUN 60 H
Creatinine 1.1
Glucose 145 H
Calcium 8.9
Total Bilirubin 0.6
AST 21
ALT 19
Alkaline Phosphatase 73
Vital Signs:
Vital Signs
Temp Pulse Resp BP Pulse Ox
97.8 F 73 19 123/61 95
01/15/25 08:31 01/15/25 10:00 01/15/25 10:00 01/15/25 10:00 01/15/25 08:41
I&O
01/14/25 01/15/25 01/16/25
06:59 06:59 06:59
Intake Total 360 / 360 480 / 480
Output Total 700 / 700 550 / 700 150 / 150
Balance -340 / -340 -70 / -220 -150 / -150
Review of Systems
-
History Source: Patient
All other systems: Not reviewed unless documented
Physical Exam
-
General: Well Developed, Well Nourished and No Apparent Distress
HEENT: Normocephalic and Atraumatic
Respiratory: Rhonchi (Bilaterally); Negative Wheezes
Cardiac: Regular Rhythm and S1/S2; Negative Murmur
GI: Soft, Nontender, Nondistended and Normal Bowel Sounds
Musculoskeletal: No Clubbing, No Cyanosis, No Edema and Other (joints improved)
Neuro: Awake
[2025-01-15] MEDS: NOVOLOG FLEXPEN-MODERATE RESISTANCE 5 UNITS SC (13:26)
[2025-01-15 13:36] LABS: Glucose - Point of Care 267 mg/dl (70-99)
[2025-01-15 17:25] LABS: Glucose - Point of Care 217 mg/dl (70-99)
[2025-01-15] MEDS: LIPITOR 10 MG PO (17:56)
[2025-01-15] MEDS: NOVOLOG FLEXPEN-MODERATE RESISTANCE 3 UNITS SC (17:58)
[2025-01-15] MEDS: FLOMAX 0.4 MG PO (20:20)
[2025-01-15 21:14] LABS: Glucose - Point of Care 192 mg/dl (70-99)
[2025-01-16] VITALS (17 sets, daily range): BP systolic 128–180; BP diastolic 67–120; PULSE 73; O2SAT 96
--- NOTE | 2025-01-16 00:55 | PTCARENOTE ---
Pt placed on nocturnal O2 test by respiratory therapist. SaO2 currently 87-90% on RA. VSS. Care ongoing.
[2025-01-16] MEDS: SYNTHROID 75 MCG PO (04:55)
[2025-01-16 05:31] LABS: Hemoglobin 11.4 g/dL (13.0-18.0); Mean Corp Hgb Conc. 33.5 g/dL (33.0-37.0); Mean Corpuscular Hgb 26.1 pg (27.0-31.0); Mean Platelet Volume 9.4 fL (7.4-10.4); Platelet Count 255 10^3/uL (130-400); Red Blood Cell Count 4.36 10^6/uL (4.70-6.10); Red Cell Dist. Width 21.3 % (11.5-14.5); White Blood Cell Count 9.9 10^3/uL (4.8-10.8)
[2025-01-16 05:50] LABS: ALT (SGPT) 19 U/L (0-50); AST (SGOT) 26 U/L (17-59); Alkaline Phosphatase 65 U/L (38-126); Blood Urea Nitrogen 57 mg/dl (9-20); Calcium 9.2 mg/dl (8.4-10.2); Carbon Dioxide 24 mmol/L (22-30); Chloride 111 mmol/L (98-107); Estimated Creatinine Clearance 59 ml/min; Glucose 163 mg/dl (70-99); Potassium 4.2 mmol/L (3.5-5.1); Sodium 141 mmol/L (135-145); Total Bilirubin 0.6 mg/dl (0.2-1.3); Total Protein 5.4 g/dl (6.3-8.2); eGFR > 60.00
--- NOTE | 2025-01-16 06:23 | PTCARENOTE ---
BP 179/77, HR 58. 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 No new orders at this time.
--- NOTE | 2025-01-16 07:39 | W.PN.HOSP.TC ---
Today's Communication/Plan
-
see AP
Assessment / Plan
Assessment / Plan
A/P:
# Hypoxemic respiratory failure/sepsis POA (fever, tachycardia) secondary to atypical multifocal pneumonia, possible viral pneumonia
# History of MRSA in sputum
Required nonrebreather, weaned off HFNC; now on 1 to [address] chest 01/10: Diffusely bilateral groundglass opacities with scattered areas of interlobular septal thickening and more confluent airspace disease in the posterior aspects of both upper and lower lobes. Suggestive of pulmonary edema.
CXR 01/12: Increased reticular and groundglass opacities throughout both lungs. Bilateral pneumonia is a possibility, with main differential consideration of bilateral pulmonary edema.
COVID and influenza negative, blood cultures negative, viral panel negative, strep/Legionella Ag negative, MRSA screen negative this admission
Cont ceftriaxone, doxycycline, plan for 10-14 day course
NO DVT on US
resume home lasix 20 mg daily 01/16
Cont incentive rizwana, acapella
Cont hydrocortisone, weaned to 50 mg every 12 hours; will need a slow taper of the next 2-3 weeks; anticipate switching over to p.o. within 24 to 48 hours or upon DC
# Septic Shock, resolved
Weaned off pressors
abx as above
Hydrocortisone stress dose, weaned to 50mg q12h
# Chest pain
suspect pleuritic with pneumonia
was given 325 asa and nitro with no relief
Trops peaked at 0.033, then trended down to 0.024
ECHO with no WMA
# metabolic Acidosis, resolved
# ROHITH resolved
resume lasix and monitor SCr
# Mild thrombocytopenia secondary to sepsis, resolved
# Gout
Continue allopurinol, colchicine
# Chronic anemia
# Essential hypertension
# NSVT
resumed decreased dose Coreg at 6.25 BID
Added nifedipine at 60 mg daily
# History of adrenal insufficiency
steroids as above
# Hypothyroidism
Continue levothyroxine
# Melanoma
# Bipolar disorder
Continue bupropion, Depakote
# Type 2 diabetes
A1c 6.4
hyperglycemia exacerbated by steroid, started insulin, on Aspart 4 units AC
cover with ISS
# Former tobacco use
# BPH
Continue tamsulosin
Full code
DVT prophylaxis�heparin SQ
Regular diet
Dispo: PT recc outpt therapy
DW RN
total time 51 min
Anticipated Discharge: > 48 hours
Subjective/Interval History
-
Date of Service: January 16, 2025
Objective Data
-
Labs:
Laboratory Results
01/16/25
05:07
WBC 9.9
Hgb 11.4 L
Hct 34.0 L
Plt Count 255
Sodium 141
Potassium 4.2
Chloride 111 H
Carbon Dioxide 24
BUN 57 H
Creatinine 1.1
Glucose 163 H
Calcium 9.2
Total Bilirubin 0.6
AST 26
ALT 19
Alkaline Phosphatase 65
Vital Signs:
Vital Signs
Temp Pulse Resp BP Pulse Ox
36.6 C 57 29 179/77 87
01/16/25 03:00 01/16/25 06:00 01/16/25 06:00 01/16/25 06:00 01/16/25 06:00
I&O
01/15/25 01/16/25 01/17/25
06:59 06:59 06:59
Intake Total 480 / 480 480 / 480
Output Total 550 / 700 1075 / 1075
Balance -70 / -220 -595 / -595
Review of Systems
-
History Source: Patient
All other systems: Not reviewed unless documented
Physical Exam
-
General: Well Developed, Well Nourished, Comfortable, Respiratory Distress (very mild) and Conversant
HEENT: Normocephalic and Atraumatic
Respiratory: Rhonchi (Bilaterally) and Non Labored Respirations; Negative Wheezes or Accessory Resp Muscle Use
Cardiac: Regular Rhythm and S1/S2; Negative Murmur
GI: Soft, Nontender, Nondistended and Normal Bowel Sounds
Musculoskeletal: No Clubbing, No Cyanosis, No Edema, Edema, Right Lower Extrem (very mild ) and Edema, Left Lower Extrem (very mild)
Neuro: Awake and Alert
Psych: Calm and Intact Judgement/Insight
Data Reviewed
-
Diagnostic Radiology: Report Reviewed by me
CT Scan: Report Reviewed by me
Labs: Labs Reviewed by me
[2025-01-16 08:29] LABS: Glucose - Point of Care 127 mg/dl (70-99)
[2025-01-16] MEDS: NOVOLOG FLEXPEN-MODERATE RESISTANCE SC (08:35)
[2025-01-16] MEDS: ASPIR LOW (ENTERIC COATED) 81 MG PO (08:36)
[2025-01-16] MEDS: COREG 6.25 MG PO ×2 (08:37→19:54)
[2025-01-16] MEDS: ZYLOPRIM 100 MG PO (08:37)
[2025-01-16] MEDS: LIDOCAINE 4% PATCH 1 PATCH TOPICAL (08:38)
[2025-01-16] MEDS: FEOSOL 325 MG PO (08:38)
[2025-01-16] MEDS: DEPAKOTE (12 HR RELEASE) 250 MG PO ×3 (08:38→23:20)
[2025-01-16] MEDS: VIBRAMYCIN 100 MG PO ×2 (08:39→20:05)
[2025-01-16] MEDS: WELLBUTRIN SR (12 hour sustained release) 150 MG PO ×2 (08:39→20:05)
[2025-01-16] MEDS: HEPARIN 5000 UNITS SC ×2 (08:39→20:05)
[2025-01-16] MEDS: COLCHICINE 0.3 MG PO (08:40)
[2025-01-16] MEDS: THERAGRAN 1 TABLET PO (08:40)
[2025-01-16] MEDS: LASIX 20 MG PO (08:41)
[2025-01-16] MEDS: VITAMIN B-12 1000 MCG PO (08:41)
[2025-01-16] MEDS: PROCARDIA XL (EXTENDED RELEASE) 60 MG PO (08:41)
[2025-01-16] MEDS: SOLU-CORTEF 50 MG IV ×2 (08:42→20:06)
[2025-01-16] MEDS: RESTASIS 0.05% OPHTHALMIC EMULSION 1 DROPS BOTH EYES ×2 (08:45→20:05)
--- NOTE | 2025-01-16 11:14 | W.PN.PUL3 ---
Today's Communication / Plan
-
- DC ceftriaxone
- Continue doxycycline for 3 more days to complete total of 10 days of therapy
- Assess for home oxygen need
- Discharge planning
- Recommended tapering hydrocortisone over next 2 weeks to eventually go back to his chronic home dose of hydrocortisone
- Outpatient follow-up with pulmonary clinic
- Pulmonary service will sign off, please call as needed
Assessment
-
Patient is a very pleasant 79-year-old gentleman with history of gout, adrenal insufficiency on chronic hydrocortisone who presented to the hospital with shortness of breath which started around Friday. Patient does not report much cough, sore
throat, runny nose or any expectoration. But he reports that his shortness of breath rather came quickly and has been progressive. He was noted to be hypoxic with O2 saturation in 70s and was on nasal cannula and then later on nonrebreather.
Patient's imaging was suggestive of bilateral infiltrates concerning for cardiogenic versus noncardiogenic edema. He was admitted to the hospital with suspected multifocal pneumonia and was started on broad-spectrum antibiotics. This morning an
PBX SUPERVISOR was called for hypotension and patient has since been on low-dose Levophed infusion. He had a follow-up CT earlier this morning which is suggestive of bilateral interstitial infiltrates concerning for pulmonary edema versus atypical pneumonia
versus ARDS. In view of increased oxygen requirement, hypotension and pressor requirement, patient is being transferred to ICU and screen maker consult is requested for further input.
Patient denies any expectoration, hemoptysis or pleuritic discomfort. No reported sick contacts. No similar episodes in the past. Patient has chronically been on hydrocortisone due to adrenal insufficiency due to Keytruda use about 2 years ago
from melanoma. He has been off this medication since. Recently he was treated with higher dose of prednisone for suspected gout flare and right arm inflammation. He reports in the past also he has required intermittent prednisone bursts for
suspected gout flare versus other rheumatological diagnosis. He follows up with the rheumatology clinic as outpatient. He finished prednisone taper on 01/04 and has currently been on his baseline hydrocortisone.
Other chronic medical diagnoses:
-HTN
-DM
-h/o Bipolar disease
-Hypothyroidism
-h/o melanoma
-BPH
-Anemia, chronic
01/12: Patient continues to be afebrile, no cough, dyspnea improving. Not on any drips. Currently down to mid flow, saturating 95%. No expectoration or fever.
Transfer out of the critical care unit.
Pulmonary following 01/13/2025.
#1. Acute hypoxic respiratory failure-improved currently 4 L nasal cannula pulse continue to wean down as able.-97% O2sat
- Bilateral infiltrates noted on imaging with broad differential diagnosis of cardiogenic versus noncardiogenic edema, both infectious and inflammatory diseases are in differential diagnosis
- Initially on high flow. Overall much improved
#2. ?Bilateral interstitial infiltrates-Per history acute development as the patient stated that he underwent a PET/CT last week and it was clear. In 2022 CAT scan there was no evidence for interstitial lung disease.
- ?Atypical pneumonia vs Pulmonary edema vs ILD(idiopathic acute interstitial pneumonia)
- MRSA screen negative, discontinued vancomycin. Since all cultures negative., discontinued Zosyn
-DC ceftriaxone. Continue doxycycline for 3 more days to complete total of 10 days
- Legionella and streptococcal pneumonia antigen negative, influenza A, B screen negative. Blood cultures negative so far. COVID-19 screen negative. Nasal MRSA screen on 01/09 negative
- Negative extended respiratory viral panel, negative Fungitell.
-Rheumatologic serology negative, ANCA, REGINA, rheumatoid factor negative-currently on high-dose hydrocortisone for stress doses as the patient has history of adrenal insufficiency.
-Agree with tapering down hydrocortisone-upon discharge-will recommend a slow taper of steroids may use prednisone over the next several weeks with close pulmonary follow-up.
- Repeat chest x-ray in the next 48 hours.
- Hemoglobin has been stable, diffuse alveolar hemorrhage less likely
- Follow-up CRP in 40s, originally was more than 200
#3. Hypotension with shock-resolved.
- Resolved, currently off Levophed, MAP greater than 65.
- Lactate is reassuring at 0.8
- Continue stress dose steroids and antibiotics
#4. History of adrenal insufficiency
- Chronically has been on hydrocortisone, continue stress dose for now-tapering down.
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
#5. History of gout,? Rheumatoid arthritis
- Patient has chronically been on colchicine
- For right arm swelling, has been treated with prednisone taper twice in the last 6 months, he recently finished prednisone on January 04
- Checking connective tissue disease panel
- Patient follows up with automotive alignment specialist as outpatient
#6. Minimal troponin leak-chest pain-free.
History of heart failure with reduced ejection fraction. Pulmonary edema in the differential diagnosis. Does not appear volume overloaded on exam.
- Suspect it is type II related to hypoxic respiratory failure and hypotension
Cardiac catheterization in 12/2022 showed only minor luminal irregularities in LAD
- Also history of aortic regurgitation and diastolic dysfunction in the past
- Lasix continues to be on hold until creatinine improved
-Cardiology has signed off-recommended restarting Lasix upon discharge.
#7. Chronic kidney disease, stage III/IV-monitor renal function, eventually restart diuresis.
- Chronic metabolic acidosis noted
- Creatinine 1.9 -improving down to 1.5.
- Urinalysis: 7-10 RBCs/11-15 white blood cells/many bacteria/granular casts 3-5. Moderate active sediment. Follow renal function closely. May need to consider nephrology evaluation if there is no improvement on renal insufficiency.
- Creatinine is improving.
Physical therapy/Occupational-increase activity as tolerated.
DVT prophylaxis, subcu heparin.
High risk situation.
Dr. Chavez updated patient and in detail 01/13/2025, 01/14/2025 at the bedside.
Patient will require outpatient pulmonary follow-up.

Data:
CXR 01/2025: New findings suggesting moderate pulmonary edema. Pneumonia not completely excluded. Clinical and laboratory correlation recommended
CT Chest 01/2025: 1. Diffusely bilateral groundglass opacities with scattered areas of interlobular septal thickening and more confluent airspace disease in the posterior aspects of both upper and lower lobes. Trace bilateral pleural effusions and
moderate cardiomegaly. Findings suggestive of pulmonary edema. Additional considerations include ARDS and diffuse alveolar hemorrhage.
ECHO 01/2025: -Left ventricular ejection fraction is 60-65%. Normal regional wall motion.
-Enlarged right ventricular size. Normal right ventricular systolic function.
-Aortic sclerosis without stenosis. Mild to moderate, eccentric aortic
regurgitation.
-Mild tricuspid regurgitation. Estimated pulmonary artery pressure of 40-45
mmHg.
-Mildly dilated aortic root (4.2 cm)
- PASP 40-45 mm with mild TR
ECHO 01/2024: Normal left ventricular chamber size with moderate concentric left ventricular
hypertrophy.
Left ventricular ejection fraction is 40-45% by Leo's method of disc.
Mild, eccentric aortic regurgitation.
Moderate pulmonary hypertension.
Dilated Sinus of Valsalva and ascending aorta.
Compared to the prior on 01/04/2022, there is now stage 2 diastolic dysfunction
and moderate pulmonary hypertension.
[facility] 12/2022: 1. Right dominant circulation with cloacal left main and minor luminal irregularities in the LAD.
2. Top normal to mildly elevated filling pressures (LVEDP = 15 mmHg at 81.5 kg).
3. Mild to moderate aortic valve insufficiency.
4. Top normal to mildly dilated aortic root.
Subjective Data
-
Date of Service:
Date of Service: January 16, 2025
Chief Complaint: Pulmonary Follow Up (Acute hypoxemic respiratory failure)
Objective Data
Data Reviewed
Vital Signs / I&O / Oxygen:
Vital Signs
Temp Pulse Resp BP Pulse Ox
98.3 F 65 17 179/81 94
01/16/25 07:58 01/16/25 08:41 01/16/25 08:23 01/16/25 08:41 01/16/25 08:53
Intake and Output
01/15/25 01/16/25 01/17/25
06:59 06:59 06:59
Intake Total 480 / 480 480 / 480
Output Total 550 / 700 1075 / 1075
Balance -70 / -220 -595 / -595
SaO2 94
Nasal Cannula flow liters per 2
minute
Physical Exam
General: Comfortable
HEENT: Normocephalic
Cardiovascular: S1-S2
Respiratory: Crackles
GI: Soft and Non Distended
Neurology: Awake, Alert, AO x 3 and No Motor Deficits
Skin: Warm
Labs/Micro/Reports
Lab Data
01/16/25 05:07
01/16/25 05:07
Microbiology
01/09/25 16:54 Blood/Venous Blood Culture - Final
No Growth - Final Report
01/09/25 16:35 Blood/Venous Blood Culture - Final
No Growth - Final Report
[2025-01-16 11:55] LABS: Glucose - Point of Care 258 mg/dl (70-99)
[2025-01-16] MEDS: NOVOLOG FLEXPEN-MODERATE RESISTANCE 5 UNITS SC (12:23)
--- NOTE | 2025-01-16 14:50 | PTCARENOTE ---
Patient is out of bed to chair, walking in room with assist of one person and rolling walker. Patient denying pain this shift. Pulse of 97% on room air. Eating majority of meals. Continent of bowel and bladder. Protective foam on sacrum. Compliant
with plan of care.
[2025-01-16] MEDS: LIPITOR 10 MG PO (17:14)
[2025-01-16] MEDS: NOVOLOG FLEXPEN-MODERATE RESISTANCE 1 UNITS SC (17:16)
[2025-01-16 17:26] LABS: Glucose - Point of Care 197 mg/dl (70-99)
--- NOTE | 2025-01-16 19:55 | PTCARENOTE ---
Assumed care of Pt received from dayshift RN. Pt had 10 second run of vtach. Pt asymptomatic awake and alert x3 no complaints of discomfort, HR now 70, BP 145/73. Pt returned to NSR. SINGE WINDER messaged an made aware. This RN administered HS dose of Coreg,
oct. call light in reach. safe environment maintained.
[2025-01-16 21:01] LABS: Glucose - Point of Care 290 mg/dl (70-99)
[2025-01-16] MEDS: FLOMAX 0.4 MG PO (23:20)
[2025-01-17] VITALS: BP 164/77
[2025-01-17 02:00] VITALS: BP 160/72
[2025-01-17 04:00] VITALS: BP 170/71
[2025-01-17] MEDS: SYNTHROID 75 MCG PO (04:59)
[2025-01-17 05:25] LABS: Hematocrit 35.2 % (39.0-52.0); Hemoglobin 11.4 g/dL (13.0-18.0); Mean Corp Hgb Conc. 32.4 g/dL (33.0-37.0); Mean Corpuscular Hgb 25.8 pg (27.0-31.0); Mean Corpuscular Volume 79.6 fL (80.0-94.0); Mean Platelet Volume 9.1 fL (7.4-10.4); Platelet Count 261 10^3/uL (130-400); Red Blood Cell Count 4.42 10^6/uL (4.70-6.10); Red Cell Dist. Width 21.6 % (11.5-14.5); White Blood Cell Count 9.5 10^3/uL (4.8-10.8)
[2025-01-17 05:44] LABS: Blood Urea Nitrogen 48 mg/dl (9-20); Calcium 9.1 mg/dl (8.4-10.2); Carbon Dioxide 28 mmol/L (22-30); Chloride 111 mmol/L (98-107); Estimated Creatinine Clearance 65 ml/min; Glucose 182 mg/dl (70-99); Magnesium 1.9 mg/dl (1.6-2.3); Sodium 143 mmol/L (135-145); eGFR > 60.00
[2025-01-17 06:00] VITALS: BP 175/81
--- NOTE | 2025-01-17 07:44 | W.PN.HOSP.TC ---
Addendum entered and electronically signed by Gretchen Cantu MD 01/17/25 14:14:
total DC time 36 min
Original Note:
Today's Communication/Plan
-
DC today once home O2 set up
Assessment / Plan
Assessment / Plan
A/P:
# Hypoxemic respiratory failure/sepsis POA (fever, tachycardia) secondary to atypical multifocal pneumonia, possible viral pneumonia
# History of MRSA in sputum
Required nonrebreather, weaned off HFNC; now on 1 to 2 L NC for night time use, RA during day time
CT chest 01/10: Diffusely bilateral groundglass opacities with scattered areas of interlobular septal thickening and more confluent airspace disease in the posterior aspects of both upper and lower lobes. Suggestive of pulmonary edema.
CXR 01/12: Increased reticular and groundglass opacities throughout both lungs. Bilateral pneumonia is a possibility, with main differential consideration of bilateral pulmonary edema.
COVID and influenza negative, blood cultures negative, viral panel negative, strep/Legionella Ag negative, MRSA screen negative this admission
s/p ceftriaxone, cont doxycycline for total 10 days (2 more days after DC)
NO DVT on US
resumed home lasix 20 mg daily 01/16
Cont incentive rizwana, acapella
Cont hydrocortisone, weaned to 50 mg every 12 hours; will need a slow taper of the next 2-3 weeks back to home dose (15 daily/5 HS)
# Septic Shock, resolved
Weaned off pressors
abx as above
Hydrocortisone stress dose, weaned to 50mg q12h
# Chest pain
suspect pleuritic with pneumonia
was given 325 asa and nitro with no relief
Trops peaked at 0.033, then trended down to 0.024
ECHO with no WMA
# metabolic Acidosis, resolved
# ROHITH resolved
resume lasix and monitor SCr
# Mild thrombocytopenia secondary to sepsis, resolved
# Gout
Continue allopurinol, colchicine
# Chronic anemia
# Essential hypertension
# NSVT
resumed decreased dose Coreg at 6.25 BID
Added nifedipine at 60 mg daily
# History of adrenal insufficiency
steroids as above
# Hypothyroidism
Continue levothyroxine
# Melanoma
# Bipolar disorder
Continue bupropion, Depakote
# Type 2 diabetes
A1c 6.4
hyperglycemia exacerbated by steroid, started insulin, on Aspart 4 units AC
cover with ISS
# Former tobacco use
# BPH
Continue tamsulosin
Full code
DVT prophylaxis�heparin SQ
Regular diet
Dispo: PT recc outpt therapy
Anticipated Discharge: Today
Subjective/Interval History
-
Date of Service: January 17, 2025
Objective Data
-
Labs:
Laboratory Results
01/17/25
05:05
WBC 9.5
Hgb 11.4 L
Hct 35.2 L
Plt Count 261
Sodium 143
Potassium 4.0
Chloride 111 H
Carbon Dioxide 28
BUN 48 H
Creatinine 1.0
Glucose 182 H
Calcium 9.1
Vital Signs:
Vital Signs
Temp Pulse Resp BP Pulse Ox
36.5 C 68 16 175/81 96
01/17/25 03:02 01/17/25 06:00 01/17/25 06:00 01/17/25 06:00 01/17/25 06:00
I&O
01/16/25 01/17/25 01/18/25
06:59 06:59 06:59
Intake Total 480 / 480 680 / 680
Output Total 1075 / 1075 1700 / 1700
Balance -595 / -595 -1020 / -1020
Review of Systems
-
History Source: Patient
All other systems: Reviewed and negative
Physical Exam
-
General: Well Developed, Well Nourished, Comfortable and Conversant
HEENT: Normocephalic and Atraumatic
Respiratory: Rhonchi (Bilaterally, improved ) and Non Labored Respirations; Negative Wheezes or Accessory Resp Muscle Use
Cardiac: Regular Rhythm and S1/S2; Negative Murmur
GI: Soft, Nontender, Nondistended and Normal Bowel Sounds
Musculoskeletal: No Clubbing, No Cyanosis, No Edema, Edema, Right Lower Extrem (very mild ) and Edema, Left Lower Extrem (very mild)
Neuro: Awake and Alert
Psych: Calm and Intact Judgement/Insight
Data Reviewed
-
Diagnostic Radiology: Report Reviewed by me
CT Scan: Report Reviewed by me
Labs: Labs Reviewed by me
[2025-01-17 07:55] LABS: Glucose - Point of Care 121 mg/dl (70-99)
[2025-01-17 08:00] VITALS: BP 161/81
[2025-01-17] MEDS: NOVOLOG FLEXPEN-MODERATE RESISTANCE SC (08:11)
[2025-01-17] MEDS: PROCARDIA XL (EXTENDED RELEASE) 60 MG PO (08:29)
[2025-01-17] MEDS: WELLBUTRIN SR (12 hour sustained release) 150 MG PO (08:29)
[2025-01-17] MEDS: COLCHICINE 0.3 MG PO (08:30)
[2025-01-17] MEDS: VIBRAMYCIN 100 MG PO (08:30)
[2025-01-17] MEDS: FEOSOL 325 MG PO (08:31)
[2025-01-17] MEDS: VITAMIN B-12 1000 MCG PO (08:31)
[2025-01-17] MEDS: DEPAKOTE (12 HR RELEASE) 250 MG PO (08:31)
[2025-01-17] MEDS: ASPIR LOW (ENTERIC COATED) 81 MG PO (08:31)
[2025-01-17] MEDS: ZYLOPRIM 100 MG PO (08:31)
[2025-01-17] MEDS: RESTASIS 0.05% OPHTHALMIC EMULSION 1 DROPS BOTH EYES (08:31)
[2025-01-17] MEDS: COREG 6.25 MG PO (08:32)
[2025-01-17] MEDS: LASIX 20 MG PO (08:32)
[2025-01-17] MEDS: SOLU-CORTEF 50 MG IV (08:32)
[2025-01-17] MEDS: HEPARIN 5000 UNITS SC (08:32)
[2025-01-17] MEDS: THERAGRAN 1 TABLET PO (08:32)
[2025-01-17] MEDS: LIDOCAINE 4% PATCH TOPICAL (08:37)
[2025-01-17 10:00] VITALS: BP 149/73
[2025-01-17 11:37] LABS: Glucose - Point of Care 153 mg/dl (70-99)
[2025-01-17] MEDS: NOVOLOG FLEXPEN-MODERATE RESISTANCE 1 UNITS SC (11:41)
--- NOTE | 2025-01-17 12:37 | PTCARENOTE ---
Pt for d/c home. Instructions and med list reviewed at length with pt and . IV and monitor equipment removed. Belongings collected from room. D/c off unit via wheelchair.
--- NOTE | 2025-01-17 13:54 | W.DCSUMMARY ---
Discharge Summary
Discharge Data
Date of Admission: 01/09/25
Date of Discharge: 01/17/25
-
Pending Results: No
Hospital Course
Principal Diagnosis:
Acute hypoxic respiratory failure/sepsis secondary to atypical multifocal pneumonia
Septic Shock, resolved.
Chronic Diagnoses:�
Gout, on allopurinol, colchicine
Chronic anemia
Essential hypertension
History of adrenal insufficiency on chronic hydrocortisone
Hypothyroidism, on levothyroxine
Melanoma
Bipolar disorder, on bupropion, Depakote
Type 2 diabetes, A1c 6.4%
Former tobacco use
BPH on tamsulosin
Consultations:�
Pulmonary/cardiovascular operating room nurse
Cardiology
Procedures:�
None
Clinical course:�
This is a 79-year-old male, with past medical history as stated above, who presented with shortness of breath, productive cough and weakness for several days.
Problem 1:
Acute hypoxic respiratory failure/sepsis secondary to atypical multifocal pneumonia.
He initially required nonrebreather and high flow nasal cannula oxygen support, and oxygen was slowly weaned off.
He had good saturation on room air during daytime prior to discharge, but his nocturnal pulse ox indicated need for continued O2 support at night time during sleep, hence home oxygen was set up for the patient for nocturnal use.
His CT chest from 01/10 showed diffusely bilateral groundglass opacities with scattered areas of interlobular septal thickening and more confluent airspace disease in the posterior aspects of both upper and lower lobes.
His COVID and influenza tests, blood cultures, viral respiratory panel, strep/Legionella Ag, and MRSA screen were all negative this admission.
He received IV ceftriaxone and doxycycline while in the hospital, and he was discharged with doxycycline alone to complete total 10 days of doxycycline (2 more days following discharge).
Problem 2:
Septic Shock, resolved.
He was weaned off pressors and blood pressure improved on stress dose steroid.
He was discharged to continue hydrocortisone taper from 50 mg twice daily back to his previous home dose at 15 mg in the morning, 5 mg at night.
Problem 3:
Chest pain suspect pleuritic with pneumonia.
His Trops peaked at 0.033, then trended down to 0.024.
As for the rest of his medical problems, they were stable during his hospital stay.
Discharge Plan
-
Patient Disposition: Home with Home Care
Discharge Diagnosis/Procedures: Acute hypoxic respiratory failure secondary to atypical multifocal pneumonia;
Septic Shock, resolved;
Resolved metabolic acidosis
Condition: Fair
Diet: As tolerated
Activity: As tolerated
Driving Restrictions: As prior to admission
Activity Restrictions/Additional Instructions:
Continue oxygen use for night time
Referrals:
Hannah Deras MD [Family Provider, Family Practice] - in less than 1 week
Burt José MD [Active, Pulmonary Medicine] - in two to three weeks
Referral Note: 6-minute walk testing
Additional Discharge Medication Instructions: take hydrocortisone:
50 twice daily x3 days, 40 mg twice daily x3 days, 30 mg twice daily x3 days, 20 mg twice daily x3 days, then resume previous home dose at 20 mg daily and 5 mg at night going forward
Your coreg dose was decreased from 12.5 mg twice daily to 6.25 mg twice daily
Prescriptions:
New
doxycycline hyclate 100 mg Capsule
100 mg PO BID 2 Days Qty: 4 0RF
carvedilol 6.25 mg Tablet
6.25 mg PO BID Qty: 60 0RF
hydrocortisone 10 mg tablet
10 mg PO BID Qty: 100 0RF
Rx Instructions:
50 twice daily 3days, 40 twice daily 3days, 30 twice daily 3days, 20 twice daily 3days, 20 daily and 5 at night
Continued
divalproex [Depakote] 250 MG tablet,delayed release (DR/EC)
250 mg PO TID
atorvastatin 10 MG tablet
10 mg PO QPM
aspirin 81 MG tablet,delayed release (DR/EC)
81 mg PO DAILY
multivitamin Tablet
1 tab PO DAILY
tamsulosin 0.4 mg Capsule
0.4 mg PO HS
cyclosporine 0.05 % Drops
1 drp BOTH EYES Q12H
bupropion HCl 150 mg Tablet Sustained-Release 12 Hr
150 mg PO BID
ferrous sulfate [FeroSul] 325 mg (65 mg iron) Tablet
325 mg PO DAILY Qty: 0 0RF
allopurinol 100 mg Tablet
100 mg PO DAILY Qty: 30 0RF
levothyroxine 75 mcg Tablet
75 mcg PO DAILY@0700
colchicine 0.6 mg tablet
0.3 mg PO DAILY
acetaminophen [Tylenol Extra Strength] 500 MG tablet
500 mg PO DAILYPRN PRN (Reason: mild pain)
amlodipine 5 mg tablet
5 mg PO DAILY
furosemide 20 mg Tablet
20 mg PO DAILY
Entresto 49-51 mg Tablet
0.5 tab PO BID
cyanocobalamin (vitamin B-12) 1,000 mcg Tablet
1,000 mcg PO DAILY
famotidine 20 mg Tablet
20 mg PO HSPRN PRN (Reason: gerd)
Refresh Optive 0.5-0.9 % Drops
1 drp OPHTHALMIC (EYE) DAILYPRN PRN (Reason: dry eyes)
Held
hydrocortisone 5 mg Tablet
5 mg PO QPM
Hold Instructions: Resume on 01/29/25.
hydrocortisone 5 mg Tablet
15 mg PO DAILY@0800
Hold Instructions: Resume on 01/29/25.
Discontinued
carvedilol 12.5 mg Tablet
12.5 mg PO Q12H
testosterone 20.25 mg/1.25 gram (1.62 %) Gel In Metered-Dose Pump
1 pump TOPICAL DAILY
Rx Instructions:
apply to upper arms, shoulder or abdomen
Discharge Orders:
Discharge Patient (As Directed); Ordered 01/17/25
Ordered By: Gretchen Cantu
Discharge Date and Time
Discharge Date/Time: 01/17/25 12:34
Print Language: MAORI
--- NOTE | 2025-01-18 13:23 | CM ---
Late Entry for 01/17/25:
Patient with Dx Hypoxemic respiratory failure/sepsis secondary to pneumonia. Nocturnal sleep study 01/16. O2 2L. PT/OT recommend outpatient therapy.
Spoke with [facility]; they received the referral and can deliver home O2 concentrator on 01/17.
Met with patient; he felt ready for d/c today. IMM completed.
The patient agreed to a home O2 concentrator for HS through [facility].
He wishes to resume outpatient PT/OT and says he doesn't need a new script.
His will provide transport home today.
Plan home today with home O2 concentrator for HS through [facility], with resumption outpatient PT/OT.
== END 2025-01-17 12:34 | disposition home or self-care (01) | DRG 871 ==
LOC: IMU 19:06
PROVIDERS: Internal Medicine; Internal Medicine Critical Care Medicine; Physician Assistant; ADMITTING PHYSICIAN Hospitalist; ATTENDING PHYSICIAN Internal Medicine; CONSULT PHYSICIAN Internal Medicine; CONSULT PHYSICIAN Internal Medicine Cardiovascular Disease; EMERGENCY PHYSICIAN Student in an Organized Health Care Education/Training Program; FAMILY PHYSICIAN Family Medicine
PROC: 5A09357 Assistance with Respiratory Ventilation, Less than 24 Consecutive Hours, Continuous Positive Airway Pressure (ICD-10-PCS; 2025-01-10)
DX: A41.9 Sepsis, unspecified organism (principal); J18.9 Pneumonia, unspecified organism; J96.01 Acute respiratory failure with hypoxia; R65.21 Severe sepsis with septic shock; I13.0 Hypertensive heart and chronic kidney disease with heart failure and stage 1 through stage 4 chronic kidney disease, or unspecified chronic kidney disease; I50.22 Chronic systolic (congestive) heart failure; E27.40 Unspecified adrenocortical insufficiency; F31.30 Bipolar disorder, current episode depressed, mild or moderate severity, unspecified; E87.22 Chronic metabolic acidosis; I42.8 Other cardiomyopathies; I5A Non-ischemic myocardial injury (non-traumatic); M10.9 Gout, unspecified; E11.22 Type 2 diabetes mellitus with diabetic chronic kidney disease; D63.1 Anemia in chronic kidney disease; E03.9 Hypothyroidism, unspecified; Z87.891 Personal history of nicotine dependence; N40.0 Benign prostatic hyperplasia without lower urinary tract symptoms; Z85.820 Personal history of malignant melanoma of skin; Z79.899 Other long term (current) drug therapy; Z79.890 Hormone replacement therapy; K21.9 Gastro-esophageal reflux disease without esophagitis; Z79.82 Long term (current) use of aspirin; N18.30 Chronic kidney disease, stage 3 unspecified; E78.00 Pure hypercholesterolemia, unspecified; D69.59 Other secondary thrombocytopenia; Z86.14 Personal history of Methicillin resistant Staphylococcus aureus infection; E11.65 Type 2 diabetes mellitus with hyperglycemia; T38.0X5A Adverse effect of glucocorticoids and synthetic analogues, initial encounter; M79.0 Rheumatism, unspecified; Z11.52 Encounter for screening for COVID-19
CPT/HCPCS: 36600; 70450; 71045; 71250; 80048; 80053; 80202; 81015; 82805; 82947; 82962; 83036; 83516; 83605; 83735; 83880; 84443; 84484; 85025; 85027; 85610; 85730; 86038; 86140; 86200; 86430; 87040; 87449; 87502; 87633; 87641; 87811; 87899; 93005; 93306; 93970; 94660; 94762; 96365; 96375; 97116; 97163; 97166; 99285

== ENCOUNTER → 2025-01-20 09:12 | Outpatient (REF) | payer MEDICARE, OTHER, SELFPAY | LOC: HWRAD 09:12 | PROVIDERS: ATTENDING PHYSICIAN Student in an Organized Health Care Education/Training Program; FAMILY PHYSICIAN Family Medicine | DX: E27.40 Unspecified adrenocortical insufficiency (principal); G89.29 Other chronic pain; M10.9 Gout, unspecified; M11.20 Other chondrocalcinosis, unspecified site; M25.431 Effusion, right wrist; M25.432 Effusion, left wrist; M25.511 Pain in right shoulder; M25.512 Pain in left shoulder; M25.60 Stiffness of unspecified joint, not elsewhere classified; M79.89 Other specified soft tissue disorders; R70.0 Elevated erythrocyte sedimentation rate; M81.0 Age-related osteoporosis without current pathological fracture | CPT/HCPCS: 77080 ==

== ENCOUNTER → 2025-01-28 16:56 | Outpatient (REF) | payer MEDICARE, OTHER, SELFPAY | LOC: RAD 16:56 | PROVIDERS: ATTENDING PHYSICIAN Student in an Organized Health Care Education/Training Program; FAMILY PHYSICIAN Family Medicine | DX: E27.40 Unspecified adrenocortical insufficiency (principal); G89.29 Other chronic pain; I82.409 Acute embolism and thrombosis of unspecified deep veins of unspecified lower extremity; M10.9 Gout, unspecified; M25.60 Stiffness of unspecified joint, not elsewhere classified; R22.43 Localized swelling, mass and lump, lower limb, bilateral | CPT/HCPCS: 93970 ==

== ENCOUNTER → 2025-03-23 10:51 | Outpatient (REF) | payer MEDICARE, OTHER, SELFPAY | LOC: RCS 10:51 | PROVIDERS: ATTENDING PHYSICIAN Student in an Organized Health Care Education/Training Program; FAMILY PHYSICIAN Family Medicine | DX: E27.40 Unspecified adrenocortical insufficiency (principal); G89.29 Other chronic pain; M10.9 Gout, unspecified; M11.20 Other chondrocalcinosis, unspecified site; M25.431 Effusion, right wrist; M25.432 Effusion, left wrist; M25.511 Pain in right shoulder; M25.512 Pain in left shoulder; M25.60 Stiffness of unspecified joint, not elsewhere classified; M79.89 Other specified soft tissue disorders; N20.0 Calculus of kidney; R70.0 Elevated erythrocyte sedimentation rate | CPT/HCPCS: 93005 ==

== ENCOUNTER → 2025-04-15 11:08 | Outpatient (REF) | payer MEDICARE, OTHER, SELFPAY | LOC: HWRAD 11:08 | PROVIDERS: ATTENDING PHYSICIAN Internal Medicine Critical Care Medicine; FAMILY PHYSICIAN Family Medicine | DX: J84.9 Interstitial pulmonary disease, unspecified (principal) | CPT/HCPCS: 71250 ==

== ENCOUNTER → 2025-06-07 08:30 | Outpatient (REF) | payer MEDICARE, OTHER, SELFPAY | LOC: HWRAD 08:30 | PROVIDERS: ATTENDING PHYSICIAN Internal Medicine Critical Care Medicine; FAMILY PHYSICIAN Family Medicine; REFERRING PHYSICIAN Surgery | DX: R06.00 Dyspnea, unspecified (principal); J84.9 Interstitial pulmonary disease, unspecified; N40.1 Benign prostatic hyperplasia with lower urinary tract symptoms; N20.0 Calculus of kidney | CPT/HCPCS: 71250; 74176 ==